=== PATIENT | male | born 1955 | race Caucasian/White ===

== ENCOUNTER → 2018-01-21 07:13 | Outpatient (CLI) | payer OTHER, SELFPAY ==
[2018-01-21 08:35] LABS: Absolute Lymphocyte Count 2.56 X10^3/ul (0.83-4.51); Absolute Neutrophil Count 3.2 X10^3/uL (2.0-7.7); Basophil# 0.04 X10^3/uL; Basophil% 0.6 % (0-1); Eosinophils% 3.1 % (0-5); Hematocrit 42.9 % (40-54); Hemoglobin 14.3 g/dl (13.0-16.5); Lymphocyte # 2.56 X10^3/ul (4.0); Lymphocyte % 39.3 % (19-41); Mean Corp Hgb Conc 33.3 g/gl (32-36); Mean Corpuscular Hgb 32.9 pg (27.0-32.0); Mean Corpuscular Volume 98.6 fL (80-94); Mean Platelet Vol. 9.4 fl (6.2-12.0); Monocyte# 0.51 X10^3/uL; Monocyte% 7.8 % (0-10); Neutrophil # 3.19 X10^3/uL (2.7-7.7); Neutrophil % 48.9 % (47-70); Platelet Count 261 K/mm3 (150-450); RBC Distribution Width CV 12.6 % (11.6-14.6); Red Blood Count 4.35 M/mm3 (4.6-6.2); White Blood Count 6.5 K/mm3 (4.4-11.0)
[2018-01-21 08:37] LABS: POSITIVE COUNT NO; POSITIVE DIFFERENTIAL NO; POSITIVE MORPHOLOGY NO
[2018-01-21 09:00] LABS: ALB/GLOB Ratio 1.2 RATIO (0.9-2.4); AST(SGOT) 16 U/L (15-37); Alanine Aminotransfer ALT/SGPT 19 U/L (16-61); Albumin, Serum 3.9 g/dL (3.2-5.0); Alkaline Phosphatase 96 U/L (45-117); Anion Gap 8 (5-15); BUN 13 mg/dL (7-18); BUN/Creat Ratio 14.3 RATIO (10-20); Calcium,Total 8.6 mg/dL (8.5-10.1); Chloride 104 mmol/L (98-107); Cholesterol 192 mg/dL (200); Creatinine, Serum 0.91 mg/dL (0.70-1.30); EST Glomerular Filtration Rate 89 mL/min (>60); Est Glom Filt Rate - Afr Amer 107 mL/min (>60); Globulin 3.3 g/dL (2.2-4.2); Glucose 85 mg/dL (74-106); High Density Lipoprotein 55 mg/dL; Potassium 3.9 mmol/L (3.5-5.1); Protein, Total 7.2 g/dL (6.4-8.2); Sodium Level 140 mmol/L (136-145); Thyroid Stim Hormone (TSH) 1.73 uIU/mL (0.358-3.74); Triglycerides 105 mg/dL; Very Low Density Lipoprotein 21 mg/dL (5-40)
== END ==
PROVIDERS: Family Provider Internal Medicine; PCP Internal Medicine; Visit Provider Nurse Practitioner Family
DX: Z00.00 Encounter for general adult medical examination without abnormal findings (principal); M10.9 Gout, unspecified; N52.9 Male erectile dysfunction, unspecified
CPT/HCPCS: 36415; 80053; 80061; 84443; 85025

== ENCOUNTER → 2019-01-23 07:11 | Outpatient (CLI) | payer OTHER, SELFPAY ==
[2019-01-18 16:06] VITALS: BMI 24.0
[2019-01-23 08:38] LABS: Absolute Neutrophil Count 3.6 X10^3/uL (2.0-7.7); Basophil# 0.03 X10^3/uL; Basophil% 0.4 % (0-1); Eosinophil# 0.18 X10^3/uL; Eosinophils% 2.6 % (0-5); Hematocrit 43.6 % (40-54); Hemoglobin 14.6 g/dl (13.0-16.5); Lymphocyte % 38.4 % (19-41); Mean Corp Hgb Conc 33.5 g/gl (32-36); Mean Corpuscular Hgb 33.6 pg (27.0-32.0); Mean Corpuscular Volume 100.2 fL (80-94); Mean Platelet Vol. 9.3 fl (6.2-12.0); Monocyte# 0.53 X10^3/uL; Monocyte% 7.5 % (0-10); Neutrophil # 3.59 X10^3/uL (2.7-7.7); Platelet Count 255 K/mm3 (150-450); RBC Distribution Width CV 12.1 % (11.6-14.6); Red Blood Count 4.35 M/mm3 (4.6-6.2)
[2019-01-23 08:39] LABS: POSITIVE COUNT NO; POSITIVE DIFFERENTIAL NO; POSITIVE MORPHOLOGY NO
[2019-01-23 09:04] LABS: Anion Gap 6 (5-15); BUN 13 mg/dL (7-18); BUN/Creat Ratio 14.3 RATIO (10-20); Calcium,Total 8.7 mg/dL (8.5-10.1); Chloride 107 mmol/L (98-107); Cholesterol 215 mg/dL (200); Creatinine, Serum 0.91 mg/dL (0.70-1.30); EST Glomerular Filtration Rate 89 mL/min (>60); Est Glom Filt Rate - Afr Amer 107 mL/min (>60); Glucose 86 mg/dL (74-106); High Density Lipoprotein 56 mg/dL; PSA,Total - Annual Screen 6.29 ng/mL (0.00-4.00); Potassium 3.9 mmol/L (3.5-5.1); Sodium Level 140 mmol/L (136-145); Thyroid Stim Hormone (TSH) 2.07 uIU/mL (0.358-3.74); Triglycerides 111 mg/dL; Very Low Density Lipoprotein 22 mg/dL (5-40)
== END ==
PROVIDERS: Family Provider Internal Medicine; PCP Internal Medicine; Referring Provider Nurse Practitioner Family; Visit Provider Nurse Practitioner Family
DX: R97.20 Elevated prostate specific antigen [PSA] (principal); Z13.0 Encounter for screening for diseases of the blood and blood-forming organs and certain disorders involving the immune mechanism
CPT/HCPCS: 36415; 80048; 80061; 84153; 84443; 85025; G0103

== ENCOUNTER → 2019-01-31 14:36 | Outpatient (CLI) | payer OTHER, SELFPAY ==
[2019-01-18 16:06] VITALS: BMI 24.0
[2019-01-31 16:26] LABS: Vitamin B12 570 pg/mL (211-911)
[2019-02-02 20:07] LABS: Folate, Hemolysate Test 486.5 ng/mL (Not Estab.); Folate, RBC (Hct) Test 41.5 % (37.5-51.0)
[2019-02-03 12:57] LABS: Folates, RBC Test 1172 ng/mL (>498)
== END ==
PROVIDERS: Family Provider Internal Medicine; PCP Internal Medicine; Referring Provider Nurse Practitioner Family; Visit Provider Nurse Practitioner Family
DX: D53.9 Nutritional anemia, unspecified (principal)
CPT/HCPCS: 36415; 82607; 82747; 83921; 85014

== ENCOUNTER 2019-11-30 22:58 | Emergency (ER) | payer OTHER, SELFPAY ==
[2019-01-18 16:06] VITALS: BMI 24.0
[2019-11-30 22:58] VITALS: BP 151/101; PULSE 64; RESP 18; TEMP 37.2; O2SAT 98; BMI 24.3
--- NOTE | 2019-11-30 23:34 | ED.VIS.GEN ---
History of Present Illness Chief Complaint: Abd Pain Informant: Patient Narrative: Stated he is having some right lower abdominal pain. It started approximately 6 to 7 hours ago. It is a dull discomfort and he will feel waxing and waning sharp pain. No history of kidney stones. It does not really hurt to push on it. He is had nausea with several episodes of vomiting. No home treatment. Current severity is mild to moderate. Does not feel any significant tenderness in his back but does feel some right-sided flank pain. No previous abdominal surgeries. He is never had this before. - Past Medical History (1) Elevated PSA Status: Acute (2) History of asthma Status: Acute (3) Erectile dysfunction Status: Chronic (4) Gout Status: Chronic (5) Rosacea Status: Chronic Past Medical History - Allergies and Home Meds Allergies/Adverse Reactions: Allergies No Known Allergies Allergy (Verified 12/01/19 00:05) Primary Care Physician: Gregg Powers MD [Primary Care Provider] - Prior records reviewed: Yes Past Medical History: - - See problem list Surgical History: noncontributory Lives: With Family Smoking Status: Never smoker Alcohol: None Drugs: None Review of Systems General: Denies: Chills, Fever, Sweats Eyes: Denies: Visual changes - bilaterally, Diplopia ENT: Denies: Rhinorrhea, Sore throat Cardiovascular: Denies: Chest pain, Palpitations Respiratory: Denies: Dyspnea, Cough, Dyspnea on exertion Gastrointestinal: Reports: Abdominal pain, Nausea, Vomiting. Denies: Diarrhea, Melena, Hematochezia Genitourinary: Denies: Dysuria, Hematuria, Frequency Musculoskeletal: Denies: Back pain, Extremity Pain Skin: Denies: Rash, Wounds Neurological: Denies: Headache, Weakness, Numbness Physical Exam Vital Signs/Narrative: Vital Signs Temp Pulse Resp BP Pulse Ox 11/30/19 22:58 98.9 F 64 18 151/101 H 98 General: Well nourished, Well developed, No Acute Distress Head: Normocephalic, Atraumatic Eyes: Perrl, EOMI ENT: Moist mucous membranes, No rhinorrhea Neck: Supple, Nontender Cardiovascular: Regular rate, Regular rhythm, No murmurs Respiratory: No distress, CTA bilaterally, Chest nontender Abdomen: Soft, Nondistended, Normal bowel sounds, Tender - Slight tenderness in the right flank and right lower quadrant. It is very minimal., -. Negative for: Nontender, Guarding, Rebound tenderness, Ventral hernia, Inguinal hernia, Umbilical hernia Back: Nontender, Normal Inspection Extremities: Nontender, No edema Skin: Normal color, No rash Neurological: Alert, Oriented x3, Cranial nerves II-XII grossly intact, Normal Strength, Normal Sensation Psychological: Normal affect, Normal Mood Diagnostic/Tx/Re-eval - Medical Decision Making Patient given IV fluids Toradol morphine. Lab work obtained. CAT scan of the abdomen pelvis obtained. Patient given Zofran. Lab work shows a leukocytosis otherwise nothing acute including normal urine with 0-5 red blood cells. CAT scan shows a distal 5 mm kidney stone with renal stones as well. Patient felt much better after treatment resting comfortably. Will be discharged with Percocet and Zofran to follow-up with urology ED Disposition - Plan for ED Patient: Disposition: Home or Assisted Living Diagnosis: Kidney stone on right side Instructions: KIDNEY STONE w/ Colic Prescriptions: Oxycodone HCl/Acetaminophen [Percocet 5/325] 1 - 2 tab PO Q6H PRN PRN 3 Days #12 tab PRN Reason: Pain Prescription Printed Ondansetron [Zofran Odt] 4 mg PO Q8H PRN PRN #10 tab PRN Reason: Nausea Prescription Printed Referrals: Eitan Patterson MD [STAFF PHYSICIAN] -
[2019-11-30 23:53] LABS: Absolute Lymphocyte Count 1.21 X10^3/uL (0.83-4.51); Absolute Neutrophil Count 12.6 X10^3/uL (2.0-7.7); Basophil# 0.02 X10^3/uL; Basophil% 0.1 % (0-1); Eosinophil# 0.01 X10^3/uL; Eosinophils% 0.1 % (0-5); Hematocrit 43.9 % (40-54); Hemoglobin 14.7 g/dL (13.0-16.5); Lymphocyte # 1.21 X10^3/ul (4.0); Lymphocyte % 8.4 % (19-41); Mean Corp Hgb Conc 33.5 g/dL (32-36); Mean Corpuscular Hgb 32.8 pg (27.0-32.0); Mean Platelet Vol. 9.9 fl (6.2-12.0); Monocyte# 0.46 X10^3/uL; Monocyte% 3.2 % (0-10); NRBC Flagged by Analyzer 0 % (0-5); Neutrophil # 12.64 X10^3/uL (2.7-7.7); Neutrophil % 87.8 % (47-70); POSITIVE COUNT YES; Platelet Count 242 K/mm3 (150-450); RBC Distribution Width CV 11.8 % (11.6-14.6); RBC Distribution Width SD 42.6 fl (35.1-43.9); Red Blood Count 4.48 M/mm3 (4.6-6.2); White Blood Count 14.4 K/mm3 (4.4-11.0)
[2019-12-01] MEDS: 0.9% Normal Saline 1,000 ML 1000 ML IV (00:03)
[2019-12-01] MEDS: Ketorolac 30 MG/ML Syringe IV (00:04)
[2019-12-01] MEDS: Ondansetron 4 MG/2 ML Vial IV (00:04)
[2019-12-01] MEDS: Morphine 4 MG/ML Syringe IV (00:07)
[2019-12-01 00:08] LABS: ALB/GLOB Ratio 1.4 RATIO (0.9-2.4); AST(SGOT) 16 U/L (15-37); Alanine Aminotransfer ALT/SGPT 22 U/L (16-61); Albumin, Serum 4.4 g/dL (3.2-5.0); Alkaline Phosphatase 104 U/L (45-117); Anion Gap 9 (5-15); BUN 17 mg/dL (7-18); BUN/Creat Ratio 15.2 RATIO (10-20); Calcium,Total 9.4 mg/dL (8.5-10.1); Chloride 101 mmol/L (98-107); Creatinine, Serum 1.12 mg/dL (0.70-1.30); EST Glomerular Filtration Rate 70 mL/min (>60); Est Glom Filt Rate - Afr Amer 84 mL/min (>60); Estimated Creatinine Clearance 79.65 ml/min; Globulin 3.2 g/dL (2.2-4.2); Glucose 144 mg/dL (74-106); Lipase 106 U/L (73-393); Potassium 3.6 mmol/L (3.5-5.1); Protein, Total 7.6 g/dL (6.4-8.2); Sodium Level 137 mmol/L (136-145)
[2019-12-01 00:15] LABS: Bacteria 0 SEEN /hpf (None Seen); Mucous, Urine 0 SEEN /hpf (<or=2+); Squamous Epithelial Cells - UA 0 SEEN /hpf (0-5); White Blood Cells 0 SEEN /hpf (0-5)
[2019-12-01 00:50] LABS: Color, Urine Yellow (Yellow); Glucose, Dipstick Normal (Normal); Ketone-Dipstick 50 mg/dl (Negative); Leukocyte Esterase-Dipstick Negative /ul (Negative); Nitrite-Dipstick Negative (Negative); Occult Blood-Urine 10 /ul (Negative); Protein-Dipstick Negative (Negative); Urine Bilirubin Dipstick Negative (Negative); Urine Clarity Sl. Cloudy (Clear); Urine Urobilinogen Normal (Normal)
[2019-12-01 00:56] LABS: Red Blood Cells-Urine 0-5 SEEN /hpf (0-5)
[2019-12-01 02:28] VITALS: BP 138/81; PULSE 79; RESP 18; O2SAT 100
--- NOTE | 2019-12-01 02:29 | ED.RN ---
THIS NURSE REVIEWED D/C INSTRUCTIONS WITH PT. PT VERBALIZED UNDERSTANDING OF INSTRUCTIONS. IV D/C. IV CATHETER INTACT. PT TOLERATED WELL. PT DENIES FURTHER NEEDS OR QUESTIONS AT THIS TIME.
--- NOTE | 2019-12-01 23:33 | CT_ITS ---
STUDY: CT ABDOMEN AND PELVIS WITHOUT CONTRAST REASON FOR EXAM: Male, 64 years old. RLQ PAIN, NAUSEA/VOMITING SINCE 4:30 PM, INCREASED WBC RADIATION DOSAGE (If Supplied By Facility): CTDIvol = ( 8.33 ) mGy, DLP = ( 412.02 ) mGycm TECHNIQUE: Transaxial images were obtained from the dome of the diaphragm to the symphysis pubis without oral contrast, and without intravenous contrast. Sagittal and coronal images were reconstructed. Individualized dose optimization techniques were used for this CT. COMPARISON: None. FINDINGS: The visualized lung bases are unremarkable. The visualized portions of the heart are within normal limits. Normal liver. Normal gallbladder and extrahepatic biliary system. Normal spleen. Normal pancreas. Normal bilateral adrenal glands. Multiple bilateral kidney stones are noted the largest measures 6 mm is in the left kidney. There is moderate right hydronephrosis and hydroureter due to presence of 5 mm stone in distal end of the right ureter at ureterovesical junction. Normal visualized stomach. Normal small intestine. There are multiple colonic diverticula consistent with diverticulosis. There is non-visualization of the appendix. Normal abdominal aorta. Normal inferior vena cava. Normal retroperitoneum. Normal urinary bladder. Normal abdominal wall. There is fusion of the sacroiliac joints suggesting chronic inflammatory arthritis. CT/Abdomen/Pelvis without Cont IMPRESSION: Multiple bilateral kidney stones are noted the largest measures 6 mm is in the left kidney. There is moderate right hydronephrosis and hydroureter due to presence of 5 mm stone in distal end of the right ureter at ureterovesical junction. Electronically Signed: Alyssa Harkins, at 2:02 EST Tel , Service support ,
== END 2019-12-01 02:32 | disposition home or self-care (01) ==
PROVIDERS: Emergency Provider Emergency Medicine; Family Provider Internal Medicine; PCP Internal Medicine
DX: N13.2 Hydronephrosis with renal and ureteral calculous obstruction (principal); M10.9 Gout, unspecified; J45.909 Unspecified asthma, uncomplicated; L71.9 Rosacea, unspecified
CPT/HCPCS: 74176; 80053; 81001; 83690; 85025; 96361; 96374; 96375; 99284; J7030; A4216; J2405

== ENCOUNTER → 2020-01-01 15:14 | Outpatient (CLI) | payer OTHER, SELFPAY ==
[2020-01-01 16:34] LABS: PSA,Total- Diagnostic 7.98 ng/mL (0.0-4.0)
== END ==
PROVIDERS: PCP Internal Medicine; Referring Provider Urology; Visit Provider Urology
DX: R97.20 Elevated prostate specific antigen [PSA] (principal)
CPT/HCPCS: 36415; 84153

== ENCOUNTER → 2020-01-11 11:07 | Outpatient (CLI) | payer OTHER, SELFPAY ==
--- NOTE | 2020-01-11 08:00 | PROSBIL_PTH ---
PATIENT: FLORENCE CHOUDHARY LOC: [facility] U#:[id number] AGE/SX: 70/M ROOM: RE01/11/[address]: Dr. Eitan Patterson MD : 1955 BED: DIS: SPEC #: [id number] RECD: 01/11/20 10:58 STATUS: PRIYANKA BRAD #: [id number] ABRIL: 01/11/20 08:[address]: Eitan Patterson DEPT: SURGICAL PATHOLOGY RECD BY: Diego Rivero ENTERED: 01/11/20 13:03 SP TYPE: PROST BX KALEY DR: Dr. Gregg Powers MD Tissues: A - PROSTATE RIGHT B - PROSTATE RIGHT C - PROSTATE RIGHT D - PROSTATE LEFT E - PROSTATE LEFT F - PROSTATE LEFT Procedures: PROSTATE BX HEADER OPERATION: Prostate biopsy PRE-OP DIAGNOSIS: Elevated PSA TISSUE SUBMITTED: A - Right apex, B - Right mid, C - Right base, D - Left apex, E - Left mid, F - Left base MICROSCOPIC DIAGNOSIS A. Right prostate, apex, core biopsy: Focal high-grade prostatic intraepithelial neoplasia (HGPIN). B. Right prostate, mid, core biopsy: Focal high-grade prostatic intraepithelial neoplasia (HGPIN). C. Right prostate, base, core biopsy: Focal high-grade prostatic intraepithelial neoplasia (HGPIN). D. Left prostate, apex, core biopsy: Benign prostatic tissue. E. Left prostate, mid, core biopsy: Focal high-grade prostatic intraepithelial neoplasia (HGPIN). F. Left prostate, base, core biopsy: Focal high-grade prostatic intraepithelial neoplasia (HGPIN). AM:kaur 01/12/20 MICROSCOPIC DESCRIPTION Slides are reviewed. GROSS DESCRIPTION A - Received is one container designated prostate, right apex. The specimen consists of two elongated fragments of light sanabria-white soft tissue each measuring 1 cm in length and 0.1 cm in diameter. The specimen is totally submitted in one cassette. B - Received is one container designated prostate, right mid. The specimen consists of two elongated fragments of light sanabria-white soft tissue each measuring 1 cm in length and 0.1 cm in diameter. The specimen is totally submitted in one cassette. C - Received is one container designated prostate, right base. The specimen consists of two elongated fragments of light sanabria-white soft tissue each measuring 1 cm in length and 0.1 cm in diameter. The specimen is totally submitted in one cassette. D - Received is one container designated prostate, left apex. The specimen consists of two elongated fragments of light sanabria-white soft tissue each measuring 0.8 cm in length and 0.1 cm in diameter. The specimen is totally submitted in one cassette. E - Received is one container designated prostate, left mid. The specimen consists of two elongated fragments of light sanabria-white soft tissue each measuring 1 cm in length and 0.1 cm in diameter. The specimen is totally submitted in one cassette. F - Received is one container designated prostate, left base. The specimen consists of two elongated fragments of light sanabria-white soft tissue each measuring 1 cm in length and 0.1 cm in diameter. The specimen is totally submitted in one cassette. / AM:kaur 01/11/20 TC:5 CPT: 66411 x6
== END ==
PROVIDERS: PCP Internal Medicine; Referring Provider Urology; Visit Provider Urology
DX: R97.20 Elevated prostate specific antigen [PSA] (principal)
CPT/HCPCS: 88305; G0416

== ENCOUNTER → 2020-02-01 08:02 | Outpatient (CLI) | payer OTHER, SELFPAY ==
[2020-01-31 14:00] VITALS: BMI 24.3
[2020-02-01 12:41] LABS: Absolute Lymphocyte Count 2.51 X10^3/uL (0.83-4.51); Absolute Neutrophil Count 5.2 X10^3/uL (2.0-7.7); Basophil# 0.04 X10^3/uL; Basophil% 0.5 % (0-1); Eosinophil# 0.14 X10^3/uL; Eosinophils% 1.7 % (0-5); Hematocrit 43.9 % (40-54); Hemoglobin 14.1 g/dL (13.0-16.5); Lymphocyte # 2.51 X10^3/ul (4.0); Lymphocyte % 29.6 % (19-41); Mean Corp Hgb Conc 32.1 g/dL (32-36); Mean Corpuscular Hgb 32.6 pg (27.0-32.0); Mean Corpuscular Volume 101.6 fL (80-94); Mean Platelet Vol. 9.6 fl (6.2-12.0); Monocyte# 0.62 X10^3/uL; Monocyte% 7.3 % (0-10); NRBC Flagged by Analyzer 0 % (0-5); Neutrophil # 5.15 X10^3/uL (2.7-7.7); Neutrophil % 60.7 % (47-70); Platelet Count 280 K/mm3 (150-450); RBC Distribution Width CV 12.2 % (11.6-14.6); Red Blood Count 4.32 M/mm3 (4.6-6.2); White Blood Count 8.5 K/mm3 (4.4-11.0)
[2020-02-01 13:00] LABS: BUN 12 mg/dL (7-18); Creatinine, Serum 0.93 mg/dL (0.70-1.30); Glucose 83 mg/dL (74-106)
[2020-02-01 13:01] LABS: Anion Gap 3 (5-15); BUN/Creat Ratio 12.9 RATIO (10-20); Chloride 106 mmol/L (98-107); Cholesterol 201 mg/dL (200); EST Glomerular Filtration Rate 86 mL/min (>60); Est Glom Filt Rate - Afr Amer 104 mL/min (>60); High Density Lipoprotein 55 mg/dL; Potassium 4.5 mmol/L (3.5-5.1); Sodium Level 139 mmol/L (136-145); Thyroid Stim Hormone (TSH) 1.49 uIU/mL (0.358-3.74); Triglycerides 65 mg/dL; Very Low Density Lipoprotein 13 mg/dL (5-40)
== END ==
PROVIDERS: PCP Internal Medicine; Referring Provider Nurse Practitioner Family; Visit Provider Nurse Practitioner Family
DX: Z00.00 Encounter for general adult medical examination without abnormal findings (principal)
CPT/HCPCS: 36415; 80048; 80061; 84443; 85025

== ENCOUNTER → 2020-06-10 17:02 | Outpatient (CLI) | payer OTHER, SELFPAY ==
[2020-01-31 14:00] VITALS: BMI 24.3
--- NOTE | 2020-06-10 | IMM_PTH ---
PATIENT: FLORENCE CHOUDHARY LOC: [facility] U#:[id number] AGE/SX: 70/M ROOM: RE06/10/[address]: Dr. Eitan Patterson MD : 1955 BED: DIS: SPEC #: [id number] RECD: 06/12/20 13:01 STATUS: PRIYANKA REDina #: [id number] ABRIL: 06/10/20 00:[address]: Eitan Patterson DEPT: IMMUNOHISTOCHEMISTRY RECD BY: Ijeoma Means ENTERED: 06/12/20 13:01 SP TYPE: IMMUNO OTHR DR: Dr. Gregg Powers MD Tissues: A - PROSTATE RIGHT E - PROSTATE LEFT F - PROSTATE LEFT Procedures: 34BE12 (add) P40 (add) 34BE12 (initial) PHYSICIAN & INSTITUTION [place] [id number] SPECIMEN INFORMATION: Tissue Source: A - Right prostate, apex, E - Left prostate, mid, F - Left prostate, base Clinical Info: Elevated PSA Specimen Number: [id number] A, E & F CPT code: 84284, 75849 x5 METHODOLOGY: Deparaffinized sections of prefer/formalin-fixed tissue or PAP/DQ stained slides are incubated with monoclonal/polyclonal antibodies/oligonucleotide probes. Localization is made via biotin free immunoperoxidase method. Appropriate controls are performed and reacted as expected. Results on target cell population are indicated in the following table: RESULTS: ANTIBODY / CLONE RESULT Block A 34BE12 (34BE12) positive P40 (BC28) positive Block E 34BE12 (34BE12) negative P40 (BC28) negative Block F 34BE12 (34BE12) positive, rare P40 (BC28) positive, rare These tests were developed and their performance characteristics determined by [facility]. They may not have been cleared or approved by the U.S. Food and Drug Administration. The FDA has determined that such clearance or approval is not necessary. The above immunohistochemical/dualISH markers are ordered and reviewed by the Pathologist. INTERPRETATION: A. Right prostate, apex, core biopsy: Benign prostatic tissue. E. Left prostate, mid, core biopsy: Adenocarcinoma. F. Left prostate, base, core biopsy: Focal atypical acinar proliferation. AM:kaur 06/13/20
--- NOTE | 2020-06-10 08:00 | PROSBIL_PTH ---
PATIENT: FLORENCE CHOUDHARY LOC: [facility] U#:[id number] AGE/SX: 70/M ROOM: RE06/10/[address]: Dr. Eitan Patterson MD : 1955 BED: DIS: SPEC #: [id number] RECD: 06/10/20 16:56 STATUS: PRIYANKA BRAD #: [id number] ABRIL: 06/10/20 08:[address]: Eitan Patterson DEPT: SURGICAL PATHOLOGY RECD BY: Carter Polk ENTERED: 06/11/20 08:04 SP TYPE: PROST BX KALEY DR: Dr. Gregg Powers MD Tissues: A - PROSTATE RIGHT B - PROSTATE RIGHT C - PROSTATE RIGHT D - PROSTATE LEFT E - PROSTATE LEFT F - PROSTATE LEFT Procedures: PROSTATE BX HEADER OPERATION: Prostate biopsy PRE-OP DIAGNOSIS: Elevated PSA TISSUE SUBMITTED: A - Right apex, B - Right mid, C - Right base, D - Left apex, E - Left mid, F - Left base MICROSCOPIC DIAGNOSIS A. Right prostate, apex, core biopsy: Chronic inflammation with focal acute inflammation. Glandular atrophy. See comment. B. Right prostate, mid, core biopsy: Mild chronic inflammation with focal acute inflammation. Glandular atrophy. C. Right prostate, base, core biopsy: Mild chronic inflammation. D. Left prostate, apex, core biopsy: Acute prostatitis. E. Left prostate, mid, core biopsy: Adenocarcinoma. Boomer grade: 6 (3+3) Cores involved: 1 out of 2 cores Tissue involved: 15% Greatest tumor length: 3 mm Focal high-grade prostatic intraepithelial neoplasia (HGPIN). Chronic inflammation. See comment. F. Left prostate, base, core biopsy: Focal high-grade prostatic intraepithelial neoplasia (HGPIN). Focal atypical acinar proliferation. Mild chronic inflammation with focal acute inflammation. See comment. AM:kaur 06/12/20 COMMENT A, E & F - Immunohistochemistry ([id number]) supports the above diagnosis. Case has been reviewed in consultation with Dr. Marquez who concurs with the above diagnosis. IDC:CARLYN MICROSCOPIC DESCRIPTION Slides are reviewed. GROSS DESCRIPTION A - Received is one container designated prostate, right apex. The specimen consists of two elongated fragments of light sanabria-white soft tissue measuring 0.8 and 1.2 cm in length and 0.1 cm in diameter. The specimen is totally submitted in one cassette. B - Received is one container designated prostate, right mid. The specimen consists of two elongated fragments of light sanabria-white soft tissue each measuring 1.2 cm in length and 0.1 cm in diameter. The specimen is totally submitted in one cassette. C - Received is one container designated prostate, right base. The specimen consists of two elongated fragments of light sanabria-white soft tissue each measuring 1.5 cm in length and 0.1 cm in diameter. The specimen is totally submitted in one cassette. D - Received is one container designated prostate, left apex. The specimen consists of two elongated fragments of light sanabria-white soft tissue measuring 0.8 and 1.5 cm in length and 0.1 cm in diameter. The specimen is totally submitted in one cassette. E - Received is one container designated prostate, left mid. The specimen consists of two elongated fragments of light sanabria-white soft tissue each measuring 1.5 cm in length and 0.1 cm in diameter. The specimen is totally submitted in one cassette. F - Received is one container designated prostate, left base. The specimen consists of two elongated fragments of light sanabria-white soft tissue measuring 1.5 and 2 cm in length and 0.1 cm in diameter. The specimen is totally submitted in one cassette. / SJ:rg 06/11/20 TC:0 CPT: 62340 x6 ADDENDUM ADDENDUM ADDENDUM ADDENDUM ADDENDUM ADDENDUM ADDENDUM ADDENDUM 06/28/2020 10:04 ADDENDUM 06/28/2020 10:04 ADDENDUM 06/28/2020 10:04 ADDENDUM 06/28/2020 10:04 ADDENDUM 06/28/2020 10:04 An order for Oncotype testing was received from Dr. Patterson. This necessitated case review, block and slide selection by pathologist at [facility]. Genomic Prostate Score = 33 Results of the complete Oncotype testing ([employer] report) are viewable in EMR under: Reports - Pathology - Lab Pathology Report, Scanned.
== END ==
PROVIDERS: PCP Internal Medicine; Visit Provider Urology
DX: R97.20 Elevated prostate specific antigen [PSA] (principal)
CPT/HCPCS: 88305; 88341; 88342; G0416

== ENCOUNTER → 2020-09-04 07:07 | Outpatient (CLI) | payer OTHER, SELFPAY ==
[2020-01-31 14:00] VITALS: BMI 24.3
[2020-09-04 08:13] LABS: PSA,Total- Diagnostic 6.39 ng/mL (0.0-4.0)
== END ==
PROVIDERS: PCP Internal Medicine; Referring Provider Urology; Visit Provider Urology
DX: C61 Malignant neoplasm of prostate (principal)
CPT/HCPCS: 36415; 84153

== ENCOUNTER → 2020-12-04 08:31 | Outpatient (CLI) | payer OTHER, SELFPAY ==
[2020-01-31 14:00] VITALS: BMI 24.3
== END ==
PROVIDERS: PCP Internal Medicine; Referring Provider Urology; Visit Provider Urology
DX: C61 Malignant neoplasm of prostate (principal)
CPT/HCPCS: 36415; 84153

== ENCOUNTER → 2020-12-16 06:57 | Outpatient (CLI) | payer OTHER, SELFPAY ==
[2020-01-31 14:00] VITALS: BMI 24.3
== END ==
LOC: LAB.FUTURE 07:00 → LAB 07:02
PROVIDERS: PCP Internal Medicine; Referring Provider Urology; Visit Provider Urology
DX: R97.20 Elevated prostate specific antigen [PSA] (principal)
CPT/HCPCS: 36415; 84153

== ENCOUNTER → 2021-01-31 15:47 | Outpatient (CLI) | payer OTHER, SELFPAY ==
[2021-01-31 15:25] VITALS: BMI 24.2
[2021-01-31 16:49] LABS: Absolute Lymphocyte Count 2.94 X10^3/uL (0.83-4.51); Absolute Neutrophil Count 5.9 X10^3/uL (2.0-7.7); Basophil# 0.05 X10^3/uL; Basophil% 0.5 % (0-1); Eosinophil# 0.15 X10^3/uL; Eosinophils% 1.5 % (0-5); Hematocrit 44.6 % (40-54); Hemoglobin 15.3 g/dL (13.0-16.5); Lymphocyte # 2.94 X10^3/ul (4.0); Lymphocyte % 30.3 % (19-41); Mean Corp Hgb Conc 34.3 g/dL (32-36); Mean Corpuscular Hgb 34.4 pg (27.0-32.0); Mean Corpuscular Volume 100.2 fL (80-94); Mean Platelet Vol. 9.2 fl (6.2-12.0); Monocyte# 0.62 X10^3/uL; Monocyte% 6.4 % (0-10); NRBC Flagged by Analyzer 0 % (0-5); Neutrophil # 5.89 X10^3/uL (2.7-7.7); Neutrophil % 60.9 % (47-70); Platelet Count 287 K/mm3 (150-450); RBC Distribution Width CV 12.1 % (11.6-14.6); RBC Distribution Width SD 44.9 fl (35.1-43.9); Red Blood Count 4.45 M/mm3 (4.6-6.2); White Blood Count 9.7 K/mm3 (4.4-11.0)
[2021-01-31 17:17] LABS: ALB/GLOB Ratio 1.2 RATIO (0.9-2.4); AST(SGOT) 14 U/L (15-37); Alanine Aminotransfer ALT/SGPT 24 U/L (16-61); Alkaline Phosphatase 102 U/L (45-117); Anion Gap 3 (5-15); BUN 17 mg/dL (7-18); BUN/Creat Ratio 17.9 RATIO (10-20); Calcium,Total 8.8 mg/dL (8.5-10.1); Chloride 105 mmol/L (98-107); Cholesterol 227 mg/dL (200); Creatinine, Serum 0.95 mg/dL (0.70-1.30); EST Glomerular Filtration Rate 84 mL/min (>60); Est Glom Filt Rate - Afr Amer 101 mL/min (>60); Globulin 3.4 g/dL (2.2-4.2); Glucose 88 mg/dL (74-106); High Density Lipoprotein 44 mg/dL; Potassium 4.6 mmol/L (3.5-5.1); Protein, Total 7.4 g/dL (6.4-8.2); Sodium Level 139 mmol/L (136-145); Thyroid Stim Hormone (TSH) 1.29 uIU/mL (0.358-3.74); Triglycerides 320 mg/dL; Very Low Density Lipoprotein 64 mg/dL (5-40)
== END ==
PROVIDERS: PCP Internal Medicine; Referring Provider Nurse Practitioner Family; Visit Provider Nurse Practitioner Family
DX: Z00.00 Encounter for general adult medical examination without abnormal findings (principal)
CPT/HCPCS: 36415; 80053; 80061; 84443; 85025

== ENCOUNTER → 2021-03-17 08:00 | Outpatient (CLI) | payer OTHER, SELFPAY ==
[2021-01-31 15:25] VITALS: BMI 24.2
[2021-03-17 13:00] LABS: Cholesterol 222 mg/dL (200); High Density Lipoprotein 58 mg/dL; Triglycerides 155 mg/dL; Very Low Density Lipoprotein 31 mg/dL (5-40)
== END ==
PROVIDERS: PCP Internal Medicine; Referring Provider Nurse Practitioner Family; Visit Provider Nurse Practitioner Family
DX: E78.5 Hyperlipidemia, unspecified (principal)
CPT/HCPCS: 36415; 80061

== ENCOUNTER → 2021-04-17 12:51 | Outpatient (CLI) | payer OTHER, SELFPAY ==
[2021-03-27 08:22] VITALS: BMI 24.2
[2021-04-17 16:05] LABS: PSA,Total- Diagnostic 7.92 ng/mL (0.0-4.0)
== END ==
PROVIDERS: PCP Internal Medicine; Referring Provider Urology; Visit Provider Urology
DX: R97.20 Elevated prostate specific antigen [PSA] (principal)
CPT/HCPCS: 36415; 84153

== ENCOUNTER → 2021-10-16 07:08 | Outpatient (CLI) | payer MEDICARE, OTHER, SELFPAY ==
[2021-10-16 08:22] LABS: PSA,Total- Diagnostic 9.15 ng/mL (0.0-4.0)
== END ==
PROVIDERS: PCP Internal Medicine; Referring Provider Urology; Visit Provider Urology
DX: C61 Malignant neoplasm of prostate (principal)
CPT/HCPCS: 36415; 84153

== ENCOUNTER 2022-02-06 08:16 | Outpatient (CLI) | payer MEDICARE, OTHER, SELFPAY ==
[2022-02-06 12:12] LABS: Absolute Lymphocyte Count 1.99 X10^3/uL (0.83-4.51); Absolute Neutrophil Count 4.8 X10^3/uL (2.0-7.7); Basophil# 0.04 X10^3/uL; Basophil% 0.5 % (0-1); Eosinophil# 0.13 X10^3/uL; Eosinophils% 1.8 % (0-5); Hematocrit 42.4 % (40-54); Hemoglobin 14.5 g/dL (13.0-16.5); Lymphocyte # 1.99 X10^3/ul (0.83-4.51); Lymphocyte % 26.9 % (19-41); Mean Corp Hgb Conc 34.2 g/dL (32-36); Mean Corpuscular Volume 99.3 fL (80-94); Mean Platelet Vol. 9.3 fl (6.2-12.0); Monocyte# 0.46 X10^3/uL; Monocyte% 6.2 % (0-10); NRBC Flagged by Analyzer 0 % (0-5); Neutrophil # 4.75 X10^3/uL (2.7-7.7); Neutrophil % 64.3 % (47-70); Platelet Count 290 K/mm3 (150-450); RBC Distribution Width CV 12.2 % (11.6-14.6); RBC Distribution Width SD 44.5 fl (35.1-43.9); Red Blood Count 4.27 M/mm3 (4.6-6.2); White Blood Count 7.4 K/mm3 (4.4-11.0)
[2022-02-06 12:39] LABS: ALB/GLOB Ratio 1.2 RATIO (0.9-2.4); AST(SGOT) 11 U/L (15-37); Alanine Aminotransfer ALT/SGPT 16 U/L (16-61); Albumin, Serum 3.8 g/dL (3.2-5.0); Alkaline Phosphatase 94 U/L (45-117); Anion Gap 5 (5-15); BUN 13 mg/dL (7-18); Calcium,Total 8.9 mg/dL (8.5-10.1); Chloride 106 mmol/L (98-107); Cholesterol 194 mg/dL (200); Creatinine, Serum 0.86 mg/dL (0.70-1.30); EST Glomerular Filtration Rate 93 mL/min (>60); Est Glom Filt Rate - Afr Amer 113 mL/min (>60); Globulin 3.2 g/dL (2.2-4.2); Glucose 98 mg/dL (74-106); High Density Lipoprotein 49 mg/dL; Sodium Level 137 mmol/L (136-145); Thyroid Stim Hormone (TSH) 1.46 uIU/mL (0.358-3.74); Triglycerides 124 mg/dL; Very Low Density Lipoprotein 25 mg/dL (5-40)
== END 2022-02-06 23:59 | disposition home or self-care (01) ==
LOC: BIMLAB 08:17
PROVIDERS: PCP Internal Medicine; Referring Provider Nurse Practitioner Family; Visit Provider Nurse Practitioner Family
DX: Z00.00 Encounter for general adult medical examination without abnormal findings (principal); M10.9 Gout, unspecified; M19.90 Unspecified osteoarthritis, unspecified site; N52.9 Male erectile dysfunction, unspecified; R53.83 Other fatigue
CPT/HCPCS: 36415; 80053; 80061; 84443; 85025

== ENCOUNTER → 2022-04-08 | Outpatient (CLI) | payer MEDICARE, OTHER, SELFPAY ==
[2022-04-08 09:13] LABS: PSA,Total- Diagnostic 7.74 ng/mL (0.0-4.0)
== END | disposition home or self-care (01) ==
LOC: LAB 07:53
PROVIDERS: PCP Internal Medicine; Referring Provider Urology; Visit Provider Urology
DX: R97.20 Elevated prostate specific antigen [PSA] (principal)
CPT/HCPCS: 36415; 84153

== ENCOUNTER → 2022-07-21 | Outpatient (CLI) | payer MEDICARE, OTHER, SELFPAY ==
[2022-07-21 12:24] LABS: Basophil# 0.03 X10^3/uL; Basophil% 0.4 % (0-1); Eosinophil# 0.17 X10^3/uL; Eosinophils% 2.4 % (0-5); Hematocrit 43.6 % (40-54); Hemoglobin 14.3 g/dL (13.0-16.5); Lymphocyte % 33.8 % (19-41); Mean Corp Hgb Conc 32.8 g/dL (32-36); Mean Corpuscular Hgb 33.2 pg (27.0-32.0); Mean Corpuscular Volume 101.2 fL (80-94); Mean Platelet Vol. 9.3 fl (6.2-12.0); Monocyte# 0.43 X10^3/uL; Monocyte% 6.1 % (0-10); NRBC Flagged by Analyzer 0 % (0-5); Neutrophil # 4.03 X10^3/uL (2.7-7.7); Neutrophil % 56.7 % (47-70); Platelet Count 270 K/mm3 (150-450); RBC Distribution Width CV 12.3 % (11.6-14.6); RBC Distribution Width SD 46.1 fl (35.1-43.9); Red Blood Count 4.31 M/mm3 (4.6-6.2); White Blood Count 7.1 K/mm3 (4.4-11.0)
[2022-07-21 13:47] LABS: Anion Gap 6 (5-15); BUN 16 mg/dL (7-18); BUN/Creat Ratio 19.7 RATIO (10-20); Calcium,Total 9.7 mg/dL (8.5-10.1); Chloride 107 mmol/L (98-107); Creatinine, Serum 0.81 mg/dL (0.70-1.30); EST Glomerular Filtration Rate 100 mL/min (>60); Est Glom Filt Rate - Afr Amer 121 mL/min (>60); Glucose 88 mg/dL (74-106); Potassium 4.6 mmol/L (3.5-5.1); Sodium Level 140 mmol/L (136-145); Thyroid Stim Hormone (TSH) 1.73 uIU/mL (0.358-3.74)
== END | disposition home or self-care (01) ==
PROVIDERS: PCP Internal Medicine; Referring Provider Nurse Practitioner Family; Visit Provider Nurse Practitioner Family
DX: Z01.818 Encounter for other preprocedural examination (principal); Z79.899 Other long term (current) drug therapy
CPT/HCPCS: 36415; 80048; 82040; 84443; 85025

== ENCOUNTER → 2022-07-27 | Outpatient (CLI) | payer MEDICARE, OTHER, SELFPAY ==
--- NOTE | 2022-07-27 08:39 | EKG12_ITS ---
Test Reason : PREOP Blood Pressure : / mmHG Vent. Rate : 075 BPM Atrial Rate : 075 BPM P-R Int : 184 ms QRS Dur : 134 ms QT Int : 394 ms P-R-T Axes : 058 084 022 degrees QTc Int : 439 ms Normal sinus rhythm Right bundle branch block Abnormal ECG Confirmed by AIDAN CESAR, ROC ([id number]), editorial manager GLENYS LANZA ([id number]) on 07/28/2022 7:39:52 AM Referred By: Dwight Gale Confirmed By:ROC BERMUDEZ MD
== END | disposition home or self-care (01) ==
LOC: PSN 08:38
PROVIDERS: PCP Internal Medicine; Referring Provider Physician Assistant Surgical; Visit Provider Physician Assistant Surgical
DX: Z01.810 Encounter for preprocedural cardiovascular examination (principal)
CPT/HCPCS: 93005

== ENCOUNTER 2022-08-15 03:53 | Inpatient (IN) | payer MEDICARE, OTHER, SELFPAY ==
[2022-08-15] VITALS (14 sets, daily range): BP systolic 137–192; BP diastolic 76–98; PULSE 17–102; RESP 16–18; TEMP 35.8–37.3; O2SAT 92–100; BMI 25.3; BMI 23.2
[2022-08-15 04:19] LABS: Absolute Neutrophil Count 8.1 X10^3/uL (2.0-7.7); Basophil# 0.05 X10^3/uL; Basophil% 0.4 % (0-1); Eosinophil# 0.22 X10^3/uL; Eosinophils% 1.8 % (0-5); Hematocrit 35.4 % (40-54); Hemoglobin 12.2 g/dL (13.0-16.5); Lymphocyte % 23.4 % (19-41); Mean Corp Hgb Conc 34.5 g/dL (32-36); Mean Corpuscular Hgb 33.5 pg (27.0-32.0); Mean Corpuscular Volume 97.3 fL (80-94); Mean Platelet Vol. 8.5 fl (6.2-12.0); Monocyte# 1.05 X10^3/uL; Monocyte% 8.5 % (0-10); NRBC Flagged by Analyzer 0 % (0-5); Neutrophil # 8.08 X10^3/uL (2.7-7.7); Neutrophil % 65.1 % (47-70); Platelet Count 399 K/mm3 (150-450); RBC Distribution Width CV 11.9 % (11.6-14.6); RBC Distribution Width SD 42.4 fl (35.1-43.9); Red Blood Count 3.64 M/mm3 (4.6-6.2); White Blood Count 12.4 K/mm3 (4.4-11.0)
--- NOTE | 2022-08-15 04:27 | EX.ED.DYSGE1 ---
HPI History of Present Illness Chief Complaint: Abd Pain Narrative Narrative: Patient is a 67-year-old male with past medical history of osteoarthritis asthma and rosacea who recently underwent outpatient surgery on his left hip. He states that since returning home from the surgery he has been having difficulty with bowel movements despite stopping the oxycodone a few days ago. He states that he has had no previous abdominal surgeries and he had a colonoscopy roughly 5 years ago which showed no signs of intestinal cancer. He states that he feels in the past 24 hours he has been having abdominal distention and increased pain and a sensation to have a bowel movement without being able to do so. He states he is concerned that he could be developing a bowel blockage and therefore comes in for evaluation. [facility] Medical History Elevated PSA Encounter for preventative adult health care examination Fracture of left hip Gout History of asthma Kidney stones Osteoarthritis Preoperative clearance Rosacea Home Medications potassium citrate 15 mEq (1,620 mg) tablet,extended release 15 meq PO BID 01/31/20 [History Last Taken Unknown] allopurinol 300 mg tablet See Rx Instructions .Route .COMPLEX #90 tabs 02/06/22 [Rx Last Taken Unknown] meloxicam 15 mg tablet 7.5 - 15 mg PO DAILY PRN osteoarthritis pain #30 tabs 02/06/22 [Rx Last Taken Unknown] acetaminophen 325 mg capsule (Tylenol) 325 mg PO ONCE PRN Pain 07/21/22 [History Last Taken Unknown] cholecalciferol (vitamin D3) 25 mcg (1,000 unit) capsule 25 mcg PO DAILY 07/21/22 [History Last Taken Unknown] famotidine 20 mg tablet 20 mg PO DAILY 08/15/22 [History Last Taken Unknown] Allergy/AdvReac Type Severity Reaction Status Date / Time No Known Allergies Allergy Verified 07/21/22 08:05 Family History Mother Hypertension Surgical History History of tonsillectomy History of vasectomy Social History Smoking Status: Never smoker alcohol intake: never substance use type: does not use what type of physical activity do you participate in: other details: basketball frequency: 3-4 times per week ROS ROS ED Constitutional Constitutional ED: Denies chills or fever(s) ENT ENT ED: Denies sore throat Cardiovascular Cardiovascular: Denies chest pain Respiratory/Chest Respiratory/Chest: Denies cough or dyspnea Gastrointestinal Gastrointestinal: Reports abdominal pain and constipation; Denies diarrhea, nausea or vomiting Genitourinary Genitourinary ED: Denies dysuria Musculoskeletal Musculoskeletal: Denies back pain or myalgias Integumentary Denies rash Neurologic Neurologic: Denies headache(s) Hematologic/Lymphatic Hematologic/Lymphatic: Denies easy bleeding or easy bruising EXAM Physical Exam Const Vital Signs: 08/15/22 03:53 Temperature 96.4 F L Temperature Source Temporal Pulse Rate 93 Respiratory Rate 18 Blood Pressure 192/98 H Blood Pressure Mean 129 Pulse Ox 100 Oxygen Delivery Method Room Air Positive well nourished and well developed General Appearance ED: well developed HEENT Reports moist mucous membranes Eyes PERRL and EOMs intact bilaterally Neck supple Resp normal respiratory effort and clear to auscultation bilaterally Cardio regular rate and regular rhythm Rate: other Other Details: Radial pulses are plus 2 out of 4 bilaterally they are equal and symmetric GI non-distended GI Narrative: Abdomen is soft and nondistended with hypoactive bowel sounds. There is organomegaly noted in the midline suprapubic region most consistent with a distended bladder. No voluntary guarding or rigidity. No pulsatile mass Auscultation: hypoactive bowel sounds Palpation: soft Extremity Extremity Narrative: Recent postsurgical changes to the left hip but no acute findings Neuro oriented x3 and CN's II-XII intact bilaterally Sensorium / Orientation: alert Psych mental status grossly normal Skin no rashes or lesions noted MDM MDM MDM Narrative Medical decision making narrative: Patient presented to the ER hypertensive but was in pain and therefore I did not feel there is a need for emergent intervention. He reported sensation of abdominal pain and had concerned that he was obstructed but had no real risk factors for this. On exam he has organomegaly in the suprapubic mid abdominal region concerning for acute urinary retention. Therefore a Swift catheter was placed and 2 L of urine were drained from his bladder. He states the symptoms have been occurring since surgery roughly 5 days ago and basic labs revealed acute kidney injury with a creatinine of 7.5. At this time with the drastic elevation to his creatinine I do not feel it is safe to be discharged home and will need to be used kept in the hospital for further observation to ensure his kidney function is improving now that a catheter has been placed. Therefore the hospitalist was contacted and he does agree to accept the patient at this time. Lab Data Attestation: I reviewed the patient's lab results. Labs: Laboratory Results - last 24 hr 08/15/22 08/15/22 08/15/22 04:05 04:05 04:25 WBC 12.4 H RBC 3.64 L Hgb 12.2 L Hct 35.4 L MCV 97.3 H MCH 33.5 H MCHC 34.5 RDW Std Deviation 42.4 RDW Coeff of Duncan 11.9 Plt Count 399 MPV 8.5 Immature Gran % (Auto) 0.800 Neut % (Auto) 65.1 Lymph % (Auto) 23.4 [place] % (Auto) 8.5 Eos % (Auto) 1.8 Baso % (Auto) 0.4 Absolute Neuts (auto) 8.1 H Absolute Lymphs (auto) 2.90 Nucleated RBC % 0 Sodium 123 L Potassium 4.8 Chloride 85 L Carbon Dioxide 26.0 Anion Gap 12 BUN 56 H Creatinine 7.50 H* Estim Creat Clear Calc 11.11 Est GFR (MDRD) Af Amer 9 L Est GFR (MDRD) Non-Af 8 L BUN/Creatinine Ratio 7.5 L Glucose 105 Calcium 8.9 Magnesium 4.3 H Urine Color Straw Urine Clarity Clear Urine pH 7.0 Ur Specific [place] 1.005 Urine Protein 15 H Urine Glucose (UA) Normal Urine Ketones 5 H Urine Occult Blood 250 H Urine Nitrite Negative Urine Bilirubin Negative Urine Urobilinogen Normal Ur Leukocyte Esterase 25 H Urine RBC 25-50 SEEN Urine WBC 0-5 SEEN Ur Squamous Epith Cells 0 SEEN Urine Bacteria 0 SEEN Urine Mucus 0 SEEN Ur Random Sodium 08/15/22 04:25 WBC RBC Hgb Hct MCV MCH MCHC RDW Std Deviation RDW Coeff of [place] Plt Count MPV Immature Gran % (Auto) Neut % (Auto) Lymph % (Auto) [place] % (Auto) Eos % (Auto) Baso % (Auto) Absolute Neuts (auto) Absolute Lymphs (auto) Nucleated RBC % Sodium Potassium Chloride Carbon Dioxide Anion Gap BUN Creatinine Estim Creat Clear Calc Est GFR (MDRD) Af Amer Est GFR (MDRD) Non-Af BUN/Creatinine Ratio Glucose Calcium Magnesium Urine Color Urine Clarity Urine pH Ur Specific [place] Urine Protein Urine Glucose (UA) Urine Ketones Urine Occult Blood Urine Nitrite Urine Bilirubin Urine Urobilinogen Ur Leukocyte Esterase Urine RBC Urine WBC Ur Squamous Epith Cells Urine Bacteria Urine Mucus Ur Random Sodium 73 Discharge Plan Dx/Rx/DC Orders Clinical Impression: Acute kidney injury, Acute urinary retention, Acute hyponatremia Disposition Disposition: Acute Care Hospital [facility]
[2022-08-15 04:33] LABS: Bacteria 0 SEEN /hpf (None Seen); Mucous, Urine 0 SEEN /hpf (<or=2+); Squamous Epithelial Cells - UA 0 SEEN /hpf (0-5)
[2022-08-15 04:34] LABS: Color, Urine Straw (Yellow); Glucose, Dipstick Normal (Normal); Ketone-Dipstick 5 mg/dl (Negative); Leukocyte Esterase-Dipstick 25 /ul (Negative); Nitrite-Dipstick Negative (Negative); Occult Blood-Urine 250 /ul (Negative); Protein-Dipstick 15 mg/dl (Negative); Specific Gravity, Urine 1.005 (1.002-1.030); Urine Bilirubin Dipstick Negative (Negative); Urine Clarity Clear (Clear); Urine Urobilinogen Normal (Normal)
[2022-08-15 04:50] LABS: Red Blood Cells-Urine 25-50 SEEN /hpf (0-5); White Blood Cells 0-5 SEEN /hpf (0-5)
[2022-08-15 04:55] LABS: Anion Gap 12 (5-15); BUN 56 mg/dL (7-18); BUN/Creat Ratio 7.5 RATIO (10-20); Calcium,Total 8.9 mg/dL (8.5-10.1); Chloride 85 mmol/L (98-107); EST Glomerular Filtration Rate 8 mL/min (>60); Est Glom Filt Rate - Afr Amer 9 mL/min (>60); Estimated Creatinine Clearance 11.11 ml/min; Glucose 105 mg/dL (74-106); Magnesium 4.3 mg/dL (1.6-2.6); Potassium 4.8 mmol/L (3.5-5.1); Sodium Level 123 mmol/L (136-145)
--- NOTE | 2022-08-15 05:23 | ED.RN ---
Clamped Swift tubing. Pt educated on reasoning.
--- NOTE | 2022-08-15 05:46 | PCM.HP.STD ---
HPI - General General Date of Admission: 08/15/22 Date of Service: 08/15/22 Chief Complaint: Lower abdominal pain HPI Narrative FLORENCE CHOUDHARY, is a 67 M with a significant history of prostate cancer on active surveillance; and who had a left hip replacement 9 days before presentation complaining of lower abdominal pain that started about 2 to 3 days prior to presentation. He described the pain as dull. The pain is episodic. He rated pain as 7 on a scale of 1-10. The pain is nonradiating. He denies any aggravating or ameliorating factors to the pain. Associated with his symptoms is nausea. He denies constipation. At the emergency department patient was found to have urinary obstruction. Grijalva catheter was placed and almost 3 L of urine was obtained. The grijalva catheter was subsequently clamped off. Later he had another urinary output of 1450 ml while at emergency department Of note has tapered himself off oxycodone post hip surgery. He now takes only Tylenol and meloxicam. Also he takes baby aspirin twice daily prophylaxis for blood clots. [facility] Medical History Elevated PSA Encounter for preventative adult health care examination Fracture of left hip Gout History of asthma Kidney stones Osteoarthritis Preoperative clearance Rosacea Home Medications potassium citrate 15 mEq (1,620 mg) tablet,extended release 15 meq PO BID 01/31/20 [History Last Taken Unknown] allopurinol 300 mg tablet See Rx Instructions .Route .COMPLEX #90 tabs 02/06/22 [Rx Last Taken Unknown] meloxicam 15 mg tablet 7.5 - 15 mg PO DAILY PRN osteoarthritis pain #30 tabs 02/06/22 [Rx Last Taken Unknown] acetaminophen 325 mg capsule (Tylenol) 325 mg PO ONCE PRN Pain 07/21/22 [History Last Taken Unknown] cholecalciferol (vitamin D3) 25 mcg (1,000 unit) capsule 25 mcg PO DAILY 07/21/22 [History Last Taken Unknown] famotidine 20 mg tablet 20 mg PO DAILY 08/15/22 [History Last Taken Unknown] Allergy/AdvReac Type Severity Reaction Status Date / Time No Known Allergies Allergy Verified 07/21/22 08:05 Family History Mother Hypertension Surgical History History of tonsillectomy History of vasectomy Social History Smoking Status: Never smoker alcohol intake: never substance use type: does not use what type of physical activity do you participate in: other details: basketball frequency: 3-4 times per week ROS ROS Narrative Pertinent positives and pertinent negatives as noted in HPI. All other systems were reviewed and are negative Vital Signs Vital Signs Vital Signs: 08/15/22 03:53 Temperature 96.4 F L Temperature Source Temporal Pulse Rate 93 Respiratory Rate 18 Blood Pressure 192/98 H Blood Pressure Mean 129 Pulse Ox 100 Oxygen Delivery Method Room Air Weight Weight: 92.1 kg Body Mass Index (BMI) 25.3 Physical Exam Narrative Physical exam: General: Well-nourished, well-developed. Head: Normocephalic, atraumatic, no tenderness Eyes: Vision is grossly intact. EOMI ENT, no trauma, moist mucous membranes, no rhinorrhea Neck: Nontender, full range of motion, no spinal tenderness, deformities, step-off CVS: Regular rate and rhythm. S1-S2 present. No murmur, gallop or rub. Respiratory : clear to auscultation bilaterally, chest wall nontender, no wheezing Abdomen: Soft, nontender, nondistended, normal bowel sounds, no masses : Grijalva catheter in place Back: Nontender, no CVA tenderness, no midline spinal tenderness Extremities: No edema, Skin: Normal color, no trauma, abrasions Neuro: Alert, oriented, cranial nerves II through XII grossly intact. Psychiatry: Normal mood. Normal affect. Not depressed. Not anxious. Results Lab / Micro Data Result Diagrams: 08/15/22 04:05 08/15/22 04:05 Labs: Laboratory Results - last 24 hr 08/15/22 04:05: WBC 12.4 H, RBC 3.64 L, Hgb 12.2 L, Hct 35.4 L, MCV 97.3 H, MCH 33.5 H, MCHC 34.5, RDW Std Deviation 42.4, RDW Coeff of Duncan 11.9, Plt Count 399, MPV 8.5, Immature Gran % (Auto) 0.800, Neut % (Auto) 65.1, Lymph % (Auto) 23.4, [place] % (Auto) 8.5, Eos % (Auto) 1.8, Baso % (Auto) 0.4, Absolute Neuts (auto) 8.1 H, Absolute Lymphs (auto) 2.90, Nucleated RBC % 0 08/15/22 04:05: Sodium 123 L, Potassium 4.8, Chloride 85 L, Carbon Dioxide 26.0, Anion Gap 12, BUN 56 H, Creatinine 7.50 H*, Estim Creat Clear Calc 11.11, Est GFR (MDRD) Af Amer 9 L, Est GFR (MDRD) Non-Af 8 L, BUN/Creatinine Ratio 7.5 L, Glucose 105, Calcium 8.9, Magnesium 4.3 H 08/15/22 04:25: Urine Color Straw, Urine Clarity Clear, Urine pH 7.0, Ur Specific [place] 1.005, Urine Protein 15 H, Urine Glucose (UA) Normal, Urine Ketones 5 H, Urine Occult Blood 250 H, Urine Nitrite Negative, Urine Bilirubin Negative, Urine Urobilinogen Normal, Ur Leukocyte Esterase 25 H, Urine RBC 25-50 SEEN, Urine WBC 0-5 SEEN, Ur Squamous Epith Cells 0 SEEN, Urine Bacteria 0 SEEN, Urine Mucus 0 SEEN Assessment & Plan Assessment/Plan (1) Acute urinary retention: (2) Acute hyponatremia: (3) Leukocytosis: (4) Acute kidney injury: PLAN: Plan Acute urinary retention Continue Grijalva catheter placed at the emergency department. Flomax ordered. Urology consult MINA Creatinine presentation was 7.50. Review of record shows baseline creatinine of less than 1. Likely secondary to obstruction. Treatment as above. Trend BMP. Avoid nephrotoxins. Home meloxicam discontinued. Allopurinol dose for gout de-escalated. Acute hyponatremia Sodium level of 123 on presentation; chloride of 85. Review of previous records shows normal sodium, and pretty much normal chloride in the past. Check urine osmolarity Check urine sodium Check serum osmolality Gentle IV hydration ordered. Trend BMP. Leukocytosis CBC showed white count of 12.4, likely reactive. Trend. Hypertensive urgency Systolic blood pressure on presentation was more than 180. He denies any history of hypertension.. Hydralazine IV ordered. Trend blood pressure. DVT prophylaxis: JIMMIE jeannie continued. Subcutaneous heparin ordered. Charges/Coding Visit Charges Inpatient E&M: 12193 Init Hosp L3
[2022-08-15] MEDS: 0.9% Normal Saline 1,000 ML 999 ML IV (05:57)
[2022-08-15 06:07] LABS: Urine Sodium 73 mmol/L (Not Establ.)
--- NOTE | 2022-08-15 06:26 | ED.RN ---
Swift tubing unclamped.
[2022-08-15 06:29] LABS: Osmolality, Urine 228 mOsm/KG
[2022-08-15 06:29] LABS: Osmolality, Serum 278 mOsm/KG (280-301)
[2022-08-15] MEDS: 0.9% Normal Saline 1,000 ML 100 ML IV ×2 (07:56→17:39)
[2022-08-15] MEDS: Tamsulosin HCl 0.4 MG Capsule PO ×2 (08:00→21:13)
[2022-08-15] MEDS: Famotidine 20 MG Tablet PO (08:01)
[2022-08-15] MEDS: Cholecalciferol (VIT D3) 25 MCG TABLET (1,000 UNITS) PO (08:01)
[2022-08-15] MEDS: Allopurinol 100 MG Tablet 200 MG PO (08:01)
--- NOTE | 2022-08-15 08:43 | CASEMGMT ---
RALPH HANEY Assessment: Face to Face with pt for initial transition planning/care coordination assessment. RALPH HANEY introduced self and role at [facility], pt voices understanding and consents to assessment. Pt is A/O x4 and answers all questions appropriately at this time. Pt sitting up in bed in no distress. Care providers, pharmacy, and demographics verified/updated. Admitting Dx: MINA, hyponatremia PCP:Priya Specialists:donaldo Patterson; mellissa Noonan Preferred Pharmacy: [facility]: yes LW/HPOA: Pt states he has a LW/DPOA and his DPOA is his Agnes Hernandez. He is aware this is not on file at [facility] and he may bring in to be scanned into his chart. LNOK: Agnes Hernandez, Living Arrangements: Pt lives with in a two story house with 4 steps to enter with a rail. Pt reports being I in ADL's and denies concerns at home. Transportation: Pt is transporting pt to medical appts. Pt typically drives self but has not been cleared to do so post surgery yet. DME/HHC/SNF: Typically pt does not use AD. He is using a cane and FWW d/t surgery. Pt denies hx of HHC or SNF stays. Pt states no concerns with going home at time of dc. He is completing outpt therapy at [facility]. He had his L hip replaced 9 days ago. Pt states no further concerns/needs. CM to follow. Advised pt to ask CM if any further question/concerns/needs arise, voices understanding. Pt Goal: Home and continue outpt therapy Plan: Home and continue outpt therapy
[2022-08-15 11:08] LABS: Anion Gap 9 (5-15); BUN 38 mg/dL (7-18); BUN/Creat Ratio 9.4 RATIO (10-20); Calcium,Total 8.7 mg/dL (8.5-10.1); Chloride 96 mmol/L (98-107); Creatinine, Serum 4.04 mg/dL (0.70-1.30); EST Glomerular Filtration Rate 16 mL/min (>60); Est Glom Filt Rate - Afr Amer 19 mL/min (>60); Estimated Creatinine Clearance 21.16 ml/min; Glucose 136 mg/dL (74-106); Potassium 4.7 mmol/L (3.5-5.1); Sodium Level 133 mmol/L (136-145)
--- NOTE | 2022-08-15 12:19 | PCM.PN.BLA ---
Progress Note Patient was seen and examined. He was admitted this morning with lower abdominal pain and found to be in acute urinary retention. Swift catheter was placed and 2 L of urine was obtained. Vitals reviewed, stable Labs reviewed, repeat creatinine is 4.04 Patient is Swift catheter has hematuria on and off Urology consulted Continue to monitor on IV fluids DC heparin subcu; start SCDs Increase Flomax to 0.4 mg twice daily
--- NOTE | 2022-08-15 13:58 | CASEMGMT ---
Social Work Pt had indicated to CM that he has LW/POA, is aware not on file. Pt indicated to CM that is his POA. HODAN Merino
[2022-08-15 17:34] LABS: Anion Gap 8 (5-15); BUN 33 mg/dL (7-18); Calcium,Total 8.6 mg/dL (8.5-10.1); Chloride 98 mmol/L (98-107); Creatinine, Serum 2.53 mg/dL (0.70-1.30); EST Glomerular Filtration Rate 27 mL/min (>60); Est Glom Filt Rate - Afr Amer 33 mL/min (>60); Estimated Creatinine Clearance 33.79 ml/min; Glucose 117 mg/dL (74-106); Potassium 4.9 mmol/L (3.5-5.1); Sodium Level 135 mmol/L (136-145)
--- NOTE | 2022-08-15 19:43 | PCM.PN.BLA ---
Progress Note Serum sodium corrected for more than 10 mEq in less than 24 hours. De-escalate rate of IV fluids from 100 ml/hr to 50ml per hour.
[2022-08-15 23:07] LABS: Anion Gap 8 (5-15); BUN 28 mg/dL (7-18); BUN/Creat Ratio 15.2 RATIO (10-20); Calcium,Total 8.2 mg/dL (8.5-10.1); Chloride 103 mmol/L (98-107); Creatinine, Serum 1.84 mg/dL (0.70-1.30); EST Glomerular Filtration Rate 39 mL/min (>60); Est Glom Filt Rate - Afr Amer 47 mL/min (>60); Estimated Creatinine Clearance 46.47 ml/min; Glucose 135 mg/dL (74-106); Potassium 4.5 mmol/L (3.5-5.1); Sodium Level 138 mmol/L (136-145)
[2022-08-16] VITALS (13 sets, daily range): BP systolic 144–154; BP diastolic 70–86; PULSE 71–97; RESP 16–20; TEMP 36.2–37.1; O2SAT 97–99
[2022-08-16 06:07] LABS: Absolute Lymphocyte Count 2.15 X10^3/uL (0.83-4.51); Absolute Neutrophil Count 6.2 X10^3/uL (2.0-7.7); Basophil# 0.04 X10^3/uL; Basophil% 0.4 % (0-1); Eosinophil# 0.09 X10^3/uL; Eosinophils% 0.9 % (0-5); Hematocrit 32.3 % (40-54); Hemoglobin 10.6 g/dL (13.0-16.5); Lymphocyte # 2.15 X10^3/ul (0.83-4.51); Lymphocyte % 22.6 % (19-41); Mean Corp Hgb Conc 32.8 g/dL (32-36); Mean Corpuscular Hgb 33.1 pg (27.0-32.0); Mean Corpuscular Volume 100.9 fL (80-94); Mean Platelet Vol. 8.6 fl (6.2-12.0); Monocyte# 0.91 X10^3/uL; Monocyte% 9.6 % (0-10); NRBC Flagged by Analyzer 0 % (0-5); Neutrophil # 6.23 X10^3/uL (2.7-7.7); Neutrophil % 65.6 % (47-70); Platelet Count 362 K/mm3 (150-450); RBC Distribution Width CV 12.1 % (11.6-14.6); RBC Distribution Width SD 45.1 fl (35.1-43.9); White Blood Count 9.5 K/mm3 (4.4-11.0)
[2022-08-16 06:59] LABS: Anion Gap 7 (5-15); BUN 21 mg/dL (7-18); BUN/Creat Ratio 16.8 RATIO (10-20); Calcium,Total 8.5 mg/dL (8.5-10.1); Chloride 104 mmol/L (98-107); Creatinine, Serum 1.25 mg/dL (0.70-1.30); EST Glomerular Filtration Rate 61 mL/min (>60); Est Glom Filt Rate - Afr Amer 74 mL/min (>60); Glucose 109 mg/dL (74-106); Potassium 4.4 mmol/L (3.5-5.1); Sodium Level 137 mmol/L (136-145); Thyroid Stim Hormone (TSH) 1.84 uIU/mL (0.358-3.74)
--- NOTE | 2022-08-16 08:03 | PCM.PN.HOSP ---
Subjective Subjective Follow-up on acute urinary retention/MINA/Hyponatremia: Patient seen and examined. He feels well. Denies any SOB or chest pain. Objective Data Objective Data Vital Signs: Vital Signs Temp Pulse Resp BP Pulse Ox O2 Del Method 97.8 F 82 16 144/77 H 99 Room Air 08/16/22 05:50 08/16/22 07:19 08/16/22 05:50 08/16/22 05:50 08/16/22 05:50 08/16/22 05:50 Oxygen Delivery Method Room Air Weight: 86.7 kg Body Mass Index (BMI) 23.2 Intake & Output: Intake and Output for Last 24 Hours 08/14/22 08/15/22 08/16/22 23:59 23:59 23:59 Intake Total 2826.67 / 3026.67 200 / 200 Output Total 5775 / 6425 2790 / 2790 Balance -2948.33 / -3398.33 -2590 / -2590 Lab / Micro Data Result Diagrams: 08/16/22 05:23 08/16/22 05:23 Labs: Laboratory Results - last 24 hr 08/15/22 10:35: Sodium 133 L, Potassium 4.7, Chloride 96 L, Carbon Dioxide 28.0, Anion Gap 9, BUN 38 H, Creatinine 4.04 H, Estim Creat Clear Calc 21.16, Est GFR (MDRD) Af Amer 19 L, Est GFR (MDRD) Non-Af 16 L, BUN/Creatinine Ratio 9.4 L, Glucose 136 H, Calcium 8.7 08/15/22 16:25: Sodium 135 L, Potassium 4.9, Chloride 98, Carbon Dioxide 29.0, Anion Gap 8, BUN 33 H, Creatinine 2.53 H, Estim Creat Clear Calc 33.79, Est GFR (MDRD) Af Amer 33 L, Est GFR (MDRD) Non-Af 27 L, BUN/Creatinine Ratio 13.0, Glucose 117 H, Calcium 8.6 08/15/22 22:21: Sodium 138, Potassium 4.5, Chloride 103, Carbon Dioxide 27.0, Anion Gap 8, BUN 28 H, Creatinine 1.84 H, Estim Creat Clear Calc 46.47, Est GFR (MDRD) Af Amer 47 L, Est GFR (MDRD) Non-Af 39 L, BUN/Creatinine Ratio 15.2, Glucose 135 H, Calcium 8.2 L 08/16/22 05:23: WBC 9.5, RBC 3.20 L, Hgb 10.6 L, Hct 32.3 L, MCV 100.9 H, MCH 33.1 H, MCHC 32.8, RDW Std Deviation 45.1 H, RDW Coeff of Duncan 12.1, Plt Count 362, MPV 8.6, Immature Gran % (Auto) 0.900, Neut % (Auto) 65.6, Lymph % (Auto) 22.6, [place] % (Auto) 9.6, Eos % (Auto) 0.9, Baso % (Auto) 0.4, Absolute Neuts (auto) 6.2, Absolute Lymphs (auto) 2.15, Nucleated RBC % 0 08/16/22 05:23: Sodium 137, Potassium 4.4, Chloride 104, Carbon Dioxide 26.0, Anion Gap 7, BUN 21 H, Creatinine 1.25, Estim Creat Clear Calc 68.40, Est GFR (MDRD) Af Amer 74, Est GFR (MDRD) Non-Af 61, BUN/Creatinine Ratio 16.8, Glucose 109 H, Calcium 8.5, TSH 1.84 Physical Exam Narrative Physical exam: General: Alert, Oriented x3, Cooperative, No apparent distress HEENT: Atraumatic Oral: Moist Mucosa Neck: Supple Lungs: Clear to auscultation Cardiovascular: HS I+II, regular, no murmurs Abdomen: Bowel Sounds Present, Soft, Non Tender Extremities: No edema Skin: No rashes, No breakdown Neurological: Grossly intact Psych/Mental Status: Appropriate Assessment & Plan Assessment/Plan (1) Acute urinary retention: (2) Acute hyponatremia: (3) Leukocytosis: (4) Acute kidney injury: PLAN: Plan 1. Acute urinary retention in a patient with history of prostate CA Status post grijalva catheter placement Urology consulted; outpatient follow-up recommended 2. Acute kidney injury, postrenal, improving after Grijalva catheter placement Patient admitted with creatinine of 7.5; now 1.25 Continue gentle IV fluids 3. Acute hypotonic hyponatremia likely secondary to dehydration, resolved Patient admitted with Na 123; now 137 Will trend BMP 4. Leukocytosis, likely reactive, resolved WBC is 9.5 from 12.4 5. Hypertensive urgency, resolved, BP is better Will continue to monitor 6. DVT PPx- SCDs - as patient had recent hematuria Charges/Coding Visit Charges Inpatient E&M: 81104 Subs Hosp L2
--- NOTE | 2022-08-16 08:42 | CON.PCM.UR_ITS ---
HPI Consult Data Date of Consult: 08/16/22 HPI Narrative Reason for Consultation: Urinary retention HPI Narrative: FLORENCE CHOUDHARY, is a 67 M had hip arthroscopy surgery about a week ago then developed urinary retention. He has a history of low-grade prostate cancer on active surveillance, has an 80 g prostate from a biopsy that we did. He came into the hospital with retention of urine elevated creatinine Swift catheter was placed since then the creatinine is now normalizing he has good urine output. He can go home with Flomax which has been prescribed, he needs to call my office for an appointment in 1 week for a voiding trial to remove the catheter. Call with questions [facility] Medical History Elevated PSA Encounter for preventative adult health care examination Fracture of left hip Gout History of asthma Kidney stones Osteoarthritis Preoperative clearance Rosacea Home Medications potassium citrate 15 mEq (1,620 mg) tablet,extended release 15 meq PO BID 01/31/20 [History Last Taken Unknown] allopurinol 300 mg tablet See Rx Instructions .Route .COMPLEX #90 tabs 02/06/22 [Rx Last Taken Unknown] meloxicam 15 mg tablet 7.5 - 15 mg PO DAILY PRN osteoarthritis pain #30 tabs 02/06/22 [Rx Last Taken Unknown] acetaminophen 325 mg capsule (Tylenol) 325 mg PO ONCE PRN Pain 07/21/22 [History Last Taken Unknown] cholecalciferol (vitamin D3) 25 mcg (1,000 unit) capsule 25 mcg PO DAILY 07/21/22 [History Last Taken Unknown] famotidine 20 mg tablet 20 mg PO DAILY 08/15/22 [History Last Taken Unknown] Allergy/AdvReac Type Severity Reaction Status Date / Time No Known Allergies Allergy Verified 07/21/22 08:05 Family History Mother Hypertension Surgical History History of tonsillectomy History of vasectomy Social History Smoking Status: Never smoker alcohol intake: never substance use type: does not use what type of physical activity do you participate in: other details: basketball frequency: 3-4 times per week Lab / Micro Data Result Diagrams: 08/16/22 05:23 08/16/22 05:23 Labs: Laboratory Results - last 24 hr 08/15/22 10:35: Sodium 133 L, Potassium 4.7, Chloride 96 L, Carbon Dioxide 28.0, Anion Gap 9, BUN 38 H, Creatinine 4.04 H, Estim Creat Clear Calc 21.16, Est GFR (MDRD) Af Amer 19 L, Est GFR (MDRD) Non-Af 16 L, BUN/Creatinine Ratio 9.4 L, Glucose 136 H, Calcium 8.7 08/15/22 16:25: Sodium 135 L, Potassium 4.9, Chloride 98, Carbon Dioxide 29.0, Anion Gap 8, BUN 33 H, Creatinine 2.53 H, Estim Creat Clear Calc 33.79, Est GFR (MDRD) Af Amer 33 L, Est GFR (MDRD) Non-Af 27 L, BUN/Creatinine Ratio 13.0, Glucose 117 H, Calcium 8.6 08/15/22 22:21: Sodium 138, Potassium 4.5, Chloride 103, Carbon Dioxide 27.0, Anion Gap 8, BUN 28 H, Creatinine 1.84 H, Estim Creat Clear Calc 46.47, Est GFR (MDRD) Af Amer 47 L, Est GFR (MDRD) Non-Af 39 L, BUN/Creatinine Ratio 15.2, Glucose 135 H, Calcium 8.2 L 08/16/22 05:23: WBC 9.5, RBC 3.20 L, Hgb 10.6 L, Hct 32.3 L, MCV 100.9 H, MCH 33.1 H, MCHC 32.8, RDW Std Deviation 45.1 H, RDW Coeff of Duncan 12.1, Plt Count 362, MPV 8.6, Immature Gran % (Auto) 0.900, Neut % (Auto) 65.6, Lymph % (Auto) 22.6, [place] % (Auto) 9.6, Eos % (Auto) 0.9, Baso % (Auto) 0.4, Absolute Neuts (auto) 6.2, Absolute Lymphs (auto) 2.15, Nucleated RBC % 0 08/16/22 05:23: Sodium 137, Potassium 4.4, Chloride 104, Carbon Dioxide 26.0, Anion Gap 7, BUN 21 H, Creatinine 1.25, Estim Creat Clear Calc 68.40, Est GFR (MDRD) Af Amer 74, Est GFR (MDRD) Non-Af 61, BUN/Creatinine Ratio 16.8, Glucose 109 H, Calcium 8.5, TSH 1.84
--- NOTE | 2022-08-16 08:45 | PCM.DC ---
Discharge Instructions Dressing / Incision Catheter: Swift to leg bag and Swift to large bag Drain: [employer] Follow Up Care Please Follow Up With: Eitan Patterosn MD When: call for an appt in 1 week. Test Results: Test results from this visit will be discussed in further detail at your follow-up appointment, if applicable. Discharge Plan Admission Admit Date/Time: 08/15/22 05:26 Attending Provider: Fabiola Lerma Primary Care Provider: Gregg Powers Consulting Providers: Eitan Patterson ; Vinod Gallardo Discharge Orders/Prescriptions Prescriptions: New tamsulosin [Flomax] 0.4 mg capsule 0.4 mg PO QHS Qty: 90 3RF No Action potassium citrate 15 mEq tablet extended release 15 meq PO BID allopurinol 300 mg tablet See Rx Instructions .ROUTE .COMPLEX Qty: 90 3RF Dose Instruction: TAKE 1 TABLET BY MOUTH (300 MG) EVERY DAY Rx Instructions: TAKE 1 TABLET BY MOUTH (300 MG) EVERY DAY meloxicam 15 mg tablet 7.5 - 15 mg PO DAILY PRN (Reason: osteoarthritis pain) Qty: 30 1RF acetaminophen [Tylenol] 325 mg capsule 325 mg PO ONCE PRN (Reason: Pain) cholecalciferol (vitamin D3) 25 mcg (1,000 unit) capsule 25 mcg PO DAILY famotidine 20 mg tablet 20 mg PO DAILY Referrals / Follow Up: Gregg Powers MD [Primary Care Provider] - Eitan Patterson MD [Med Staff - Active Staff] -
[2022-08-16] MEDS: Allopurinol 100 MG Tablet 200 MG PO (08:56)
[2022-08-16] MEDS: Cholecalciferol (VIT D3) 25 MCG TABLET (1,000 UNITS) PO (08:56)
[2022-08-16] MEDS: Tamsulosin HCl 0.4 MG Capsule PO ×2 (08:56→20:33)
[2022-08-16] MEDS: Famotidine 20 MG Tablet PO (08:56)
[2022-08-16] MEDS: 0.9% Normal Saline 1,000 ML 50 ML IV (09:00)
[2022-08-17] VITALS (7 sets, daily range): BP systolic 143–159; BP diastolic 77–93; PULSE 79–98; RESP 16–18; TEMP 36.3–37; O2SAT 95–98
[2022-08-17] MEDS: 0.9% Normal Saline 1,000 ML 50 ML IV (05:08)
[2022-08-17 06:51] LABS: Anion Gap 8 (5-15); BUN 14 mg/dL (7-18); BUN/Creat Ratio 16.6 RATIO (10-20); Calcium,Total 8.7 mg/dL (8.5-10.1); Chloride 106 mmol/L (98-107); Creatinine, Serum 0.84 mg/dL (0.70-1.30); EST Glomerular Filtration Rate 96 mL/min (>60); Est Glom Filt Rate - Afr Amer 116 mL/min (>60); Estimated Creatinine Clearance 101.78 ml/min; Glucose 99 mg/dL (74-106); Sodium Level 138 mmol/L (136-145)
[2022-08-17] MEDS: Allopurinol 100 MG Tablet 200 MG PO (07:56)
--- NOTE | 2022-08-17 08:00 | PCM.DC ---
Discharge Instructions Diet Discharge Diet: No restrictions Dressing / Incision Call your doctor if you observe: Fever of 101 or Higher, Coldness, Increased Pain, Numbness or Tingling, Change in Color, Inability to urinate, Inability to have a bowel movement, Shortness of breath, Dizziness, Fainting spells, Swelling in the ankles, Chest pain, Prolonged hiccupping, Increased palpitations (irregular heartbeat), Calf discomfort and Uncontrolled pain Catheter: Swift to leg bag and Swift to large bag Drain: [place] Follow Up Care Please Follow Up With: Eitan Patterson MD Test Results: Test results from this visit will be discussed in further detail at your follow-up appointment, if applicable. Discharge Plan Admission Admit Date/Time: 08/15/22 05:26 Primary Reason for Your Visit: MINA, urine retention and hyponatremia Attending Provider: Meet Vanegas Primary Care Provider: Gregg Powers Consulting Providers: Eitan Patterson ; Vinod Gallardo ; Fabiola Lerma Instructions Additional Instructions / Restrictions: Patient is discharged with Swift catheter. Advised repeat BMP in 1 week and follow with PCP Discharge Orders/Prescriptions Prescriptions: New tamsulosin [Flomax] 0.4 mg capsule 0.4 mg PO QHS Qty: 90 3RF sennosides-docusate sodium [Stool Softener-Stimulant Laxat] 8.6-50 mg Tablet 2 tab PO BID PRN PRN (Reason: Constipation) Qty: 0 0RF Continued allopurinol 300 mg tablet See Rx Instructions .ROUTE .COMPLEX Qty: 90 3RF Dose Instruction: TAKE 1 TABLET BY MOUTH (300 MG) EVERY DAY Rx Instructions: TAKE 1 TABLET BY MOUTH (300 MG) EVERY DAY acetaminophen [Tylenol] 325 mg capsule 325 mg PO ONCE PRN (Reason: Pain) cholecalciferol (vitamin D3) 25 mcg (1,000 unit) capsule 25 mcg PO DAILY famotidine 20 mg tablet 20 mg PO DAILY Discontinued potassium citrate 15 mEq tablet extended release 15 meq PO BID meloxicam 15 mg tablet 7.5 - 15 mg PO DAILY PRN (Reason: osteoarthritis pain) Qty: 30 1RF Referrals / Follow Up: Gregg Powers MD [Primary Care Provider] - Within 1 Week Eitan Patterson MD [Med Staff - Active Staff] - Disposition Disposition (needs filled in before D/C Order can be placed): Home, Self Care
[2022-08-17] MEDS: Cholecalciferol (VIT D3) 25 MCG TABLET (1,000 UNITS) PO (09:01)
[2022-08-17] MEDS: Tamsulosin HCl 0.4 MG Capsule PO (09:01)
[2022-08-17] MEDS: Famotidine 20 MG Tablet PO (09:02)
--- NOTE | 2022-08-17 10:51 | PHA.DC.MC ---
Pharmacy Service has performed discharge medication reconciliation and counseling for this patient. The patient was counseled on the following discharge medications and changes in medications for homegoing were reviewed. 1. FLOMAX 2, SENNA/DOCUSATE The Reason for Use, instructions for use, and potential side effects were reviewed for all new medications. The patient's questions regarding all of their medications were answered. The patient was able to verbally demonstrate an understanding of their discharge medications. Home Medications allopurinol 300 mg tablet See Rx Instructions .Route .COMPLEX #90 tabs 02/06/22 acetaminophen 325 mg capsule (Tylenol) 325 mg PO ONCE PRN Pain 07/21/22 cholecalciferol (vitamin D3) 25 mcg (1,000 unit) capsule 25 mcg PO DAILY vitamin 07/21/22 famotidine 20 mg tablet 20 mg PO DAILY reflux 08/15/22 tamsulosin 0.4 mg capsule (Flomax) 0.4 mg PO QHS #90 caps 08/16/22 sennosides 8.6 mg-docusate sodium 50 mg tablet (Stool Softener-Stimulant Laxative) 2 tab PO BID PRN PRN Constipation #0 tabs 08/17/22 The patient's discharge medication list was reviewed for discrepancies and discrepancies were resolved.
--- NOTE | 2022-08-17 12:46 | DS.PCM_ITS ---
Providers Date of Admission: 08/15/22 Date of Discharge: 08/17/22 Primary Care Physician: Dr. Gregg Powers MD Consultations 08/15/22 06:55 Consult: Urology Routine Consulting Provider: Eitan Patterson Reason for Consult: urinary retention EMERGENT Consult: No MD Notified: Yes Date Notified: 08/15/22 Time Notified: 07:05 Method of Notification: Verbal Reason For Visit: MINA, HYPONATREMIA Diagnosis Discharge Diagnosis (1) Acute urinary retention: Status: Acute Code(s): R33.8 - Other retention of urine (2) Acute hyponatremia: Status: Acute Code(s): E87.1 - Hypo-osmolality and hyponatremia (3) Leukocytosis: Status: Acute Code(s): D72.829 - Elevated white blood cell count, unspecified (4) Acute kidney injury: Status: Acute Code(s): N17.9 - Acute kidney failure, unspecified Medications at Discharge Home Medications allopurinol 300 mg tablet See Rx Instructions .Route .COMPLEX #90 tabs 02/06/22 acetaminophen 325 mg capsule (Tylenol) 325 mg PO ONCE PRN Pain 07/21/22 cholecalciferol (vitamin D3) 25 mcg (1,000 unit) capsule 25 mcg PO DAILY vitamin 07/21/22 famotidine 20 mg tablet 20 mg PO DAILY reflux 08/15/22 tamsulosin 0.4 mg capsule (Flomax) 0.4 mg PO QHS #90 caps 08/16/22 sennosides 8.6 mg-docusate sodium 50 mg tablet (Stool Softener-Stimulant Laxative) 2 tab PO BID PRN PRN Constipation #0 tabs 08/17/22 Hospital Course Summary of Care Provided Hospital Course: The patient is 67-year-old question to be admitted with lower abdominal/suprapubic pain started 2 to 3 days prior to admission. Patient also had mild hematuria. Patient came to ED with urine retention and found to have hyponatremia and MINA. Patient had left hip replacement on 08/06/[address] Noonan. Patient has prostate cancer low-grade on active surveillance 1. Acute urinary retention in a patient with history of prostate CA Status post grijalva catheter placement. Urologist consulted. Started on Flomax. Outpatient follow-up in [address] Patterson. Patient is being discharged with Grijalva catheter and Flomax, prescription sent by Dr. Patterson. 2.? Acute kidney injury, postrenal, improved and resolved after Grijalva catheter placement Patient admitted with creatinine of 7.5; improved to 0.84. Patient was treated with IV fluid. MINA resolved. NSAID and potassium supplement discontinued. D iscussed with the patient and his about the medication 3. Acute hypotonic hyponatremia likely secondary to dehydration/urine retention, resolved Patient admitted with Na 123; improved to 138 4. Leukocytosis, likely reactive, resolved WBC is 9.5 from 12.4 5. Hypertensive urgency, resolved, BP is better Blood pressure elicitable limit. Continue antihypertensive medication 6. DVT PPx- SCDs - as patient had recent hematuria Discharge medication reconciliation done. Discharge follow-up instructions completed. Discharge process discussed with the patient and all questions were answered to patient and his satisfaction. Total time spent, exact 35 minutes on discharge meds reconciliation, examination, coordination of care with nurses and ancillary staff, review of imaging and blood test and discussion with the patient on follow-up instructions. Laboratory Results 08/16/22 05:23: Cortisol 18.20 08/17/22 05:58: Sodium 138, Potassium 4.0, Chloride 106, Carbon Dioxide 24.0, Anion Gap 8, BUN 14, Creatinine 0.84, Estim Creat Clear Calc 101.78, Est GFR (MDRD) Af Amer 116, Est GFR (MDRD) Non-Af 96, BUN/Creatinine Ratio 16.6, Glucose 99, Calcium 8.7 Physical Exam Narrative Seen and examined. Patient has Grijalva catheter draining clear urine. Had hematuria which resolved now. On Flomax. Denies dizziness chest pain or pressure tightness. General: Alert, Oriented x3, Cooperative HEENT: Atraumatic, PERRLA, EOMI, Normocephalic Oral: No Gingival or Mucosal Lesions/ Ulcerations Neck: Supple, No JVD, Negative Carotid Bruits Lungs: Air entry equal in bilateral lung bases. No crepitation/rhonchi Cardiovascular: Regular rate, Regular Rhythm, Normal S1, Normal S2, No murmurs Abdomen: Bowel Sounds Present, Soft, Non Tender, Non-Distended : Grijalva catheter draining clear urine. No renal angle tenderness. No suprapubic tenderness. Extremities: No edema, Capillary Refill Less than 3 Seconds Skin: No rashes, No breakdown Musculoskeletal: No Tenderness to Palpation of Joints or Extremities Neurological: Cranial nerves II-XII grossly intact, DTR 2+/4 and Symmetrical, Neuro grossly intact Psych/Mental Status: Normal Affect, Appropriate. Weight / BMI Weight Weight: 191 lb 2.252 oz Body Mass Index (BMI) 23.2 ABG / Lab / Microbiology Data Result Diagrams: 08/16/22 05:23 08/17/22 05:58 Laboratory: Laboratory Results - last 24 hr 08/17/22 05:58: Sodium 138, Potassium 4.0, Chloride 106, Carbon Dioxide 24.0, Anion Gap 8, BUN 14, Creatinine 0.84, Estim Creat Clear Calc 101.78, Est GFR (MDRD) Af Amer 116, Est GFR (MDRD) Non-Af 96, BUN/Creatinine Ratio 16.6, Glucose 99, Calcium 8.7 D/C Instructions Discharge Diet: No restrictions Call your doctor if you observe: Fever of 101 or Higher, Coldness, Increased Pain, Numbness or Tingling, Change in Color, Inability to urinate, Inability to have a bowel movement, Shortness of breath, Dizziness, Fainting spells, Swelling in the ankles, Chest pain, Prolonged hiccupping, Increased palpitations (irregular heartbeat), Calf discomfort and Uncontrolled pain Catheter: Grijalva to leg bag and Grijalva to large bag Drain: [place] Please Follow Up With: Eitan Patterson MD When: call for an appt in 1 week. Meaningful Use Info Meaningful Use Diagnoses (Choose all that apply): None applicable Discharge Plan Admission Admit Date/Time: 08/15/22 05:26 Primary Reason for Your Visit: MINA, urine retention and hyponatremia Attending Provider: Meet Vanegas Primary Care Provider: Gregg Powers Consulting Providers: Eitan Patterson ; Vinod Gallardo ; Fabiola Lerma Instructions Additional Instructions / Restrictions: Patient is discharged with Grijalva catheter. Advised repeat BMP in 1 week and follow with PCP Discharge Orders/Prescriptions Prescriptions: New tamsulosin [Flomax] 0.4 mg capsule 0.4 mg PO QHS Qty: 90 3RF sennosides-docusate sodium [Stool Softener-Stimulant Laxat] 8.6-50 mg Tablet 2 tab PO BID PRN PRN (Reason: Constipation) Qty: 0 0RF Continued allopurinol 300 mg tablet See Rx Instructions .ROUTE .COMPLEX Qty: 90 3RF Dose Instruction: TAKE 1 TABLET BY MOUTH (300 MG) EVERY DAY Rx Instructions: TAKE 1 TABLET BY MOUTH (300 MG) EVERY DAY acetaminophen [Tylenol] 325 mg capsule 325 mg PO ONCE PRN (Reason: Pain) cholecalciferol (vitamin D3) 25 mcg (1,000 unit) capsule 25 mcg PO DAILY famotidine 20 mg tablet 20 mg PO DAILY Discontinued potassium citrate 15 mEq tablet extended release 15 meq PO BID meloxicam 15 mg tablet 7.5 - 15 mg PO DAILY PRN (Reason: osteoarthritis pain) Qty: 30 1RF Referrals / Follow Up: Gregg Powers MD [Primary Care Provider] - Within 1 Week Eitan Patterson MD [Med Staff - Active Staff] - Disposition Disposition (needs filled in before D/C Order can be placed): Home, Self Care Charges/Coding Visit Charges Inpatient E&M: 72532 Disch Hosp
== END 2022-08-17 10:59 | disposition home or self-care (01) | DRG 683 ==
LOC: ED 06:00 → PCU 06:20
PROVIDERS: Admitting Provider Hospitalist; Emergency Provider Emergency Medicine; PCP Internal Medicine; Visit Provider Internal Medicine
DX: N17.9 Acute kidney failure, unspecified (principal); E87.1 Hypo-osmolality and hyponatremia; D72.829 Elevated white blood cell count, unspecified; I16.0 Hypertensive urgency; R33.9 Retention of urine, unspecified; Z79.1 Long term (current) use of non-steroidal anti-inflammatories (NSAID); Z85.46 Personal history of malignant neoplasm of prostate; R31.9 Hematuria, unspecified
CPT/HCPCS: 36415; 51702; 80048; 81001; 82533; 83735; 83930; 83935; 84300; 84443; 85025; 99285; J7030; A4216

== ENCOUNTER → 2022-08-19 | Outpatient (CLI) | payer MEDICARE, OTHER, SELFPAY ==
[2022-08-19 12:46] LABS: Absolute Lymphocyte Count 2.73 X10^3/uL (0.83-4.51); Absolute Neutrophil Count 10.1 X10^3/uL (2.0-7.7); Basophil% 0.7 % (0-1); Eosinophil# 0.24 X10^3/uL; Eosinophils% 1.7 % (0-5); Hematocrit 38.2 % (40-54); Hemoglobin 12.4 g/dL (13.0-16.5); Lymphocyte # 2.73 X10^3/ul (0.83-4.51); Lymphocyte % 19.3 % (19-41); Mean Corp Hgb Conc 32.5 g/dL (32-36); Mean Corpuscular Volume 104.7 fL (80-94); Mean Platelet Vol. 8.7 fl (6.2-12.0); Monocyte% 5.6 % (0-10); NRBC Flagged by Analyzer 0.1 % (0-5); Neutrophil # 10.11 X10^3/uL (2.7-7.7); Neutrophil % 71.4 % (47-70); Platelet Count 546 K/mm3 (150-450); RBC Distribution Width CV 12.1 % (11.6-14.6); Red Blood Count 3.65 M/mm3 (4.6-6.2); White Blood Count 14.2 K/mm3 (4.4-11.0)
[2022-08-19 12:58] LABS: Anion Gap 8 (5-15); BUN 15 mg/dL (7-18); BUN/Creat Ratio 16.5 RATIO (10-20); Calcium,Total 9.4 mg/dL (8.5-10.1); Chloride 103 mmol/L (98-107); Creatinine, Serum 0.91 mg/dL (0.70-1.30); EST Glomerular Filtration Rate 88 mL/min (>60); Est Glom Filt Rate - Afr Amer 106 mL/min (>60); Glucose 93 mg/dL (74-106); Potassium 4.7 mmol/L (3.5-5.1); Sodium Level 138 mmol/L (136-145)
[2022-08-19 15:12] LABS: Mucous, Urine 0 SEEN /hpf (<or=2+); Squamous Epithelial Cells - UA 0 SEEN /hpf (0-5)
[2022-08-19 16:45] LABS: Color, Urine Yellow (Yellow); Glucose, Dipstick Normal (Normal); Ketone-Dipstick Negative (Negative); Leukocyte Esterase-Dipstick 100 /ul (Negative); Nitrite-Dipstick Negative (Negative); Occult Blood-Urine 250 /ul (Negative); Protein-Dipstick 30 mg/dl (Negative); Specific Gravity, Urine 1.015 (1.002-1.030); Urine Bilirubin Dipstick Negative (Negative); Urine Urobilinogen Normal (Normal)
[2022-08-19 17:00] LABS: Urine Clarity Sl. Cloudy (Clear)
[2022-08-19 17:10] LABS: Bacteria RARE /hpf (None Seen); Red Blood Cells-Urine 0-5 SEEN /hpf (0-5); White Blood Cells 0-5 SEEN /hpf (0-5)
== END | disposition home or self-care (01) ==
LOC: BIMLAB 10:30
PROVIDERS: PCP Internal Medicine; Referring Provider Nurse Practitioner Family; Visit Provider Nurse Practitioner Family
DX: N17.9 Acute kidney failure, unspecified (principal); R33.8 Other retention of urine; E87.1 Hypo-osmolality and hyponatremia
CPT/HCPCS: 36415; 80048; 81001; 85025; 87077; 87086; 87088; 87186

== ENCOUNTER → 2022-09-02 | Outpatient (CLI) | payer MEDICARE, OTHER, SELFPAY ==
[2022-09-02 12:32] LABS: Absolute Lymphocyte Count 1.88 X10^3/uL (0.83-4.51); Absolute Neutrophil Count 6.8 X10^3/uL (2.0-7.7); Basophil# 0.02 X10^3/uL; Basophil% 0.2 % (0-1); Eosinophil# 0.18 X10^3/uL; Eosinophils% 1.9 % (0-5); Hematocrit 39.5 % (40-54); Hemoglobin 12.6 g/dL (13.0-16.5); Lymphocyte # 1.88 X10^3/ul (0.83-4.51); Lymphocyte % 19.9 % (19-41); Mean Corp Hgb Conc 31.9 g/dL (32-36); Mean Corpuscular Volume 103.4 fL (80-94); Mean Platelet Vol. 8.9 fl (6.2-12.0); Monocyte# 0.56 X10^3/uL; Monocyte% 5.9 % (0-10); NRBC Flagged by Analyzer 0 % (0-5); Neutrophil # 6.76 X10^3/uL (2.7-7.7); Neutrophil % 71.6 % (47-70); Platelet Count 353 K/mm3 (150-450); RBC Distribution Width CV 12.6 % (11.6-14.6); RBC Distribution Width SD 47.2 fl (35.1-43.9); Red Blood Count 3.82 M/mm3 (4.6-6.2); White Blood Count 9.5 K/mm3 (4.4-11.0)
[2022-09-02 12:53] LABS: Vitamin B12 301 pg/mL (211-911)
[2022-09-02 13:06] LABS: Anion Gap 5 (5-15); BUN 12 mg/dL (7-18); BUN/Creat Ratio 13.5 RATIO (10-20); Calcium,Total 9.5 mg/dL (8.5-10.1); Chloride 107 mmol/L (98-107); Creatinine, Serum 0.89 mg/dL (0.70-1.30); EST Glomerular Filtration Rate 90 mL/min (>60); Est Glom Filt Rate - Afr Amer 109 mL/min (>60); Glucose 93 mg/dL (74-106); Potassium 4.4 mmol/L (3.5-5.1); Sodium Level 141 mmol/L (136-145)
== END | disposition home or self-care (01) ==
LOC: BIMLAB 09:09
PROVIDERS: PCP Internal Medicine; Referring Provider Nurse Practitioner Family; Visit Provider Nurse Practitioner Family
DX: M10.9 Gout, unspecified (principal); N17.9 Acute kidney failure, unspecified; R33.8 Other retention of urine; E87.1 Hypo-osmolality and hyponatremia
CPT/HCPCS: 36415; 80048; 82607; 82746; 85025

== ENCOUNTER 2022-09-25 13:53 | Observation (INO) | payer MEDICARE, OTHER, SELFPAY ==
[2022-09-25] VITALS (11 sets, daily range): BP systolic 131–156; BP diastolic 62–88; PULSE 78–90; RESP 14–17; TEMP 36.4–38.1; O2SAT 94–98; BMI 22.3
--- NOTE | 2022-09-25 | PROS_PTH ---
PATIENT: FLORENCE CHOUDHARY LOC: [facility] U#:[id number] AGE/SX: 67/M ROOM: MA312 RE09/25/[address]: Dr. Eitan Patterson MD : [id number] BED: 1 DIS: 09/26/2022 SPEC #: [id number] RECD: 09/28/22 07:02 STATUS: PRIYANKA SALINAS #: [id number] ABRIL: 09/25/22 00:[address]: Eitan Patterson DEPT: SURGICAL PATHOLOGY RECD BY: [place] ENTERED: 09/28/22 07:24 SP TYPE: TURP OTHR DR: Dr. Gregg Powers MD Tissues: Prostate, NOS Procedures: Surgery Specimen Level IV HEADER OPERATION: Cystoscopy, transurethral resection of prostate PRE-OP DIAGNOSIS: Benign prostatic hypoplasia, urinary retention TISSUE SUBMITTED: Prostate tissue MICROSCOPIC DIAGNOSIS Prostate, transurethral resection: Benign nodular hyperplasia, glandular and stromal types. Chronic inflammation. AM:kaur 09/29/2022 MICROSCOPIC DESCRIPTION Slides are reviewed. GROSS DESCRIPTION Received is one container labeled with the patient's name and designated prostate tissue. The specimen consists of multiple irregular fragments of pink-sanabria, rubbery, soft tissue that in aggregate weigh 16.9 gm and measure in aggregate 6.5 x 6 x 1 cm. Transition Mgr Rn portions are submitted in ten cassettes. / AM:kaur 09/28/2022 TC:3 CPT: 43965
[2022-09-25] MEDS: Lactated Ringers 1,000 ML 15 ML IV (12:25)
--- NOTE | 2022-09-25 13:55 | HP.PCM_ITS ---
[facility] - General General Date of Service: 09/25/22 Chief Complaint: BPH with obstruction and retention of urine HPI Narrative FLORENCE CHOUDHARY, is a 67 M who presents to the hospital for a transurethral section of the prostate he has a BPH and large prostate retention of urine has not been able to urinate. We will plan to proceed for surgery and recently also had a hip surgery [facility] Medical History Arthritis Asthma Cancer Elevated PSA Encounter for preventative adult health care examination Swift catheter in place Fracture of left hip Gout History of asthma History of rheumatic fever Injury of head and neck Kidney stones Kidney stones Osteoarthritis Preoperative clearance Rosacea Wears glasses Home Medications acetaminophen 325 mg capsule (Tylenol) 325 mg PO ONCE PRN Pain 07/21/22 [History Last Taken 09/24/22] cholecalciferol (vitamin D3) 25 mcg (1,000 unit) capsule 25 mcg PO DAILY vitamin 07/21/22 [History Last Taken 09/24/22] tamsulosin 0.4 mg capsule (Flomax) 0.4 mg PO QHS #90 caps 08/16/22 [Rx Last Taken 09/24/22] allopurinol 300 mg tablet 300 mg PO DAILY 09/18/22 [History Last Taken 09/24/22] vitamin B complex 1 tab PO DAILY 09/18/22 [History Last Taken 09/24/22] ciprofloxacin HCl 500 mg tablet (Cipro) 500 mg PO BID #14 tabs 09/25/22 [Rx Last Taken Unknown] Allergy/AdvReac Type Severity Reaction Status Date / Time No Known Allergies Allergy Verified 09/25/22 12:39 Family History Mother Hypertension Surgical History History of tonsillectomy History of vasectomy Hx of total hip arthroplasty Social History Smoking Status: Never smoker alcohol intake: never substance use type: does not use what type of physical activity do you participate in: other details: basketball frequency: 3-4 times per week Vital Signs Vital Signs Vital Signs: 09/25/22 12:40 09/25/22 12:40 Temperature 99.6 F H Temperature Source Temporal Pulse Rate 80 Respiratory Rate 17 Respiratory Pattern Normal Blood Pressure 147/88 H Blood Pressure Mean 107 Blood Pressure Source Monitor Blood Pressure Position Semi-Fowlers Blood Pressure Location Left Arm Pulse Ox 96 Oxygen Delivery Method Room Air Weight Weight: 83.2 kg Body Mass Index (BMI) 22.3
--- NOTE | 2022-09-25 13:56 | DCINST_ITS ---
Discharge Instructions Diet Discharge Diet: No restrictions, Light diet - advance as tolerated and Soft diet Activity Discharge Activity: Return to Normal Activity Dressing / Incision Call your doctor if your incision/area has: Sudden Increased Bleeding Follow Up Care Please Follow Up With: Eitan Patterson MD When: Call the office for an appointment in 2 weeks Test Results: Test results from this visit will be discussed in further detail at your follow- up appointment, if applicable. Discharge Plan Admission Primary Reason for Your Visit: TURP Attending Provider: Eitan Patterson Primary Care Provider: Gregg Powers Instructions Patient Instructions: TURP Home Recovery Discharge Orders/Prescriptions Prescriptions: New ciprofloxacin HCl [Cipro] 500 mg tablet 500 mg PO BID Qty: 14 0RF Continued acetaminophen [Tylenol] 325 mg capsule 325 mg PO ONCE PRN (Reason: Pain) cholecalciferol (vitamin D3) 25 mcg (1,000 unit) capsule 25 mcg PO DAILY tamsulosin [Flomax] 0.4 mg capsule 0.4 mg PO QHS Qty: 90 3RF vitamin B complex Tablet 1 tab PO DAILY allopurinol 300 mg tablet 300 mg PO DAILY Referrals / Follow Up: Gregg Powers MD [Primary Care Provider] - Eitan Patterson MD [Med Staff - Active Staff] - Disposition Disposition (needs filled in before D/C Order can be placed): Home, Self Care
[2022-09-25] MEDS: Cefazolin 2 GM in 0.9% Normal Saline 100 ML IV (14:09)
--- NOTE | 2022-09-25 15:09 | OP.PCM_ITS ---
Report of Operation Date of Procedure: 09/25/22 Pre-Operative Diagnosis: BPH with obstruction Post-Operative Diagnosis: The same Surgery/Procedure Performed:: Transurethral section prostate Description of Surgical Findings:: In the preoperative setting I discussed with the patient how the surgery would be done with expect afterwards. We discussed how a prostate resection is done and we discussed the risk of the surgery including, bleeding, infection, retrograde ejaculation, changes with ejaculation or intercourse,. We discussed the possibility that the resection of the prostate may not alleviate his urinary symptoms. We discussed the small risk of developing scar tissue along the urethral channel and strictures. We also discussed the chance of the prostate could grow back and he may need further surgery or treatment in the future for prostate problems. Patient was taken back to the operating room, timeout procedure was performed, he was identified and marked and placed on the operating room table. He underwent general anesthesia. He was placed in dorsolithotomy position. Penis and testicles were prepped and draped in usual sterile fashion. Went into the bladder using the visual obturator with a resectoscope. Once inside the bladder identified the right and left ureteral orifice. I then identified the prostate and the anatomy of the prostate. I marked out the area of the sphincter and the verumontanum was identified. I then proceeded with the prostate resection first resected the median lobe. And then resected the right lobe of the prostate. Then to resect the left lobe of the prostate. I then resected the apical tissue of the prostate. This was a complete resection of all obstructive tissue to improve voiding and relieve obstruction. I then made sure that there was no injury to the sphincter or the verumontanum was still intact. At the end of the resection all the chips were Ellik out of the bladder. I then identified the left and right ureteral orifice and these were confirmed to be in good position and effluxing and not injured. The resectoscope was removed, a 22 [place] catheter was placed into the bladder on continuous irrigation. And the urine was fairly light pink color and draining normally. He was taken back to the PACU in good condition. Surgeon: Eitan Patterson Type of Anesthesia: General Drains: 22fr 3 way Admit VTE Documentation VTE Present on Admission: No VTE Mechan Device Prophylaxis: SCD's VTE Pharm Prophylaxis ordered?: No
[2022-09-25] MEDS: 0.9% Normal Saline 1,000 ML 125 ML IV (16:43)
[2022-09-25] MEDS: Docusate Sodium 100 MG Capsule 200 MG PO (22:44)
[2022-09-25] MEDS: Ciprofloxacin 400 MG/200 ML BAG 200 MG IV (22:44)
[2022-09-25] MEDS: Tamsulosin HCl 0.4 MG Capsule PO (22:44)
[2022-09-26 02:35] VITALS: BP 121/70; PULSE 81; RESP 16; TEMP 36.7; O2SAT 94
[2022-09-26] MEDS: 0.9% Normal Saline 1,000 ML 125 ML IV (02:40)
[2022-09-26 04:18] VITALS: BP 121/70; PULSE 81; RESP 16; TEMP 36.7; O2SAT 94
[2022-09-26 07:51] VITALS: BP 129/67; PULSE 66; RESP 18; TEMP 36.8; O2SAT 98
[2022-09-26] MEDS: Docusate Sodium 100 MG Capsule 200 MG PO (07:55)
[2022-09-26] MEDS: Cholecalciferol (VIT D3) 25 MCG TABLET (1,000 UNITS) PO (07:56)
[2022-09-26] MEDS: Allopurinol 300 MG Tablet PO (07:56)
--- NOTE | 2022-09-26 08:31 | PCM.PN.GU ---
Subjective Subjective Status post TURP no problems overnight pain was well controlled we will remove the catheter this morning for voiding trial as long as he can urinate and go home today without a catheter Objective Data Objective Data Vital Signs: Vital Signs Temp Pulse Resp BP Pulse Ox O2 Del Method O2 Flow Rate 98.2 F 66 18 129/67 H 98 Room Air 3 09/26/22 07:51 09/26/22 07:51 09/26/22 07:51 09/26/22 07:51 09/26/22 07:51 09/26/22 07:51 09/26/22 04:18 Oxygen Flow Rate (L/min) 3 Oxygen Delivery Method Room Air Weight: 83.2 kg Body Mass Index (BMI) 22.3 Intake & Output: Intake and Output for Last 24 Hours 09/24/22 09/25/22 09/26/22 23:59 23:59 23:59 Intake Total 110 / 510 2180.75 / 2180.75 Balance 110 / 510 2180.75 / 2180.75
[2022-09-26 08:42] VITALS: BP 129/67; PULSE 66; RESP 18; TEMP 36.8; O2SAT 98
[2022-09-26] MEDS: Ciprofloxacin 400 MG/200 ML BAG 200 MG IV (09:39)
== END 2022-09-26 12:00 | disposition home or self-care (01) ==
LOC: SDC 15:33 → MS3 15:33
PROVIDERS: Admitting Provider Urology; PCP Internal Medicine; Referring Provider Urology; Visit Provider Urology
PROC: (CPT 52601; principal; 2022-09-25 14:05)
DX: N40.1 Benign prostatic hyperplasia with lower urinary tract symptoms (principal); M10.9 Gout, unspecified; Z79.899 Other long term (current) drug therapy; N13.8 Other obstructive and reflux uropathy; M19.90 Unspecified osteoarthritis, unspecified site; J45.909 Unspecified asthma, uncomplicated; R33.8 Other retention of urine
CPT/HCPCS: 52601; 00914; 88305; 96361; 96365; 96366; 99218; 99251; 99252; J7030; J7120; G0378; G0463; J0744; J2405

== ENCOUNTER → 2022-09-28 | Outpatient (CLI) | payer MEDICARE, OTHER, SELFPAY | END | disposition home or self-care (01) | LOC: LABSPEC 16:42 | PROVIDERS: PCP Internal Medicine; Visit Provider Urology | DX: N30.01 Acute cystitis with hematuria (principal) | CPT/HCPCS: 87086 ==

== ENCOUNTER → 2023-01-29 | Outpatient (CLI) | payer MEDICARE, OTHER, SELFPAY ==
[2023-01-29 08:06] LABS: PSA,Total- Diagnostic 8.67 ng/mL (0.0-4.0)
== END | disposition home or self-care (01) ==
LOC: LAB 07:14
PROVIDERS: PCP Internal Medicine; Referring Provider Urology; Visit Provider Urology
DX: N40.0 Benign prostatic hyperplasia without lower urinary tract symptoms (principal)
CPT/HCPCS: 36415; 84153

== ENCOUNTER → 2023-02-17 | Outpatient (CLI) | payer MEDICARE, OTHER, SELFPAY ==
[2023-02-17 12:23] LABS: Absolute Lymphocyte Count 2.42 X10^3/uL (0.83-4.51); Absolute Neutrophil Count 3.8 X10^3/uL (2.0-7.7); Basophil# 0.04 X10^3/uL; Basophil% 0.6 % (0-1); Eosinophil# 0.16 X10^3/uL; Eosinophils% 2.3 % (0-5); Hematocrit 45.9 % (40-54); Lymphocyte # 2.42 X10^3/ul (0.83-4.51); Lymphocyte % 35.1 % (19-41); Mean Corp Hgb Conc 32.7 g/dL (32-36); Mean Corpuscular Volume 100.9 fL (80-94); Mean Platelet Vol. 9.4 fl (6.2-12.0); Monocyte# 0.47 X10^3/uL; Monocyte% 6.8 % (0-10); NRBC Flagged by Analyzer 0 % (0-5); Neutrophil # 3.78 X10^3/uL (2.7-7.7); Neutrophil % 54.8 % (47-70); Platelet Count 283 K/mm3 (150-450); RBC Distribution Width CV 12.6 % (11.6-14.6); RBC Distribution Width SD 47.4 fl (35.1-43.9); Red Blood Count 4.55 M/mm3 (4.6-6.2); White Blood Count 6.9 K/mm3 (4.4-11.0)
[2023-02-17 12:51] LABS: ALB/GLOB Ratio 1.2 RATIO (0.9-2.4); AST(SGOT) 16 U/L (15-37); Alanine Aminotransfer ALT/SGPT 24 U/L (16-61); Albumin, Serum 3.9 g/dL (3.2-5.0); Alkaline Phosphatase 80 U/L (45-117); Anion Gap 5 (5-15); BUN 16 mg/dL (7-18); BUN/Creat Ratio 18.6 RATIO (10-20); Calcium,Total 9.5 mg/dL (8.5-10.1); Chloride 108 mmol/L (98-107); Cholesterol 200 mg/dL (200); Creatinine, Serum 0.86 mg/dL (0.70-1.30); EST Glomerular Filtration Rate 93 mL/min (>60); Est Glom Filt Rate - Afr Amer 113 mL/min (>60); Globulin 3.2 g/dL (2.2-4.2); Glucose 92 mg/dL (74-106); High Density Lipoprotein 55 mg/dL; Potassium 4.5 mmol/L (3.5-5.1); Protein, Total 7.1 g/dL (6.4-8.2); Sodium Level 143 mmol/L (136-145); Thyroid Stim Hormone (TSH) 1.67 uIU/mL (0.358-3.74); Triglycerides 101 mg/dL; Very Low Density Lipoprotein 20 mg/dL (5-40)
== END | disposition home or self-care (01) ==
LOC: BIMLAB 08:35
PROVIDERS: PCP Internal Medicine; Referring Provider Nurse Practitioner Family; Visit Provider Nurse Practitioner Family
DX: Z00.00 Encounter for general adult medical examination without abnormal findings (principal); M10.9 Gout, unspecified; R79.89 Other specified abnormal findings of blood chemistry; N52.9 Male erectile dysfunction, unspecified; R53.83 Other fatigue
CPT/HCPCS: 36415; 80053; 80061; 84443; 85025

== ENCOUNTER → 2023-04-12 | Outpatient (CLI) | payer MEDICARE, OTHER, SELFPAY ==
[2023-04-12 15:31] LABS: Mucous, Urine 0 SEEN /hpf (<or=2+); Squamous Epithelial Cells - UA 0 SEEN /hpf (0-5)
[2023-04-12 17:22] LABS: Color, Urine Yellow (Yellow); Glucose, Dipstick Normal (Normal); Ketone-Dipstick 5 mg/dl (Negative); Leukocyte Esterase-Dipstick 25 /ul (Negative); Nitrite-Dipstick Negative (Negative); Occult Blood-Urine 50 /ul (Negative); Protein-Dipstick 100 mg/dl (Negative); Specific Gravity, Urine 1.025 (1.002-1.030); Urine Bilirubin Dipstick Negative (Negative); Urine Clarity Clear (Clear); Urine Urobilinogen Normal (Normal)
[2023-04-12 17:29] LABS: Bacteria RARE /hpf (None Seen); Red Blood Cells-Urine 10-25 SEEN /hpf (0-5); White Blood Cells 0-5 SEEN /hpf (0-5)
== END | disposition home or self-care (01) ==
LOC: BIMLAB 15:22
PROVIDERS: PCP Internal Medicine; Referring Provider Internal Medicine; Visit Provider Internal Medicine
DX: R10.9 Unspecified abdominal pain (principal)
CPT/HCPCS: 81001

== ENCOUNTER → 2023-04-17 | Outpatient (CLI) | payer MEDICARE, OTHER, SELFPAY ==
--- NOTE | 2023-04-17 07:45 | CT_ITS ---
INDICATION: Left Flank/Abdominal pain EXAMINATION: CT ABDOMEN AND PELVIS WITHOUT CONTRAST - CT Abdomen And Pelvis W/O Contrast Injection TECHNIQUE: Helically acquired images were obtained of the abdomen and pelvis without oral or IV contrast. A radiation dose optimization technique was used for this scan. IV Contrast dosage and agent: None. Oral contrast: None. RADIATION DOSAGE (If Supplied By Facility): CTDIvol = ( 8.10 ) mGy, DLP = ( 402.48 ) mGycm COMPARISON: December 01, 2019 FINDINGS: LOWER CHEST: There is a calcified nodule within the right lower lobe consistent with a granuloma. No cardiomegaly or pericardial effusion. The lack of intravenous contrast limits evaluation of solid visceral organs. LIVER: Homogeneous. No focal mass. GALLBLADDER AND BILIARY TREE: No calcified gallstones. No gallbladder distension or wall edema. No intra- or extrahepatic biliary ductal dilation. PANCREAS: No focal cystic or solid mass. SPLEEN: Normal size without focal cystic or solid mass. ADRENAL GLANDS: No nodules. KIDNEYS AND URETERS: Normal renal size and position. There are bilateral nonobstructing renal calculi measuring up to 6 mm on the right and 7 mm on the left. No hydronephrosis. PERITONEUM: No ascites or free air. No other fluid collection. BOWEL: No evidence of acute appendicitis. No stomach or bowel distension. There are diverticula arising from the colon. No focal inflammatory change. LYMPH NODES: No enlarged mesenteric or retroperitoneal lymph nodes. VESSELS: Aorta is non-dilated. There are peripheral calcifications of the abdominal aorta. URINARY BLADDER: There is a 7 mm calculus within the urinary bladder left of midline. REPRODUCTIVE ORGANS: No pelvic masses. The prostate gland is enlarged. ABDOMINAL WALL: No discrete abdominal or pelvic wall hernia. BONES: There is a left total hip arthroplasty in place. There are degenerative changes of the lumbar spine. There are degenerative changes of the right hip as well. CT/Abdomen/Pelvis without Cont IMPRESSION: Bilateral nonobstructing renal calculi measuring up to 7 mm on the left. 7 mm calculus within the urinary bladder left of midline. Enlarged prostate gland. Atherosclerosis. Colonic diverticulosis. Electronically Signed: Berna Wilkinson MD at 8:11 EDT ,
== END | disposition home or self-care (01) ==
LOC: CT 07:43
PROVIDERS: PCP Internal Medicine; Referring Provider Internal Medicine; Visit Provider Internal Medicine
DX: N20.0 Calculus of kidney (principal); R10.9 Unspecified abdominal pain
CPT/HCPCS: 74176

== ENCOUNTER → 2023-11-05 | Outpatient (CLI) | payer MEDICARE, OTHER, SELFPAY ==
[2023-11-05 10:10] LABS: PSA,Total- Diagnostic 7.33 ng/mL (0.0-4.0)
== END | disposition home or self-care (01) ==
PROVIDERS: PCP Internal Medicine; Referring Provider Urology; Visit Provider Urology
DX: C61 Malignant neoplasm of prostate (principal)
CPT/HCPCS: 36415; 84153

== ENCOUNTER → 2024-04-06 | Outpatient (CLI) | payer MEDICARE, OTHER, SELFPAY ==
[2024-04-06 16:42] LABS: Absolute Lymphocyte Count 2.49 X10^3/uL (0.83-4.51); Absolute Neutrophil Count 4.9 X10^3/uL (2.0-7.7); Basophil# 0.05 X10^3/uL; Basophil% 0.6 % (0-1); Eosinophil# 0.08 X10^3/uL; Hemoglobin 14.3 g/dL (13.0-16.5); Lymphocyte # 2.49 X10^3/ul (0.83-4.51); Lymphocyte % 30.9 % (19-41); Mean Corp Hgb Conc 32.5 g/dL (32-36); Mean Corpuscular Hgb 32.6 pg (27.0-32.0); Mean Corpuscular Volume 100.5 fL (80-94); Mean Platelet Vol. 9.3 fl (6.2-12.0); Monocyte# 0.53 X10^3/uL; Monocyte% 6.6 % (0-10); NRBC Flagged by Analyzer 0 % (0-5); Neutrophil # 4.89 X10^3/uL (2.7-7.7); Neutrophil % 60.8 % (47-70); Platelet Count 315 K/mm3 (150-450); RBC Distribution Width CV 12.4 % (11.6-14.6); RBC Distribution Width SD 46.3 fl (35.1-43.9); Red Blood Count 4.38 M/mm3 (4.6-6.2); White Blood Count 8.1 K/mm3 (4.4-11.0)
[2024-04-06 17:05] LABS: ALB/GLOB Ratio 1.3 RATIO (0.9-2.4); AST(SGOT) 18 U/L (15-37); Alanine Aminotransfer ALT/SGPT 21 U/L (16-61); Albumin, Serum 3.9 g/dL (3.2-5.0); Alkaline Phosphatase 99 U/L (45-117); Anion Gap 4 (5-15); BUN 16 mg/dL (7-18); BUN/Creat Ratio 16.1 RATIO (10-20); Calcium,Total 8.9 mg/dL (8.5-10.1); Chloride 108 mmol/L (98-107); Cholesterol 205 mg/dL (200); EST Glomerular Filtration Rate 79 mL/min (>60); Est Glom Filt Rate - Afr Amer 95 mL/min (>60); Globulin 3.1 g/dL (2.2-4.2); Glucose 105 mg/dL (74-106); High Density Lipoprotein 56 mg/dL; Potassium 4.3 mmol/L (3.5-5.1); Sodium Level 140 mmol/L (136-145); Triglycerides 132 mg/dL; Uric Acid 4.8 mg/dL (3.5-7.2); Very Low Density Lipoprotein 26 mg/dL (5-40)
== END | disposition home or self-care (01) ==
LOC: BIMLAB 15:14
PROVIDERS: PCP Internal Medicine; Visit Provider Internal Medicine
DX: E78.5 Hyperlipidemia, unspecified (principal); M10.9 Gout, unspecified
CPT/HCPCS: 36415; 80053; 80061; 84550; 85025

== ENCOUNTER → 2024-04-27 | Outpatient (CLI) | payer MEDICARE, OTHER, SELFPAY ==
[2024-04-27 08:29] LABS: Anion Gap 6 (5-15); BUN 15 mg/dL (7-18); BUN/Creat Ratio 16.9 RATIO (10-20); Calcium,Total 9.1 mg/dL (8.5-10.1); Chloride 106 mmol/L (98-107); Creatinine, Serum 0.89 mg/dL (0.70-1.30); EST Glomerular Filtration Rate 90 mL/min (>60); Est Glom Filt Rate - Afr Amer 109 mL/min (>60); Glucose 93 mg/dL (74-106); Potassium 3.7 mmol/L (3.5-5.1); Sodium Level 140 mmol/L (136-145)
== END | disposition home or self-care (01) ==
LOC: LAB 07:52
PROVIDERS: PCP Internal Medicine; Referring Provider Internal Medicine; Visit Provider Internal Medicine
DX: I10 Essential (primary) hypertension (principal)
CPT/HCPCS: 36415; 80048

== ENCOUNTER → 2024-05-19 | Outpatient (CLI) | payer MEDICARE, OTHER, SELFPAY ==
[2024-05-19 15:33] LABS: Anion Gap 6 (5-15); BUN 20 mg/dL (7-18); BUN/Creat Ratio 21.9 RATIO (10-20); Calcium,Total 9.3 mg/dL (8.5-10.1); Chloride 105 mmol/L (98-107); Creatinine, Serum 0.91 mg/dL (0.70-1.30); EST Glomerular Filtration Rate 87 mL/min (>60); Est Glom Filt Rate - Afr Amer 105 mL/min (>60); Glucose 89 mg/dL (74-106); Potassium 3.7 mmol/L (3.5-5.1); Sodium Level 139 mmol/L (136-145)
== END | disposition home or self-care (01) ==
LOC: BIMLAB 11:05
PROVIDERS: PCP Internal Medicine; Referring Provider Internal Medicine; Visit Provider Internal Medicine
DX: I10 Essential (primary) hypertension (principal)
CPT/HCPCS: 36415; 80048

== ENCOUNTER → 2024-06-02 | Outpatient (CLI) | payer MEDICARE, OTHER, SELFPAY ==
[2024-06-02 11:33] LABS: PSA,Total- Diagnostic 6.78 ng/mL (0.0-4.0)
== END | disposition home or self-care (01) ==
LOC: LAB 09:14
PROVIDERS: PCP Internal Medicine; Referring Provider Urology; Visit Provider Urology
DX: C61 Malignant neoplasm of prostate (principal)
CPT/HCPCS: 36415; 84153

== ENCOUNTER → 2024-08-21 | Outpatient (CLI) | payer MEDICARE, OTHER, SELFPAY ==
[2024-08-21 16:02] LABS: Anion Gap 6 (5-15); BUN 18 mg/dL (7-18); BUN/Creat Ratio 17.6 RATIO (10-20); Chloride 105 mmol/L (98-107); Creatinine, Serum 1.02 mg/dL (0.70-1.30); EST Glomerular Filtration Rate 77 mL/min (>60); Est Glom Filt Rate - Afr Amer 93 mL/min (>60); Glucose 95 mg/dL (74-106); Potassium 4.2 mmol/L (3.5-5.1); Sodium Level 140 mmol/L (136-145)
== END | disposition home or self-care (01) ==
LOC: BIMLAB 11:34
PROVIDERS: PCP Internal Medicine; Referring Provider Internal Medicine; Visit Provider Internal Medicine
DX: I10 Essential (primary) hypertension (principal)
CPT/HCPCS: 36415; 80048

== ENCOUNTER → 2025-02-19 | Outpatient (CLI) | payer MEDICARE, OTHER, SELFPAY ==
[2025-02-19 15:48] LABS: Absolute Lymphocyte Count 2.35 X10^3/uL (0.83-4.51); Absolute Neutrophil Count 6.7 X10^3/uL (2.0-7.7); Basophil# 0.07 X10^3/uL; Basophil% 0.7 % (0-1); Hematocrit 40.9 % (40-54); Hemoglobin 13.9 g/dL (13.0-16.5); Lymphocyte # 2.35 X10^3/ul (0.83-4.51); Lymphocyte % 23.5 % (19-41); Mean Corpuscular Hgb 33.8 pg (27.0-32.0); Mean Corpuscular Volume 99.5 fL (80-94); Mean Platelet Vol. 9.2 fl (6.2-12.0); Monocyte# 0.63 X10^3/uL; Monocyte% 6.3 % (0-10); NRBC Flagged by Analyzer 0 % (0-5); Neutrophil # 6.67 X10^3/uL (2.7-7.7); Neutrophil % 66.9 % (47-70); Platelet Count 313 K/mm3 (150-450); RBC Distribution Width CV 12.1 % (11.6-14.6); RBC Distribution Width SD 44.7 fl (35.1-43.9); Red Blood Count 4.11 M/mm3 (4.6-6.2)
[2025-02-19 22:29] LABS: ALB/GLOB Ratio 1.6 RATIO (0.9-2.4); AST(SGOT) 21 U/L (<=37); Alanine Aminotransfer ALT/SGPT 15 U/L (<=46); Albumin, Serum 4.4 g/dL (3.4-4.8); Alkaline Phosphatase 90 U/L (40-129); Anion Gap 13 (5-15); BUN 17 mg/dL (4-19); Calcium,Total 9.7 mg/dL (7.6-11.0); Chloride 97 mmol/L (98-108); Creatinine, Serum 1.04 mg/dL (0.70-1.20); EST Glomerular Filtration Rate 77 (>60); Globulin 2.8 g/dL (2.2-4.2); Glucose 110 mg/dL (70-99); Potassium 4.7 mmol/L (3.3-5.1); Protein, Total 7.2 g/dL (5.9-8.4); Sodium Level 137 mmol/L (133-145)
[2025-02-19 23:14] LABS: Cholesterol 207 mg/dL (<=200); High Density Lipoprotein 44 mg/dL; Low Density Lipoprotein Calc. 114 mg/dL; Triglycerides 242 mg/dL; Uric Acid 6.2 mg/dL (3.5-7.2); Very Low Density Lipoprotein 48 mg/dL (5-40); cholesterol:hdl ratio screen 4.67
== END | disposition home or self-care (01) ==
LOC: BIMLAB 13:20
PROVIDERS: PCP Internal Medicine; Referring Provider Internal Medicine; Visit Provider Internal Medicine
DX: I10 Essential (primary) hypertension (principal); M10.9 Gout, unspecified
CPT/HCPCS: 36415; 80053; 80061; 84550; 85025

== ENCOUNTER → 2025-03-05 | Outpatient (CLI) | payer MEDICARE, OTHER, SELFPAY ==
[2025-03-05 08:33] LABS: PSA,Total- Diagnostic 6.86 ng/mL (0.00-4.00)
== END | disposition home or self-care (01) ==
LOC: LAB 07:07
PROVIDERS: PCP Internal Medicine; Referring Provider Urology; Visit Provider Urology
DX: C61 Malignant neoplasm of prostate (principal)
CPT/HCPCS: 36415; 84153

== ENCOUNTER → 2025-08-21 | Outpatient (CLI) | payer MEDICARE, OTHER, SELFPAY ==
--- OUTSIDE RECORDS SUMMARY | 2025-08-21 07:12 | XMS RPT_ITS | CCD ---
Author Organization [facility]ini[facility] Care Team Providers Care Horse Stud Manager Name Role Phone JOSE, JORGE E Attending Unavailable JOSE, JORGE E Primary Care Unavailable JOSE, JORGE E Admitting Unavailable JOSE, JORGE E Attending Unavailable JOSE, JORGE E Primary Care Unavailable JOSE, JORGE E Admitting Unavailable Dr. Gregg Powers Primary Care Provider [phone] Dr. Gregg Powers Referring Provider [phone] Kenji ARREOLA, MAXWELL-C Joon Attending Provider [phone] Dr. Gregg Powers Primary Care Provider [phone] Dr. Gregg Powers Referring Provider [phone] Kenji ARREOLA NP-C Joon Attending Provider [phone] Dr. Peter Pedro Attending Provider SUMMER Jones Referring Provider Dr. Ja Weiner Emergency Provider Dr. Vinod Gallardo Admit Provider Dr. Vinod Gallardo Attending Provider Dr. Vinod Gallardo Other Provider Dr. Eitan Patterson Other Provider Dr. Fabiola Lerma Attending Provider Dr. Fabiola Lerma Other Provider Dr. Meet Vanegas Attending Provider Dr. Meet Vanegas Other Provider Oleghe, Dr. Escobedo Primary Care Provider [phone] Priya, Dr. Escobedo Referring Provider [phone] Kenji MEDICAL CLAIMS ANALYST, JED Dupree Attending Provider [phone] Priya, Dr. Escobedo Attending Provider [phone] Priya CESAR, Dr. Escobedo Primary Care Provider Priya CESAR, Dr. Escobedo Attending Provider [phone] Priya CESAR, Dr. Escobedo Referring Provider [phone] Leonardo CESAR, Dr. Eitan Bishop Attending Provider Leonardo CESAR, Dr. Eitan Bishop Referring Provider [phone] Oleghe, Efewongbe Primary Care Unavailable Oleghe, Efewongbe Referring Unavailable Oleghe, Efewongbe Attending Unavailable Oleghe, Efewongbe Primary Care Unavailable Oleghe, Efewongbe Referring Unavailable Oleghe, Efewongbe Attending Unavailable Oleghe, Efewongbe Referring Unavailable Oleghe, Efewongbe Attending Unavailable Oleghe, Efewongbe Primary Care Unavailable Oleghe, Efewongbe Primary Care Unavailable LeonardoEitan Referring Unavailable LeonardoEitan Attending Unavailable Oleghe, Efewongbe Primary Care Unavailable Oleghe, Efewongbe Referring Unavailable Oleghe, Efewongbe Attending Unavailable Oleghe, Efewongbe Referring Unavailable Oleghe, Efewongbe Attending Unavailable Oleghe, Efewongbe Primary Care Unavailable Medications Current Medications Medication Drug Class(es) Dates Sig (Normalized) Sig (Original) acetaminophen 325 mg oral capsule (12 sources) Start: 07-21-2022 take 1 capsule by mouth once as needed for pain Acetaminophen (Tylenol) 325 mg capsule Active 325 mg PO ONCE as needed for Pain July 21, 2022 12:00am aspirin 81 mg delayed release oral tablet (2 sources) Platelet Aggregation Inhibitor, Nonsteroidal Anti-inflammatory Drug Start: 08-19-2022 Aspirin (Adult Low Dose Aspirin) 81 mg tablet,delayed release (DR/EC) Active 81 MG PO TWICE A DAY August 19, 2022 12:00am cephalexin 500 mg oral capsule (2 sources) Cephalosporin Antibacterial Start: 08-20-2022 take 500 mg by mouth every six hours Cephalexin Active 500 MG PO EVERY 6 HOURS August 20, 2022 12:00am famotidine 20 mg oral tablet (4 sources) Histamine-2 Receptor Antagonist Start: 08-15-2022 take 20 mg by mouth once daily Famotidine Active 20 MG PO DAILY August 15, 2022 12:00am ibuprofen 200 mg oral capsule (4 sources) Nonsteroidal Anti-inflammatory Drug Start: 04-12-2023 take 1 capsule by mouth every six hours as needed for pain Ibuprofen 200 mg capsule Active 200 mg PO EVERY 6 HOURS as needed for Pain April 12, 2023 12:00am Vitamin B Complex (5 sources) Start: 09-18-2022 take 1 tablet by mouth once daily Vitamin B Complex Active 1 TABLET PO DAILY September 17, 2022 11:00pm Start: 09-18-2022 take 1 tablet by mouth once da michael Vitamin B Complex Active 1 TABLET PO DAILY September 18, 2022 12:00am Vitamin B Complex Tablet (2 sources) Start: 09-18-2022 Vitamin B Comp usman Tablet Active 1 {tbl} PO DAILY September 18, 2022 12:00am Vitamin D3-Vitamin K2 (2 sources) Start: 04-06-2024 Vitamin D3-Vit christian K2 1,250-200 mcg capsule Active NMA PO April 06, 2024 12:00am Completed/Discontinued Medications Medication Drug Class(es) Dates Sig (Normalized) Sig (Original) acetaminophen 325 mg / oxyCODONE hydrochloride 5 mg oral tablet (13 sources) Opioid Agonist Start: 12-01-2019 End: 12-04-2019 Oxycodone-Acetamino phen 1 TABLET tablet Discontinued 1 - 2 {tbl} PO EVERY 6 HOURS NEEDED as needed for Pain 12 December 01, 2019 December 03, 2019 1:00am December 04, 2019 1:08am Start: 12-01-2019 End: 12-04-2019 take 1 tablet by mouth every six hours as needed Oxycodone-Acetaminophen Discontinued 1 - 2 TABLET PO EVERY 6 HOURS NEEDED 12 December 01, 2019 December 04, 2019 12:08am allopurinol 300 mg oral tablet (20 sources) Xanthine Oxidase Inhibitor Start: 01-19-2018 End: 02-19-2025 take 1 tablet by mouth once daily Allopurinol 300 mg tablet Discontinued 300 mg PO DAILY April 11, 2024 11:42am February 19, 2025 1:15pm cholecalciferol 0.025 mg oral capsule (12 sources) Vitamin D Start: 07-21-2022 End: 04-06-2024 take 1 capsule by mouth once daily Cholecalciferol (Vitamin D3) 25 mcg (1,000 unit) capsule Discontinued 25 ug PO DAILY July 21, 2022 12:00am April 06, 2024 2:14pm ciprofloxacin 500 mg oral tablet (7 sources) Quinolone Antimicrobial Start: 09-25-2022 End: 02-17-2023 take 1 tablet by mouth twice daily Ciprofloxacin Hcl (Cipro) 500 mg tablet Discontinued 500 mg PO TWICE A DAY September 25, 2022 12:00am February 17, 2023 8:13am docusate sodium 50 mg / sennosides, correction 8.6 mg oral tablet (10 sources) Start: 08-17-2022 End: 08-19-2022 Sennosides-Docusate Sodium (Stool Softener-Stimulant Laxat) 8.6-50 mg Tablet Discontinued 2 {tbl} PO TWICE DAILY NEEDED as needed for Constipation August 17, 2022 12:00am August 19, 2022 10:04am hydroCHLOROthiazide 25 mg oral tablet (8 sources) Thiazide Diuretic Start: 04-12-2024 End: 02-19-2025 take 1 tablet by mouth once daily Hydrochlorothiazide 25 mg tablet Discontinued 25 mg PO DAILY December 04, 2024 2:06pm February 19, 2025 1:15pm meloxicam 15 mg oral tablet (13 sources) Nonsteroidal Anti-inflammatory Drug Start: 02-06-2022 End: 08-17-2022 take 7.5-15 mg by mouth once daily as needed for pain Meloxicam 15 mg tablet Discontinued 7.5 - 15 mg PO DAILY as needed for osteoarthritis pain February 06, 2022 1:00am August 17, 2022 8:01am metroNIDAZOLE 0.01 mg/mg topical gel (20 sources) Nitroimidazole Antimicrobial Start: 01-19-2018 End: 01-18-2019 Metronidazole (Metrogel) 1 % gel Discontinued 1 NMA TOPICAL daily as needed for Rosacea 60 January 25, 2018 10:32am January 18, 2019 4:54pm On Hold: Order Changed Metronidazole 0.75 % emulsion (2 sources) Start: 01-20-2018 End: 01-20-2018 Metronidazole 0.75 % emulsion Discontinued % TOPICAL January 20, 2018 1:00am January 20, 2018 12:30pm metronidazole 0.75 % topical emulsion (11 sources) Start: 01-20-2018 End: 01-20-2018 metronidazole 0.75 % topical emulsion Discontinued % TOPICAL January 20, 2018 10:32am January 20, 2018 12:30pm Start: 01-20-2018 End: 01-20-2018 metronidazole 0.75 % topical emulsion Discontinued % TOPICAL January 20, 2018 12:00am January 20, 2018 11:30am Start: 01-20-2018 End: 01-20-2018 metronidazole 0.75 % topical emulsion Discontinued % TOPICAL January 20, 2018 1:00am January 20, 2018 12:30pm olmesartan medoxomil 5 mg oral tablet (10 sources) Angiotensin 2 Receptor Araceli Start: 05-01-2024 End: 02-19-2025 take 1 tablet by mouth once daily Olmesartan 5 mg tablet Discontinued 5 mg PO DAILY December 20, 2024 12:08pm February 19, 2025 1:15pm ondansetron 4 mg disintegrating oral tablet (13 sources) Serotonin-3 Receptor Antagonist Start: 12-01-2019 End: 02-06-2022 take 1 tablet by mouth every eight hours as needed for nausea Ondansetron 4 MG tablet Discontinued 4 mg PO EVERY 8 HOURS NEEDED as needed for Nausea December 01, 2019 1:00am February 06, 2022 8:08am potassium citrate 15 meq extended release oral tablet (13 sources) Start: 01-31-2020 End: 08-17-2022 take 1 tablet by mouth twice daily Potassium Citrate 15 mEq tablet extended release Discontinued 15 meq PO TWICE A DAY January 31, 2020 1:00am August 17, 2022 8:02am sildenafil 25 mg oral tablet (20 sources) Phosphodiesterase 5 Inhibitor Start: 01-20-2018 End: 01-18-2019 Sildenafil (Viagra) 25 mg tablet Discontinued 25 mg PO ONCE 7 January 25, 2018 10:32am January 18, 2019 4:37pm administer 30 minutes to 4 hours before activity tamsulosin hydrochloride 0.4 mg oral capsule (10 sources) alpha-Adrenergic Araceli Start: 08-16-2022 End: 02-17-2023 take 1 capsule by mouth at bedtime Tamsulosin (Flomax) 0.4 mg capsule Discontinued 0.4 mg PO AT BEDTIME 90 August 16, 2022 12:00am February 17, 2023 8:13am Problems Problem Classification Problem Date Documented Da te Episodic/Chronic Abdominal pain (10 sources) Left flank pain; Translations: [Unspecified abdominal pain] 04-12-2023 Episodic Acute and unspecified renal failure (19 sources) Injury of kidney; Translations: [Acute kidney failure, unspecified] Episodic Calculus of urinary tract (18 sources) Kidney stone; Translations: [Calculus of kidney] 12-02-2019 Episodic Cancer of prostate (1 source) Malignant neoplasm of prostate; Translations: [Malignant neoplasm of prostate] Onset: 03-08-2025 Chronic Cancer of prostate (2 sources) History of malignant neoplasm of prostate; Translations: [Personal history of malignant neoplasm of prostate] 04-06-2024 Episodic Deficiency and other anemia (3 sources) Nutritional anemia, unspecified; Translations: [Unspecified deficiency anemia] Episodic Diseases of white blood cells (16 sources) Leukocytosis; Translations: [Elevated white blood cell count, unspecified] Chronic Disorders of lipid metabolism (5 sources) Hyperlipidemia; Translations: [Hyperlipidemia, unspecified] Onset: 08-20-2025 08-21-2024 Chronic Essential hypertension (5 sources) Hypertensive disorder; Translations: [Essential (primary) hypertension] Onset: 08-20-2025 04-06-2024 Chronic Fluid and electrolyte disorders (19 sources) Acute hyponatremia; Translations: [Hypo-osmolality and hyponatremia] Episodic Genitourinary symptoms and ill-defined conditions (19 sources) Acute retention of urine ; Translations: [Other retention of urine] Episodic Gout and other crystal arthropathies (19 sources) Gout; Translations: [Gout, unspecified] Onset: 08-20-2025 Chronic Immunizations and screening for infectious disease (1 source) Encounter for immunization; Translations: [Encounter for immunization] Onset: 08-20-2025 Episodic Osteoarthritis (16 sources) Osteoarthritis; Translations: [Unspecified osteoarthritis, unspecified site] Chronic Other connective tissue disease (9 sources) History of repair of hip joint; Translations: [Presence of right artificial hip joint] 09-18-2022 Chronic Comment on above: 08/06/2022 Other connective tissue disease (3 sources) Presence of left artificial hip joint; Translations: [Hip joint replacement] Chronic Other inflammatory condition of skin (13 sources) Rosacea; Translations: [Rosacea, unspecified] 01-19-2018 Chronic Other lower respiratory disease (13 sources) H/O: asthma; Translations: [Personal history of other diseases of the respiratory system] 01-20-2018 Episodic Other male genital disorders (13 sources) Male erectile dysfunction, unspecified; Translations: [Erectile dysfunction] 01-20-2018 Chronic Other screening for suspected conditions (not mental disorders or infectious disease) (15 sources) Raised prostate specific antigen; Translations: [Elevated prostate specific antigen [PSA]] 01-19-2018 Episodic Results Test Name Value Interpretation Reference Range Facility Internal Medicine Office Vis [facility] 08-20-2025 Internal Medicine Office Visit [facility] [address] [place] [address] OFFICE VISIT Date of Service: 08/20/25 MR#: [id number] Acct: [id number] Name: FLORENCE CHOUDHARY Rep #: [id number] : 1955 Provider: Dr. Gregg fowler MD Age/Sex: 70/M [place] [facility] [place] Status: Signed Intake Vital Signs 02/19/25 13:00 08/20/25 09:54 Height 6 ft 4 in 6 ft 4 in Weight: 191 lb BMI 23.2 BP 128/76 H Blood Pressure Location Lt brachial Position Sitting Respiration 18 Pulse 75 Pulse Source Monitor Temp 97.8 F Temp Source Temporal Pulse Oximetry (%) 96 Oxygen Delivery Method room air Intake Visit Reasons: 6 M FU Chief Complaint: 6 M FU Is patient in pain?: No Allergies No Known Allergies Allergy (Verified 08/20/25 09:53) Medications ???Medication ???Instructions ???Recorded ???Confirmed ???Type acetaminophen 325 mg capsule 325 mg PO ONCE PRN Pain 07/21/22 0 08/20/25 History (Tylenol) vitamin B complex 1 tab PO DAILY 09/18/22 08/20/25 H istory ibuprofen 200 mg capsule 200 mg PO Q6H PRN Pain 04/12/23 History vitamin D3 1,250 mcg (50,000 cap PO For hip replacement 4 08/20/25 History unit)-vitamin K2 200 mcg capsule allopurinol 300 mg tablet 300 mg PO DAILY #90 tabs 02/19/25 08/20/25 Rx hydrochlorothiazide 25 mg tablet 25 mg PO DAILY #90 tabs 02/19/25 0 08/20/25 Rx olmesartan 5 mg tablet 5 mg PO DAILY #90 tabs 02/19/25 Rx Have you fallen in the past year?: No PFSH Medical History (Updated 08/20/25 @ 12:[address] Gregg Powers MD) Flu vaccine need Muscle cramps Health care maintenance History of prostate cancer Hypertension Hyperlipidemia Back pain Non-smoker Leg cramps History of edema Abdominal pain Left flank pain Wears glasses Cancer Arthritis Injury of head and neck Asthma History of rheumatic fever Preoperative clearance Osteoarthritis Encounter for preventative adult health care examination Kidney stones History of asthma Rosacea Elevated PSA Gout Surgical History History of hip replacement (08/06/22) History of colonoscopy (04/01/23) Hx of transurethral resection of prostate Hx of total hip arthroplasty History of vasectomy History of tonsillectomy Family History Mother Hypertension Social History adopted: No household members: spouse number of children: 4 current occupational status: retired current occupational exposures/hazards: No pets and animals: No leisure activities: sports, exercise, music, games and volunteer work history of recent travel: No sexually active: Yes Smoking Status: Never smoker second hand exposure: Yes (When I 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19, 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.) alcohol intake: never substance use type: does not use well-balanced diet: daily or most days caffeine: Yes (Occasionally - I do drink soft drinks and coffee, which is mostly decaf.) Type: carbonated beverages and coffee eating out: 1-3 times/week during the past year weight has: remained stable what type of physical activity do you participate in: walking, bicycling, weight training and other details: basketball frequency: 3-4 times per week duration: 60-90 minutes/day faustino/shinto: jain seatbelt use: always do you feel safe at home: Yes HPI HPI Chief Complaint: 6 M FU Details: FLORENCE CHOUDHARY, is a 70-year-old male presenting for follow-up of his chronic conditions and with muscle cramps. The patient reports experiencing cramps in the feet, legs, and hands, which occur following exercise, potentially does not happen otherwise. Spontaneously resolves. Feels well in between episodes. The patient also has a history of primary osteoarthritis, having undergone left hip replacement, with the right hip demonstrating some degenerative changes noted during a previous x-ray. However, the right hip symptoms have not progressed significantly to warrant further surgical intervention at this time. Essential hypertension is managed with hydrochlorothiazide . History of hyperlipidemia, specifically elevated triglycerides at last check. Currently not on any medication. Also history of gout, tolerating medication well and has no concerns in that regard. Attestation: Documentation on this patient encounter was supported using ambient scribe technology/ voice AI technology. The patient consented to recording for the purpose of documenting the encounter. Provider reviewed content of the generated note prior to signature. ROS Const Constitutional: No body ache, chills, excessive sweating, fatigue, fever(s), frequent f (more content not included)... Normal [facility] Diagnostic total prostate sp ecific antigen (PSA) measurementOrdered By: Eitan Patterson on 03-05-2025 Prostate Specific Antigen Total 6.86 ng/mL High 0.00-4.[address] [facility] Comment on above: This test was perfor med using the [facility] tPSA method. Measured values of a patient sample can vary depending on the testing procedure used. PSA values determined on patient samples by different testing procedures cannot be used interchangeably. If there is a change in PSA assays while monitoring therapy, sequential testing should be performed to confirm baseline values. PSA,Total- Diagnosticon 04-0 PSA, DIAGNOSTIC 6.86 ng/mL High 0.00-4.[address] [facility] Comment on above: Result Comment: This test was performed using the [employer] tPSA method. Measured values of a patient??sample can vary depending on the testing procedure used. PSA values determined on patient samples by different testing procedures cannot be used interchangeably. If there is a change in PSA assays while monitoring therapy, sequential testing should be performed to confirm baseline values. Performed By: #### L 501.9940 #### [facility] [address] [place], [address] Absolute neutrophil countOrd ered By: Gregg Powers on 02-19-2025 Neutrophils (Bld) [#/Vol] 6.7 10*3/uL 2.0-7.[address] [facility] Anion gap in Serum or Plasma Ordered By: Gregg Powers on 02-19-2025 Anion gap [Moles/Vol] 13 mmol/L 5-15 [facility] BUN/creatinine ratioOrdered By: Jeffridley parkdarcy Powers on 02-19-2025 Urea nitrogen/Creatinine [Mass ratio] 16.0 mg/mg 10- [facility] Basophil percentageOrdered B y: Gregg Powers on 02-19-2025 Basophils/100 WBC (Bld) 0.7 % 0-1 [facility] Bilirubin, totalOrdered By: Gregg Powers on 02-19-2025 Bilirubin [Mass/Vol] 0.40 mg/dL 0.00-1.30 [facility] CBC W/Diff, Automatedon 01-28 Absolute Lymph 2.35 X10 3/uL Normal 0.83-4.[address] [facility] Comment on above: Performed By: #### L 501.1400, L500.4100, L500.4050, L100.0100 #### [facility] [address] [place], [address] Absolute Neut 6.7 X10 3/uL Normal 2.0-7.[address] [facility] Comment on above: Performed By: #### L 501.1400, L500.4100, L500.4050, L100.0100 #### [facility] [address] [place], [address] Basophils/100 WBC (Bld) 0.7 % Normal 0-1 [facility] Comment on above: Performed By: #### L 501.1400, L500.4100, L500.4050, L100.0100 #### [facility] [address] [place], [address] Eosinophils/100 WBC (Bld) 2.0 % Normal 0-[address] [facility] Comment on above: Performed By: #### L 501.1400, L500.4100, L500.4050, L100.0100 #### [facility] [address] [place], [address] Erythrocyte distribution width (RBC) [Ratio] 12.1 % Normal 11.6-14.[address] [facility] Comment on above: Performed By: #### L 501.1400, L500.4100, L500.4050, L100.0100 #### [facility] [address] [place], [address] Hematocrit (Bld) [Volume fraction] 40.9 % Normal 40-[address] [facility] Comment on above: Performed By: #### L 501.1400, L500.4100, L500.4050, L100.0100 #### [facility] [address] [place], [address] Hemoglobin (Bld) [Mass/Vol] 13.9 g/dL Normal 13.0-16.[address] [facility] Comment on above: Performed By: #### L 501.1400, L500.4100, L500.4050, L100.0100 #### [facility] [address] [place], [address] IG% 0.600 Normal 0.0-0.[address] [facility] Comment on above: Result Comment: IG% - Immature Granulocytes (promyelocytes, myelocytes and metamyelocytes) > 1% indicates that a LEFT SHIFT is Present. Performed By: #### L 501.1400, L500.4100, L500.4050, L100.0100 #### [facility] [address] [place], [address] Lymphocytes/100 WBC (Bld) 23.5 % Normal 19-[address] [facility] Comment on above: Performed By: #### L 501.1400, L500.4100, L500.4050, L100.0100 #### [facility] [address] [place], [address] MCH (RBC) [Entitic mass] 33.8 pg High 27.0-32.[address] [facility] Comment on above: Performed By: #### L 501.1400, L500.4100, L500.4050, L100.0100 #### [facility] [address] [place], [address] MCHC (RBC) [Mass/Vol] 34.0 g/dL Normal 32-36 [facility] Comment on above: Performed By: #### L 501.1400, L500.4100, L500.4050, L100.0100 #### [facility] [address] [place], [address] MCV (RBC) [Entitic vol] 99.5 fL High 80-94 [facility] Comment on above: Performed By: #### L 501.1400, L500.4100, L500.4050, L100.0100 #### [facility] [address] [place], [address] Monocytes/100 WBC (Bld) 6.3 % Normal 0-10 [facility] Comment on above: Performed By: #### L 501.1400, L500.4100, L500.4050, L100.0100 #### [facility] [address] [place], [address] Neutrophils/100 WBC (Bld) 66.9 % Normal 47-[address] [facility] Comment on above: Performed By: #### L 501.1400, L500.4100, L500.4050, L100.0100 #### [facility] [address] [place], [address] Nucleated RBC (Bld) [#/Vol] 0 10*3/uL Normal 0-[address] [facility] Comment on above: Performed By: #### L 501.1400, L500.4100, L500.4050, L100.0100 #### [facility] [address] [place], [address] Platelet mean volume (Bld) [Entitic vol] 9.2 fL Normal 6.2-12.[address] [facility] Comment on above: Performed By: #### L 501.1400, L500.4100, L500.4050, L100.0100 #### [facility] [address] [place], [address] Platelets (Bld) [#/Vol] 313 10*3/uL Normal 150-[address] [facility] Comment on above: Performed By: #### L 501.1400, L500.4100, L500.4050, L100.0100 #### [facility] [address] [place], [address] RBC (Bld) [#/Vol] 4.11 10*6/uL Low 4.6-6.2 [facility] Comment on above: Performed By: #### L 501.1400, L500.4100, L500.4050, L100.0100 #### [facility] [address] [place], [address] RDW SD 44.7 fl High 35.1-43.[address] [facility] Comment on above: Performed By: #### L 501.1400, L500.4100, L500.4050, L100.0100 #### [facility] [address] [place], [address] WBC (Bld) [#/Vol] 10.0 10*3/uL Normal 4.4-11.0 [facility] Comment on above: Performed By: #### L 501.1400, L500.4100, L500.4050, L100.0100 #### [facility] [address] [place], [address] Calculated very low density lipoprotein (VLDL) cholesterol measurementOrdered By: Gregg Powers on 02-19-2025 VLDL Cholesterol 48 mg/dL High 5-[address] [facility] Carbon dioxide, total [Moles /volume] in Central venous bloodOrdered By: Gregg Powers on 02-19-2025 CO2 [Moles/Vol] 27.0 mmol/L 21.0-32.[address] [facility] Chloride assayOrdered By: Remi Powers on 02-19-2025 Chloride [Moles/Vol] 97 mmol/L Low 98-108 [facility] Comprehensive Metabolic Prof ilon 02-19-2025 Albumin [Mass/Vol] 4.4 g/dL Normal 3.4-4.8 [facility] Comment on above: Performed By: #### L 501.1400, L500.4100, L500.4050, L100.0100 #### [facility] [address] [place], [address] Albumin/Globulin [Mass ratio] 1.6 {ratio} Normal 0.9-2.[address] [facility] Comment on above: Performed By: #### L 501.1400, L500.4100, L500.4050, L100.0100 #### [facility] [address] [place], [address] ALK PHOS 90 U/L Normal 40-[address] [facility] Comment on above: Performed By: #### L 501.1400, L500.4100, L500.4050, L100.0100 #### [facility] [address] [place], [address] ALT [Catalytic activity/Vol] 15 U/L Normal <=[address] [facility] Comment on above: Performed By: #### L 501.1400, L500.4100, L500.4050, L100.0100 #### [facility] [address] [place], [address] AST [Catalytic activity/Vol] 21 U/L Normal <=[address] [facility] Comment on above: Performed By: #### L 501.1400, L500.4100, L500.4050, L100.0100 #### [facility] [address] [place], [address] Bilirubin [Mass/Vol] 0.40 mg/dL Normal 0.00-1.30 [facility] Comment on above: Performed By: #### L 501.1400, L500.4100, L500.4050, L100.0100 #### [facility] [address] [place], [address] BUN/CRE 16.0 RATIO Normal 10-[address] [facility] Comment on above: Performed By: #### L 501.1400, L500.4100, L500.4050, L100.0100 #### [facility] [address] [place], [address] Calcium [Mass/Vol] 9.7 mg/dL Normal 7.6-11.0 [facility] Comment on above: Performed By: #### L 501.1400, L500.4100, L500.4050, L100.0100 #### [facility] [address] [place], [address] Chloride [Moles/Vol] 97 mmol/L Low 98-108 [facility] Comment on above: Performed By: #### L 501.1400, L500.4100, L500.4050, L100.0100 #### [facility] [address] [place], [address] CO2 [Moles/Vol] 27.0 mmol/L Normal 21.0-32.[address] [facility] Comment on above: Performed By: #### L 501.1400, L500.4100, L500.4050, L100.0100 #### [facility] [address] [place], [address] Creatinine [Mass/Vol] 1.04 mg/dL Normal 0.70-1.20 [facility] Comment on above: Performed By: #### L 501.1400, L500.4100, L500.4050, L100.0100 #### [facility] [address] [place], [address] GAP 13 Normal 5-[address] [facility] Comment on above: Performed By: #### L 501.1400, L500.4100, L500.4050, L100.0100 #### [facility] [address] [place], [address] GFR/1.73 sq M.predicted among non-blacks MDRD (S/P/Bld) [Vol rate/Area] 77 mL/min/{1.73_m2} Normal >60 [facility] Comment on above: Result Comment: mL/m in/1.73m2 CKD-EPI Creatinine Equation (2020) Performed By: #### L 501.1400, L500.4100, L500.4050, L100.0100 #### [facility] [address] [place], [address] Globulin (S) [Mass/Vol] 2.8 g/dL Normal 2.2-4.2 [facility] Comment on above: Performed By: #### L 501.1400, L500.4100, L500.4050, L100.0100 #### [facility] [address] [place], [address] Glucose [Mass/Vol] 110 mg/dL High 70-99 [facility] Comment on above: Performed By: #### L 501.1400, L500.4100, L500.4050, L100.0100 #### [facility] [address] [place], [address] Potassium [Moles/Vol] 4.7 mmol/L Normal 3.3-5.1 [facility] Comment on above: Performed By: #### L 501.1400, L500.4100, L500.4050, L100.0100 #### [facility] [address] [place], [address] Sodium [Moles/Vol] 137 mmol/L Normal 133-145 [facility] Comment on above: Performed By: #### L 501.1400, L500.4100, L500.4050, L100.0100 #### [facility] [address] [place], [address] T PROT 7.2 g/dL Normal 5.9-8.[address] [facility] Comment on above: Performed By: #### L 501.1400, L500.4100, L500.4050, L100.0100 #### [facility] [address] [place], [address] Urea nitrogen [Mass/Vol] 17 mg/dL Normal 4-[address] [facility] Comment on above: Performed By: #### L 501.1400, L500.4100, L500.4050, L100.0100 #### [facility] [address] [place], [address] Eosinophil percentageOrdered By: Gregg Powers on 02-19-2025 Eosinophils/100 WBC (Bld) 2.0 % 0-[address] [facility] Erythrocyte distribution wid th ratioOrdered By: Gregg Powers on 02-19-2025 Erythrocyte distribution width (RBC) [Ratio] 12.1 % 11.6-14.[address] [facility] Erythrocyte distribution wid th standard deviationOrdered By: Gregg Powers on 02-19-2025 Erythrocyte distribution width (RBC) [Entitic vol] 44.7 fL High 35.1-43.9 [facility] GFR/1.73 sq M.predicted dave g non-blacks MDRD (S/P/Bld) [Vol rate/Area]Ordered By: Gregg Powers on 02-19-2025 Estimated GFR (MDRD) Non-Af Amer 77 >[address] [facility] Comment on above: mL/min/1.73m2 CKD-EP I Creatinine Equation (2020) Hematocrit Auto (Bld) [Volum e fraction]Ordered By: Gregg Powers on 02-19-2025 Hematocrit (Bld) [Volume fraction] 40.9 % 40-[address] [facility] Hemoglobin measurementOrdere d By: Gregg Powers on 02-19-2025 Hemoglobin (Bld) [Mass/Vol] 13.9 g/dL 13.0-16.[address] [facility] Immature granulocytes/100 WB C Auto (Bld)Ordered By: Gregg Powers on 02-19-2025 Immature granulocytes/100 WBC (Bld) 0.600 % 0.0-0.[address] [facility] Comment on above: IG% - Immature Granu locytes (promyelocytes, myelocytes and metamyelocytes) > 1% indicates that a LEFT SHIFT is Present. Internal Medicine Office Vis itoluis antonio 02-19-2025 Internal Medicine Office Visit [facility] [address] [place] [address] [place] [address] OFFICE VISIT Date of Service: 02/19/25 MR#: [id number] Acct: [id number] Name: FLORENCE CHOUDHARY Rep #: [id number] : 1955 Provider: Dr. Gregg fowler MD Age/Sex: 69/M [place] [facility] Status: Signed Intake Vital Signs 08/21/24 11:12 02/19/25 13:00 Height 6 ft 4 in 6 ft 4 in Weight: 195 lb BMI 23.7 BP 140/80 H Blood Pressure Location Lt brachial Position Sitting Respiration 18 Pulse 60 Pulse Source Monitor Temp 97.1 F L Temp Source Temporal Pulse Oximetry (%) 99 Oxygen Delivery Method room air Intake Visit Reasons: 6 M FU Chief Complaint: 6 M FU Is patient in pain?: No Allergies No Known Allergies Allergy (Verified 02/19/25 12:59) Medications ???Medication ???Instructions ???Recorded ???Confirmed ???Type acetaminophen 325 mg capsule 325 mg PO ONCE PRN Pain 07/21/22 0 02/19/25 History (Tylenol) vitamin B complex 1 tab PO DAILY 09/18/22 02/19/25 H istory ibuprofen 200 mg capsule 200 mg PO Q6H PRN Pain 04/12/23 History vitamin D3 1,250 mcg (50,000 cap PO For hip replacement 4 02/19/25 History unit)-vitamin K2 200 mcg capsule allopurinol 300 mg tablet 300 mg PO DAILY #90 tabs 02/19/25 02/19/25 Rx hydrochlorothiazide 25 mg tablet 25 mg PO DAILY #90 tabs 02/19/25 0 02/19/25 Rx olmesartan 5 mg tablet 5 mg PO DAILY #90 tabs 02/19/25 Rx Have you fallen in the past year?: No PFSH Medical History Health care maintenance History of prostate cancer Hypertension Hyperlipidemia Back pain Non-smoker Leg cramps History of edema Abdominal pain Left flank pain Wears glasses Cancer Arthritis Injury of head and neck Asthma History of rheumatic fever Preoperative clearance Osteoarthritis Encounter for preventative adult health care examination Kidney stones History of asthma Rosacea Elevated PSA Gout Surgical History History of hip replacement (08/06/22) History of colonoscopy (04/01/23) Hx of transurethral resection of prostate Hx of total hip arthroplasty History of vasectomy History of tonsillectomy Family History Mother Hypertension Social History adopted: No household members: spouse number of children: 4 current occupational status: retired current occupational exposures/hazards: No pets and animals: No leisure activities: sports, exercise, music, games and volunteer work history of recent travel: No sexually active: Yes Smoking Status: Never smoker second hand exposure: Yes (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19, 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.) alcohol intake: never substance use type: does not use well-balanced diet: daily or most days caffeine: Yes (Occasionally - I do drink soft drinks and coffee, which is mostly decaf.) Type: carbonated beverages and coffee eating out: 1-3 times/week during the past year weight has: remained stable what type of physical activity do you participate in: walking, bicycling, weight training and other details: basketball frequency: 3-4 times per week duration: 60-90 minutes/day faustino/shinto: jain seatbelt use: always do you feel safe at home: Yes HPI HPI Chief Complaint: 6 M FU Details: FLORENCE CHOUDHARY, is a 69 M who presents to the office today for follow-up of his chronic medical conditions. No acute concerns at this time. History of hypertension, blood pressure today is at 140/80. He states that he has been checking it at home and on average his readings have been in the 130s over 80s. Has had poor sleep lately due to his [id number] who has dementia and who currently lives with them. Stays active. Taking medication as prescribed. Other chronic medical conditions are stable. ROS Const Constitutional: No body ache, chills, excessive sweating, fatigue, fever(s), frequent falls, headache(s), snoring, weight change, sleep problems, abnormal sleep pattern or change in appetite Eyes Eyes: No blurry vision, change in vision, eye pain or Light sensitivity ENT ENT: No abnormal hearing, ear or mastoid pain, tinnitus, nasal congestion, headache(s), neck pain or sore throat Resp Respiratory: No cough, shortness of breath, snoring or wheezing Cardio Cardiology: No chest pain at rest, chest pain with exertion, excessive sweating, shortness of breath, dyspnea on exertion, lightheadedness, orthopnea or palpitations Gastro GI: No abdominal pain, change in bowel habits, constipation, cramping, diarrhea, nausea/dyspepsia or vomiting Genitourinary Male: N (more content not included)... Normal [facility] LDL calc ser/plasOrdered By: Gregg Powers on 02-19-2025 LDL Cholesterol, Calculated 114 mg/dL [facility] Comment on above: Epzkoqduia=734-550 m g/dL & Higher Mbxx=724 mg/dL or greater Laboratory - Chemistry and C hemistry - challengeOrdered By: Gregg Powers on 02-19-2025 AST [Catalytic activity/Vol] 21 U/L <[address] [facility] Lipid Profileon 02-19-2025 CHOL:HDL 4.[address] [facility] Comment on above: Performed By: #### L 501.1400, L500.4100, L500.4050, L100.0100 #### [facility] [address] [place], [address] Cholesterol [Mass/Vol] 207 mg/dL High <=200 [facility] Comment on above: Result Comment: Chol esterol level, Desirable <200 mg/dL Borderline high cholesterol 200-239 mg/dL High cholesterol >=240 mg/dL Recommendations of the NCEP Adult Treatment Panel for the following risk-cutoff thresholds for the [place] population. Performed By: #### L 501.1400, L500.4100, L500.4050, L100.0100 #### [facility] [address] [place], [address] Cholesterol in HDL [Mass/Vol] 44 mg/dL Normal [facility] Comment on above: Result Comment: Consuelo onal Cholesterol Education Program (NCEP) guidelines: <40 mg/dL: Low HDL-cholesterol (major risk factor for CHD) >= 60 mg/dL: High HDL-cholesterol (negative risk factor for CHD) HDL-cholesterol is affected by a number of factors, e.g. smoking, exercise, hormones, sex and age. Performed By: #### L 501.1400, L500.4100, L500.4050, L100.0100 #### [facility] [address] [place], [address] Cholesterol in LDL [Mass/Vol] 114 mg/dL Normal [facility] Comment on above: Result Comment: Bord zkfhuc=529-026 mg/dL Higher Orkd=866 mg/dL or greater Performed By: #### L 501.1400, L500.4100, L500.4050, L100.0100 #### [facility] [address] [place], [address] Cholesterol in VLDL [Mass/Vol] 48 mg/dL High 5-[address] [facility] Comment on above: Performed By: #### L 501.1400, L500.4100, L500.4050, L100.0100 #### [facility] [address] [place], [address] Triglyceride [Mass/Vol] 242 mg/dL High [facility] Comment on above: Result Comment: The drugs N-Acetylcysteine and Metamizole may falsely depress this assay. Normal range: <150 mg/dL Borderline High: 150-199 mg/dL High: 200-499 mg/dL Very High: >500 mg/dL Performed By: #### L 501.1400, L500.4100, L500.4050, L100.0100 #### [facility] [address] [place], [address] Lymphocytes Auto (Unsp spec) [#/Vol]Ordered By: Gregg Powers on 02-19-2025 Lymphocytes (Bld) [#/Vol] 2.35 10*3/uL 0.83-4.[address] [facility] Lymphocytes/100 WBC Auto (Un sp spec)Ordered By: Gregg Powers on 02-19-2025 Lymphocytes/100 WBC (Bld) 23.5 % 19-[address] [facility] MCV (mean corpuscular volume ) determinationOrdered By: Gregg Powers on 02-19-2025 MCV (RBC) [Entitic vol] 99.5 fL High 80-94 [facility] Mean corpuscular hemoglobin (MCH) determinationOrdered By: Gregg Powers on 02-19-2025 MCH (RBC) [Entitic mass] 33.8 pg High 27.0-32.[address] [facility] Mean corpuscular hemoglobin concentration (MCHC) determinationOrdered By: Gregg Powers on 02-19-2025 MCHC (RBC) [Mass/Vol] 34.0 g/dL 32-36 [facility] Mean platelet volume determi nationOrdered By: Gregg Powers on 02-19-2025 Platelet mean volume (Bld) [Entitic vol] 9.2 fL 6.2-12.[address] [facility] Monocyte percentageOrdered B y: Gregg Powers on 02-19-2025 Monocytes/100 WBC (Bld) 6.3 % 0-10 [facility] Neutrophil percentageOrdered By: Gregg Powers on 02-19-2025 Neutrophils/100 WBC (Bld) 66.9 % 47-[address] [facility] Nucleated red blood cell per centageOrdered By: Gregg Powers on 02-19-2025 Nucleated RBC/100 WBC (Bld) [Ratio] 0 % 0-[address] [facility] Platelet countOrdered By: Remi Powers on 02-19-2025 Platelets (Bld) [#/Vol] 313 10*3/uL 150-[address] [facility] Potassium (Unsp spec) [Mass/ Vol]Ordered By: Gregg Powers on 02-19-2025 Potassium [Moles/Vol] 4.7 mmol/L 3.3-5.1 [facility] RBC Auto (Bld) [#/Vol]Ordere d By: Gregg Powers on 02-19-2025 RBC (Bld) [#/Vol] 4.11 10*6/uL Low 4.6-6.2 [facility] Screening total cholesterol/ high density lipoprotein (HDL) cholesterol ratioOrdered By: Gregg Powers on 02-19-2025 Cholesterol.total/Cholest holly in HDL [Mass ratio] 4.67 {ratio} [facility] Serum creatinine measurement (mass/volume)Ordered By: Gregg Powers on 02-19-2025 Creatinine [Mass/Vol] 1.04 mg/dL 0.70-1.20 [facility] Serum globulin measurementOr dered By: Gregg Powers on 02-19-2025 Globulin (S) [Mass/Vol] 2.8 g/dL 2.2-4.2 [facility] Serum glucose measurement (m ass/volume)Ordered By: Gregg Powers on 02-19-2025 Glucose [Mass/Vol] 110 mg/dL High 70-99 [facility] Serum or plasma alanine christian otransferase (ALT) measurementOrdered By: Gregg Powers on 02-19-2025 ALT [Catalytic activity/Vol] 15 U/L <[address] [facility] Serum or plasma albumin dana urement (mass/volume)Ordered By: Gregg Powesr on 02-19-2025 Albumin [Mass/Vol] 4.4 g/dL 3.4-4.8 [facility] Serum or plasma albumin/glob ulin mass ratioOrdered By: Gregg Powers on 02-19-2025 Albumin/Globulin [Mass ratio] 1.6 {ratio} 0.9-2.[address] [facility] Serum or plasma alkaline skyla sphatase measurementOrdered By: Gregg Powers on 02-19-2025 ALP [Catalytic activity/Vol] 90 U/L 40-[address] [facility] Serum or plasma calcium dana urement (mass/volume)Ordered By: Gregg Powers on 02-19-2025 Calcium [Mass/Vol] 9.7 mg/dL 7.6-11.0 [facility] Serum or plasma cholesterol in HDL measurement (mass/volume)Ordered By: Gregg Powers on 02-19-2025 Cholesterol in HDL [Mass/Vol] 44 mg/dL >[address] [facility] Comment on above: National Cholesterol Education Program (NCEP) guidelines:<40 mg/dL: Low HDL-cholesterol (major risk factor for CHD)>= 60 mg/dL: High HDL-cholesterol (negative risk factor for CHD)HDL-cholesterol is affected by a number of factors, e.g. smoking, exercise, hormones, sex and age. Serum or plasma cholesterol measurement (mass/volume)Ordered By: Gregg Powers on 02-19-2025 Cholesterol [Mass/Vol] 207 mg/dL High <201 [facility] Comment on above: Cholesterol level, D esirable <200 mg/dLBorderline high cholesterol 200-239 mg/dLHigh cholesterol >=240 mg/dLRecommendations of the NCEP Adult Treatment Panel for the following risk-cutoff thresholds for the [place] population. Serum or plasma urea nitroge n measurement (mass/volume)Ordered By: Remicallumruchidarcy Smithnelsonkatelyn on 02-19-2025 Urea nitrogen [Mass/Vol] 17 mg/dL 4-[address] [facility] Serum or plasma uric acid me asurement (mass/volume)Ordered By: Remirobert Smithnelsonkatelyn on 02-19-2025 Urate [Mass/Vol] 6.2 mg/dL 3.5-7.[address] [facility] Comment on above: The drugs N-Acetylcy steine and Metamizole may falsely depress this assay. Sodium levelOrdered By: Jeff jordan Luisnelsonkatelyn on 02-19-2025 Sodium [Moles/Vol] 137 mmol/L 133-145 [facility] Total proteinOrdered By: Samir berry Luisnelsonkatelyn on 02-19-2025 Protein [Mass/Vol] 7.2 g/dL 5.9-8.4 [facility] Triglycerides measurementOrd ered By: Gregg Luischristiano on 02-19-2025 Triglyceride [Mass/Vol] 242 mg/dL High <199 [facility] Comment on above: The drugs N-Acetylcy steine and Metamizole may falsely depress this assay. Normal range: <150 mg/dLBorderline High: 150-199 mg/dLHigh: 200-499 mg/dLVery High: >500 mg/dL Uric Acidon 02-19-2025 URIC 6.2 mg/dL Normal 3.5-7.[address] [facility] Comment on above: Result Comment: The drugs N-Acetylcysteine and Metamizole may falsely depress this assay. Performed By: #### L 501.1400, L500.4100, L500.4050, L100.0100 #### [facility] [address] [place], [address] White blood cell (WBC) count Ordered By: Gregg Powers on 02-19-2025 WBC (Bld) [#/Vol] 10.0 10*3/uL 4.4-11.0 [facility] Basic Metabolic Profile (BMP )on 08-21-2024 BUN/CRE 17.6 RATIO Normal 10-[address] [facility] Comment on above: Performed By: #### L 500.2500 #### [facility] [address] [place], [address] CA,Total 10.0 mg/dL Normal 8.5-10.[address] [facility] Comment on above: Performed By: #### L 500.2500 #### [facility] [address] [place], [address] Chloride [Moles/Vol] 105 mmol/L Normal 98-107 [facility] Comment on above: Performed By: #### L 500.2500 #### [facility] [address] [place], [address] CO2 [Moles/Vol] 29.0 mmol/L Normal 21.0-32.[address] [facility] Comment on above: Performed By: #### L 500.2500 #### [facility] [address] [place], [address] Creatinine [Mass/Vol] 1.02 mg/dL Normal 0.70-1.30 [facility] Comment on above: Result Comment: The validity of the calculated GFR GFRAA in patients over 70 years has not been determined. Clinical correlation is essential. Performed By: #### L 500.2500 #### [facility] [address] [place], [address] EST GFR - AA 93 mL/min Normal >[address] [facility] Comment on above: Result Comment: Afri can Cymro GFR Calc Performed By: #### L 500.2500 #### [facility] [address] [place], [address] GAP 6 Normal 5-[address] [facility] Comment on above: Performed By: #### L 500.2500 #### [facility] [address] [place], [address] GFR/1.73 sq M.predicted among non-blacks MDRD (S/P/Bld) [Vol rate/Area] 77 mL/min/{1.73_m2} Normal >60 [facility] Comment on above: Result Comment: Non- GFR Calc Performed By: #### L 500.2500 #### [facility] [address] [place], [address] Glucose [Mass/Vol] 95 mg/dL Normal 74-106 [facility] Comment on above: Performed By: #### L 500.2500 #### [facility] [address] [place], [address] Potassium [Moles/Vol] 4.2 mmol/L Normal 3.5-5.1 [facility] Comment on above: Performed By: #### L 500.2500 #### [facility] [address] [place], [address] Sodium [Moles/Vol] 140 mmol/L Normal 136-145 [facility] Comment on above: Performed By: #### L 500.2500 #### [facility] [address] [place], [address] Urea nitrogen [Mass/Vol] 18 mg/dL Normal 7-[address] [facility] Comment on above: Performed By: #### L 500.2500 #### [facility] [address] [place], [address] Internal Medicine Office Vis ying 08-21-2024 Internal Medicine Office Visit [facility] [address] [place] [address] [place] [address] OFFICE VISIT Date of Service: 08/21/24 MR#: [id number] Acct: [id number] Name: FLORENCE CHOUDHARY Rep #: [id number] : 1955 Provider: Dr. 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 Is patient in pain?: No Allergies No Known Allergies Allergy (Verified 08/21/24 11:08) Medications ???Medication ???Instructions ???Recorded ???Confirmed ???Type acetaminophen 325 mg capsule 325 mg PO ONCE PRN Pain 07/21/22 08/21/24 History (Tylenol) vitamin B complex 1 tab PO DAILY 09/18/22 08/21/24 History ibuprofen 200 mg capsule 200 mg PO Q6H PRN Pain 04/12/23 08/21/24 History vitamin D3 1,250 mcg (50,000 cap PO For hip replacement 04/06/24 08/21/24 History unit)-vitamin K2 200 mcg capsule allopurinol 300 mg tablet 300 mg PO DAILY #90 tabs 04/11/24 08/21/24 Rx hydrochlorothiazide 25 mg tablet 25 mg PO DAILY #90 tabs 06/05/24 08/21/24 Rx olmesartan 5 mg tablet 5 mg PO DAILY #90 tabs 06/26/24 08/21/24 Rx Have you fallen in the past year?: No PFSH Medical History Health care maintenance History of prostate cancer Hypertension Hyperlipidemia Back pain Non-smoker Leg cramps History of edema Abdominal pain Left flank pain Wears glasses Cancer Arthritis Injury of head and neck Asthma History of rheumatic fever Preoperative clearance Osteoarthritis Encounter for preventative adult health care examination Kidney stones History of asthma Rosacea Elevated PSA Gout Surgical History History of hip replacement (08/06/22) History of colonoscopy (04/01/23) Hx of transurethral resection of prostate Hx of total hip arthroplasty History of vasectomy History of tonsillectomy Family History Mother Hypertension Social History adopted: No household members: spouse number of children: 4 current occupational status: retired current occupational exposures/hazards: No pets and animals: No leisure activities: sports, exercise, music, games and volunteer work history of recent travel: No sexually active: Yes Smoking Status: Never smoker second hand exposure: Yes (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19, 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.) alcohol intake: never substance use type: does not use well-balanced diet: daily or most days caffeine: Yes (Occasionally - I do drink soft drinks and coffee, which is mostly decaf.) Type: carbonated beverages and coffee eating out: 1-3 times/week during the past year weight has: remained stable what type of physical activity do you participate in: walking, bicycling, weight training and other details: basketball frequency: 3-4 times per week duration: 60-90 minutes/day faustino/shinto: jain seatbelt use: always do you feel safe at home: Yes HPI HPI Chief Complaint: Follow-up hypertension Details: FLORENCE CHOUDHARY, is a 69 M who presents to the office today for follow-up. No acute concerns at this time. Doing well on current regimen. He states that he checked his numbers a few occasions at home and his readings were similar to reading in office. No chest pain, palpitation or shortness of breath. Other chronic medical conditions are stable. ROS Const Constitutional: No body ache, chills, excessive sweating, fatigue, fever(s), frequent falls, headache(s), snoring, weakness, sleep problems or change in appetite Eyes Eyes: No blurry vision, change in vision, bulging eyes, floaters, visual disturbances, eye pain or Light sensitivity ENT ENT: No abnormal hearing, ear or mastoid pain, tinnitus, balance problems, nosebleed/epistaxis , nasal congestion, headache(s), neck pain or sore throat Resp Respiratory: No cough, excessive phlegm production, pain on inspiration, shortness of breath, snoring or wheezing Cardio Cardiology: No chest pain at rest, chest pain with exertion, excessive sweating, shortness of breath, dyspnea on exertion, lightheadedness, orthopnea or palpitations Gastro GI: No abdominal pain, change in (more content not included)... Normal [facility] No Panel InformationOrdered By: Eitan Patterson on 11-05-2023 Prostate Specific Antigen Total 7.33 ng/mL 0.0-4.[address] [facility] Comment on above: This test was perfor med using the TPSA assay method for Perceptive Pixel chemistry system. Values obtained with differentassay methods cannot be used interchangably.When changing PSA assays in the course of monitoring apatient, additional sequential testing should be carriedout to confirm baseline values. Basophil percentageOrdered B y: Dr. Powers on 04-12-2023 Basophil percentage 0-5 SEEN /hpf 0-5 [facility] Bilirubin Test strip Ql (U)O rdered By: Dr. Powers on 04-12-2023 Bilirubin Ql (U) Negative Negative [facility] Ketones Test strip Ql (U)Ord ered By: Dr. Powers on 04-12-2023 Ketones Ql (U) 5 mg/dl Negative [facility] Mucus LM Ql (Urine sed)Order ed By: Dr. Powers on 04-12-2023 Mucus Ql (Urine sed) 0 SEEN /hpf [facility] Nitrite Test strip Ql (U)Ord ered By: Dr. Powers on 04-12-2023 Nitrite Ql (U) Negative Negative [facility] Protein Test strip Ql (U)Ord ered By: Dr. Powers on 04-12-2023 Protein Ql (U) 100 mg/dl Negative [facility] Squamous epithelial cells de tection in urine sediment by light microscopyOrdered By: Dr. Powers on 04-12-2023 Epithelial cells.squamous LM Ql (Urine sed) 0 SEEN /hpf 0-[address] [facility] Urine blood detectionOrdered By: Dr. Powers on 04-12-2023 RBC Ql (U) 50 /ul Negative [facility] RBC Ql (U) 10-25 SEEN /hpf 0-[address] [facility] Urine clarityOrdered By: Dr. Powers on 04-12-2023 Clarity (U) Clear Clear [facility] Urine color determinationOrd ered By: Dr. Powers on 04-12-2023 Color (U) Yellow Yellow [facility] Urine glucose detectionOrder ed By: Dr. Powers on 04-12-2023 Glucose Ql (U) Normal mg/dl Normal [facility] Urine leukocyte esterase det ection by dipstickOrdered By: Dr. Powers on 04-12-2023 Leukocyte esterase Test strip Ql (U) 25 /ul Negative [facility] Urine pHOrdered By: Dr. José Manuel mcgraw on 04-12-2023 pH (U) 5.0 [pH] 5.0 - 8.[address] [facility] Urine sediment bacteria coun t by microscopy (number/high power field)Ordered By: Dr. Powers on 04-12-2023 Bacteria LM.HPF (Urine sed) [#/Area] RARE /hpf None Seen [facility] Urine specific gravity measu rementOrdered By: Dr. Powers on 04-12-2023 Specific gravity (U) [Rel density] 1.025 1.002-1.[address] [facility] Urobilinogen Auto test strip Ql (U)Ordered By: Dr. Powers on 04-12-2023 Urobilinogen Ql (U) Normal mg/dl Normal [facility] Absolute lymphocyte countOrd ered By: Joon Phillip on 02-17-2023 Lymphocytes Auto (Unsp spec) [#/Vol] 2.42 10*3/uL 0.83-4.[address] [facility] Basophil percentageOrdered B y: Joon Phillip on 02-17-2023 Basophils/100 WBC (Bld) 0.6 % 0-1 [facility] Bilirubin [Mass/Vol] 0.70 mg/dL 0.20-1.00 [facility] Comment on above: For patients on eltr ombopag therapy, use of Dimension [place] TBIL is not recommended. Chloride [Moles/Vol] 108 mmol/L 98-107 [facility] Cholesterol [Mass/Vol] 200 mg/dL <200 [facility] Comment on above: <200 mg/dL Desirable 200-240 mg/dL Borderline >240 mg/dL High Risk Eosinophils/100 WBC (Bld) 2.3 % 0-[address] [facility] Glucose [Mass/Vol] 92 mg/dL 74-106 [facility] Neutrophils (Bld) [#/Vol] 3.8 10*3/uL 2.0-7.[address] [facility] Neutrophils/100 WBC (Bld) 54.8 % 47-[address] [facility] Potassium [Moles/Vol] 4.5 mmol/L 3.5-5.1 [facility] Protein [Mass/Vol] 7.1 g/dL 6.4-8.2 [facility] Sodium [Moles/Vol] 143 mmol/L 136-145 [facility] Triglyceride [Mass/Vol] 101 mg/dL <199 [facility] Comment on above: The drugs N-Acetylcy steine and Metamizole may falsely depress this assay.Serum Triglycerides Reference Interval Normal <150 mg/dL Borderline high 150 - 199 mg/dL High 200 - 499 mg/dL Very High > or = 500 mg/dL WBC (Bld) [#/Vol] 6.9 10*3/uL 4.4-11.0 [facility] Blood erythrocytes count (nu mber/volume)Ordered By: Joon Phillip on 02-17-2023 RBC (Bld) [#/Vol] 4.55 10*6/uL 4.6-6.2 [facility] Blood hemoglobin measurement (mass/volume)Ordered By: Joon Phillip on 02-17-2023 Hemoglobin (Bld) [Mass/Vol] 15.0 g/dL 13.0-16.[address] [facility] Blood lymphocytes/100 leukoc ytesOrdered By: Joon Phillip on 02-17-2023 Lymphocytes/100 WBC (Bld) 35.1 % 19-[address] [facility] Blood monocytes/100 leukocyt esOrdered By: Joon Phillip on 02-17-2023 Monocytes/100 WBC (Bld) 6.8 % 0-10 [facility] Blood platelet mean volumeOr dered By: Joon Phillip on 02-17-2023 Platelet mean volume (Bld) [Entitic vol] 9.4 fL 6.2-12.[address] [facility] Determination of erythrocyte mean corpuscular volume (MCV)Ordered By: Joon Phillip on 02-17-2023 MCV (RBC) [Entitic vol] 100.9 fL 80-94 [facility] Hematocrit Auto (Bld) [Volum e fraction]Ordered By: Joon Phillip on 02-17-2023 Hematocrit (Bld) [Volume fraction] 45.9 % 40-[address] [facility] Laboratory - Chemistry and C hemistry - challengeOrdered By: Joon Phillip on 02-17-2023 ALP [Catalytic activity/Vol] 80 U/L 45-[address] [facility] ALT [Catalytic activity/Vol] 24 U/L 16-[address] [facility] CO2 [Moles/Vol] 30.0 mmol/L 21.0-32.[address] [facility] Globulin (S) [Mass/Vol] 3.2 g/dL 2.2-4.2 [facility] Urea nitrogen/Creatinine [Mass ratio] 18.6 mg/mg 10-[address] [facility] Laboratory - Hematology and Cell countsOrdered By: Joon Phillip on 02-17-2023 Erythrocyte distribution width (RBC) [Entitic vol] 47.4 fL 35.1-43.9 [facility] Erythrocyte distribution width (RBC) [Ratio] 12.6 % 11.6-14.[address] [facility] Immature granulocytes/100 WBC (Bld) 0.400 % 0.0-0.[address] [facility] Comment on above: IG% - Immature Granu locytes (promyelocytes, myelocytes and metamyelocytes) > 1% indicates that a LEFT SHIFT is Present. MCH (RBC) [Entitic mass] 33.0 pg 27.0-32.[address] [facility] Nucleated RBC/100 WBC (Bld) [Ratio] 0 % 0-[address] [facility] MCHC Auto (RBC) [Mass/Vol]Or dered By: Joon Phillip on 02-17-2023 MCHC (RBC) [Mass/Vol] 32.7 g/dL 32-36 [facility] No Panel InformationOrdered By: Joon Phillip on 02-17-2023 Estimated GFR (MDRD) Amer 113 mL/min >[address] [facility] Comment on above: GFR Calc Estimated GFR (MDRD) Non-Af Amer 93 mL/min >[address] [facility] Comment on above: Non- GFR Calc Thyroid Stimulating Hormone (TSH) 1.67 uIU/mL 0.358-3.[address] [facility] Platelets bldOrdered By: Chantelle Phillip on 02-17-2023 Platelets (Bld) [#/Vol] 283 10*3/uL 150-[address] [facility] Serum or plasma albumin dana urement (mass/volume)Ordered By: Joon Phillip on 02-17-2023 Albumin [Mass/Vol] 3.9 g/dL 3.2-5.0 [facility] Serum or plasma albumin/glob ulin mass ratioOrdered By: Joon Phillip on 02-17-2023 Albumin/Globulin [Mass ratio] 1.2 {ratio} 0.9-2.[address] [facility] Serum or plasma calcium dana urement (mass/volume)Ordered By: Joon Phillip on 02-17-2023 Calcium [Mass/Vol] 9.5 mg/dL 8.5-10.1 [facility] Serum or plasma cholesterol in HDL measurement (mass/volume)Ordered By: Joon Phillip on 02-17-2023 Cholesterol in HDL [Mass/Vol] 55 mg/dL >[address] [facility] Comment on above: The drugs N-Acetylcy steine and Metamizole may falsely depress this assay. Reference Range HDL <40 mg/dL Low HDL Cholesterol HDL >or= 60 mg/dL High HDL Cholesterol Serum or plasma cholesterol in VLDL measurement (mass/volume)Ordered By: Joon Phillip on 02-17-2023 Cholesterol in VLDL [Mass/Vol] 20 mg/dL 5-[address] [facility] Serum or plasma creatinine m easurement (mass/volume)Ordered By: Joon Phillip on 02-17-2023 Creatinine [Mass/Vol] 0.86 mg/dL 0.70-1.30 [facility] Comment on above: The validity of the calculated GFR & GFRAA in patients over 70 years has not been determined. Clinical correlation is essential. Serum or plasma low density lipoprotein (LDL) cholesterol measurement (mass/volume)Ordered By: Joon Phillip on 02-17-2023 Cholesterol in LDL [Mass/Vol] 125 mg/dL 0-[address] [facility] Serum or plasma urea nitroge n measurement (mass/volume)Ordered By: Joon Phillip on 02-17-2023 Urea nitrogen [Mass/Vol] 16 mg/dL 7-[address] [facility] Thin prep Papanicolaou smear with manual screeningOrdered By: Joon Phillip on 02-17-2023 Thin prep Papanicolaou smear with manual screening 16 U/L 15-[address] [facility] Thin prep Papanicolaou smear with manual screening 5 5-[address] [facility] No Panel InformationOrdered By: Dr. Patterson on 01-29-2023 Prostate Specific Antigen Total 8.67 ng/mL 0.0-4.[address] [facility] Comment on above: This test was perfor med using the TPSA assay method for Per[employer] Pixel chemistry system. Values obtained with differentassay methods cannot be used interchangably.When changing PSA assays in the course of monitoring apatient, additional sequential testing should be carriedout to confirm baseline values. Absolute lymphocyte counton 09-02-2022 Lymphocytes Auto (Unsp spec) [#/Vol] 1.88 10*3/uL 0.83-4.[address] [facility] Work Phone: Basophil percentageon 2021 Basophils/100 WBC (Bld) 0.2 % 0-1 [facility] Work Phone: [phone] Chloride [Moles/Vol] 107 mmol/L 98-107 [facility] Work Phone: Eosinophils/100 WBC (Bld) 1.9 % 0-[address] [facility] Work Phone: Glucose [Mass/Vol] 93 mg/dL 74-106 [facility] Work Phone: Neutrophils (Bld) [#/Vol] 6.8 10*3/uL 2.0-7.[address] [facility] Work Phone: Neutrophils/100 WBC (Bld) 71.6 % 47-[address] [facility] Work Phone: [phone] Potassium [Moles/Vol] 4.4 mmol/L 3.5-5.1 [facility] Work Phone: Sodium [Moles/Vol] 141 mmol/L 136-145 [facility] Work Phone: WBC (Bld) [#/Vol] 9.5 10*3/uL 4.4-11.0 [facility] Work Phone: Blood erythrocytes count (nu mber/volume)on 09-02-2022 RBC (Bld) [#/Vol] 3.82 10*6/uL 4.6-6.2 [facility] Work Phone: Blood hemoglobin measurement (mass/volume)on 09-02-2022 Hemoglobin (Bld) [Mass/Vol] 12.6 g/dL 13.0-16.[address] [facility] Work Phone: Blood lymphocytes/100 leukoc yteson 09-02-2022 Lymphocytes/100 WBC (Bld) 19.9 % 19-[address] [facility] Work Phone: Blood monocytes/100 leukocyt eson 09-02-2022 Monocytes/100 WBC (Bld) 5.9 % 0-10 [facility] Work Phone: Blood platelet mean volumeon 09-02-2022 Platelet mean volume (Bld) [Entitic vol] 8.9 fL 6.2-12.[address] [facility] Work Phone: Determination of erythrocyte mean corpuscular volume (MCV)on 09-02-2022 MCV (RBC) [Entitic vol] 103.4 fL 80-94 [facility] Work Phone: Hematocrit Auto (Bld) [Volum e fraction]on 09-02-2022 Hematocrit (Bld) [Volume fraction] 39.5 % 40-[address] [facility] Work Phone: Laboratory - Chemistry and C hemistry - challengeon 09-02-2022 CO2 [Moles/Vol] 29.0 mmol/L 21.0-32.[address] [facility] Work Phone: Cobalamin (Vitamin B12) [Mass/Vol] 301 pg/mL 211-[address] [facility] Work Phone: Urea nitrogen/Creatinine [Mass ratio] 13.5 mg/mg 10-[address] [facility] Work Phone: Laboratory - Hematology and Cell countson 09-02-2022 Erythrocyte distribution width (RBC) [Entitic vol] 47.2 fL 35.1-43.9 [facility] Work Phone: Erythrocyte distribution width (RBC) [Ratio] 12.6 % 11.6-14.[address] [facility] Work Phone: Immature granulocytes/100 WBC (Bld) 0.500 % 0.0-0.[address] [facility] Work Phone: Comment on above: IG% - Immature Granu locytes (promyelocytes, myelocytes and metamyelocytes) > 1% indicates that a LEFT SHIFT is Present. MCH (RBC) [Entitic mass] 33.0 pg 27.0-32.[address] [facility] Work Phone: Nucleated RBC/100 WBC (Bld) [Ratio] 0 % 0-[address] [facility] Work Phone: MCHC Auto (RBC) [Mass/Vol]on 09-02-2022 MCHC (RBC) [Mass/Vol] 31.9 g/dL 32-36 [facility] Work Phone: No Panel Informationon 09-02 Estimated GFR (MDRD) Amer 109 mL/min >[address] [facility] Work Phone: Comment on above: GFR Calc Estimated GFR (MDRD) Non-Af Amer 90 mL/min >[address] [facility] Work Phone: Comment on above: Non- GFR Calc Platelets bldon 09-02-2022 Platelets (Bld) [#/Vol] 353 10*3/uL 150-[address] [facility] Work Phone: Serum or plasma calcium dana urement (mass/volume)on 09-02-2022 Calcium [Mass/Vol] 9.5 mg/dL 8.5-10.1 [facility] Work Phone: Serum or plasma creatinine m easurement (mass/volume)on 09-02-2022 Creatinine [Mass/Vol] 0.89 mg/dL 0.70-1.30 [facility] Work Phone: Comment on above: The validity of the calculated GFR & GFRAA in patients over 70 years has not been determined. Clinical correlation is essential. Serum or plasma folate measu rement (mass/volume)on 09-02-2022 Folate [Mass/Vol] 15.70 ng/mL 3.1-55.4 [facility] Work Phone: Serum or plasma urea nitroge n measurement (mass/volume)on 09-02-2022 Urea nitrogen [Mass/Vol] 12 mg/dL 7-[address] [facility] Work Phone: Thin prep Papanicolaou smear with manual screeningon 09-02-2022 Thin prep Papanicolaou smear with manual screening 5 5-[address] [facility] Work Phone: Absolute lymphocyte counton 08-19-2022 Lymphocytes Auto (Unsp spec) [#/Vol] 2.73 10*3/uL 0.83-4.[address] [facility] Work Phone: [phone] Basophil percentageon 2021 Basophil percentage 0-5 SEEN /hpf 0-5 [facility] Work Phone: Basophils/100 WBC (Bld) 0.7 % 0-1 [facility] Work Phone: Chloride [Moles/Vol] 103 mmol/L 98-107 [facility] Work Phone: Eosinophils/100 WBC (Bld) 1.7 % 0-[address] [facility] Work Phone: Glucose [Mass/Vol] 93 mg/dL 74-106 [facility] Work Phone: Neutrophils (Bld) [#/Vol] 10.1 10*3/uL 2.0-7.[address] [facility] Work Phone: Neutrophils/100 WBC (Bld) 71.4 % 47-[address] [facility] Work Phone: Potassium [Moles/Vol] 4.7 mmol/L 3.5-5.1 [facility] Work Phone: Sodium [Moles/Vol] 138 mmol/L 136-145 [facility] Work Phone: WBC (Bld) [#/Vol] 14.2 10*3/uL 4.4-11.0 [facility] Work Phone: Bilirubin Test strip Ql (U)o n 08-19-2022 Bilirubin Ql (U) Negative Negative [facility] Work Phone: Blood erythrocytes count (nu mber/volume)on 08-19-2022 RBC (Bld) [#/Vol] 3.65 10*6/uL 4.6-6.2 [facility] Work Phone: Blood hemoglobin measurement (mass/volume)on 08-19-2022 Hemoglobin (Bld) [Mass/Vol] 12.4 g/dL 13.0-16.[address] [facility] Work Phone: Blood lymphocytes/100 leukoc yteson 08-19-2022 Lymphocytes/100 WBC (Bld) 19.3 % 19-[address] [facility] Work Phone: Blood monocytes/100 leukocyt eson 08-19-2022 Monocytes/100 WBC (Bld) 5.6 % 0-10 [facility] Work Phone: Blood platelet mean volumeon 08-19-2022 Platelet mean volume (Bld) [Entitic vol] 8.7 fL 6.2-12.[address] [facility] Work Phone: Determination of erythrocyte mean corpuscular volume (MCV)on 08-19-2022 MCV (RBC) [Entitic vol] 104.7 fL 80-94 [facility] Work Phone: Hematocrit Auto (Bld) [Volum e fraction]on 08-19-2022 Hematocrit (Bld) [Volume fraction] 38.2 % 40-[address] [facility] Work Phone: Ketones Test strip Ql (U)on 08-19-2022 Ketones Ql (U) Negative Negative [facility] Work Phone: Laboratory - Chemistry and C hemistry - challengeon 08-19-2022 CO2 [Moles/Vol] 27.0 mmol/L 21.0-32.[address] [facility] Work Phone: Urea nitrogen/Creatinine [Mass ratio] 16.5 mg/mg 10-[address] [facility] Work Phone: Laboratory - Hematology and Cell countson 08-19-2022 Erythrocyte distribution width (RBC) [Entitic vol] 47.0 fL 35.1-43.9 [facility] Work Phone: Erythrocyte distribution width (RBC) [Ratio] 12.1 % 11.6-14.[address] [facility] Work Phone: Immature granulocytes/100 WBC (Bld) 1.300 % 0.0-0.[address] [facility] Work Phone: Comment on above: IG% - Immature Granu locytes (promyelocytes, myelocytes and metamyelocytes) > 1% indicates that a LEFT SHIFT is Present. MCH (RBC) [Entitic mass] 34.0 pg 27.0-32.[address] [facility] Work Phone: Nucleated RBC/100 WBC (Bld) [Ratio] 0.1 % 0-[address] [facility] Work Phone: MCHC Auto (RBC) [Mass/Vol]on 08-19-2022 MCHC (RBC) [Mass/Vol] 32.5 g/dL 32-36 [facility] Work Phone: Mucus LM Ql (Urine sed)on Mucus Ql (Urine sed) 0 SEEN /hpf [facility] Work Phone: Nitrite Test strip Ql (U)on 08-19-2022 Nitrite Ql (U) Negative Negative [facility] Work Phone: No Panel Informationon 08-19 Estimated GFR (MDRD) Amer 106 mL/min >[address] [facility] Work Phone: Comment on above: GFR Calc Estimated GFR (MDRD) Non-Af Amer 88 mL/min >[address] [facility] Work Phone: Comment on above: Non- GFR Calc Platelets bldon 08-19-2022 Platelets (Bld) [#/Vol] 546 10*3/uL 150-[address] [facility] Work Phone: Protein Test strip Ql (U)on 08-19-2022 Protein Ql (U) 30 mg/dl Negative [facility] Work Phone: Serum or plasma calcium dana urement (mass/volume)on 08-19-2022 Calcium [Mass/Vol] 9.4 mg/dL 8.5-10.1 [facility] Work Phone: Serum or plasma creatinine m easurement (mass/volume)on 08-19-2022 Creatinine [Mass/Vol] 0.91 mg/dL 0.70-1.30 [facility] Work Phone: Comment on above: The validity of the calculated GFR & GFRAA in patients over 70 years has not been determined. Clinical correlation is essential. Serum or plasma urea nitroge n measurement (mass/volume)on 08-19-2022 Urea nitrogen [Mass/Vol] 15 mg/dL 7-[address] [facility] Work Phone: Squamous epithelial cells de tection in urine sediment by light microscopyon 08-19-2022 Epithelial cells.squamous LM Ql (Urine sed) 0 SEEN /hpf 0-[address] [facility] Work Phone: Thin prep Papanicolaou smear with manual screeningon 08-19-2022 Thin prep Papanicolaou smear with manual screening 8 5-[address] [facility] Work Phone: Urine blood detectionon 07-31 RBC Ql (U) 250 /ul Negative [facility] Work Phone: RBC Ql (U) 0-5 SEEN /hpf 0-[address] [facility] Work Phone: Urine clarityon 08-19-2022 Clarity (U) Sl. Cloudy Clear [facility] Work Phone: Urine color determinationon 08-19-2022 Color (U) Yellow Yellow [facility] Work Phone: Urine glucose detectionon Glucose Ql (U) Normal mg/dl Normal [facility] Work Phone: Urine leukocyte esterase det ection by dipstickon 08-19-2022 Leukocyte esterase Test strip Ql (U) 100 /ul Negative [facility] Work Phone: Urine pHon 08-19-2022 pH (U) 6.0 [pH] 5.0 - 8.[address] [facility] Work Phone: Urine sediment bacteria coun t by microscopy (number/high power field)on 08-19-2022 Bacteria LM.HPF (Urine sed) [#/Area] RARE /hpf None Seen [facility] Work Phone: Urine specific gravity measu rementon 08-19-2022 Specific gravity (U) [Rel density] 1.015 1.002-1.[address] [facility] Work Phone: Urobilinogen Auto test strip Ql (U)on 08-19-2022 Urobilinogen Ql (U) Normal mg/dl Normal [facility] Work Phone: Basophil percentageon 2021 Chloride [Moles/Vol] 106 mmol/L 98-[address] [facility] Work Phone: Glucose [Mass/Vol] 99 mg/dL 74-106 [facility] Work Phone: Potassium [Moles/Vol] 4.0 mmol/L 3.5-5.1 [facility] Work Phone: Sodium [Moles/Vol] 138 mmol/L 136-145 [facility] Work Phone: Laboratory - Chemistry and C hemistry - challengeon 08-17-2022 CO2 [Moles/Vol] 24.0 mmol/L 21.0-32.[address] [facility] Work Phone: Urea nitrogen/Creatinine [Mass ratio] 16.6 mg/mg 10-[address] [facility] Work Phone: No Panel Informationon 08-17 Estimated Creatinine Clearance Calc 101.78 ml/min [facility] Work Phone: Estimated GFR (MDRD) Amer 116 mL/min >[address] [facility] Work Phone: Comment on above: GFR Calc Estimated GFR (MDRD) Non-Af Amer 96 mL/min >[address] [facility] Work Phone: Comment on above: Non- GFR Calc Serum or plasma calcium dana urement (mass/volume)on 08-17-2022 Calcium [Mass/Vol] 8.7 mg/dL 8.5-10.1 [facility] Work Phone: Serum or plasma creatinine m easurement (mass/volume)on 08-17-2022 Creatinine [Mass/Vol] 0.84 mg/dL 0.70-1.30 [facility] Work Phone: Comment on above: The validity of the calculated GFR & GFRAA in patients over 70 years has not been determined. Clinical correlation is essential. Serum or plasma urea nitroge n measurement (mass/volume)on 08-17-2022 Urea nitrogen [Mass/Vol] 14 mg/dL 7-[address] [facility] Work Phone: Thin prep Papanicolaou smear with manual screeningon 08-17-2022 Thin prep Papanicolaou smear with manual screening 8 5-[address] [facility] Work Phone: Absolute lymphocyte counton 08-16-2022 Lymphocytes Auto (Unsp spec) [#/Vol] 2.15 10*3/uL 0.83-4.[address] [facility] Work Phone: Basophil percentageon 2021 Basophils/100 WBC (Bld) 0.4 % 0-1 [facility] Work Phone: Eosinophils/100 WBC (Bld) 0.9 % 0-[address] [facility] Work Phone: Neutrophils (Bld) [#/Vol] 6.2 10*3/uL 2.0-7.[address] [facility] Work Phone: Neutrophils/100 WBC (Bld) 65.6 % 47-[address] [facility] Work Phone: WBC (Bld) [#/Vol] 9.5 10*3/uL 4.4-11.0 [facility]: Blood erythrocytes count (nu mber/volume)on 08-16-2022 RBC (Bld) [#/Vol] 3.20 10*6/uL 4.6-6.2 [facility]: Blood hemoglobin measurement (mass/volume)on 08-16-2022 Hemoglobin (Bld) [Mass/Vol] 10.6 g/dL 13.0-16.[address] [facility] Work Phone: Blood lymphocytes/100 leukoc yteson 08-16-2022 Lymphocytes/100 WBC (Bld) 22.6 % 19-[address] [facility] Work Phone: Blood monocytes/100 leukocyt eson 08-16-2022 Monocytes/100 WBC (Bld) 9.6 % 0-10 [facility] Work Phone: Blood platelet mean volumeon 08-16-2022 Platelet mean volume (Bld) [Entitic vol] 8.6 fL 6.2-12.[address] [facility] Work Phone: Determination of erythrocyte mean corpuscular volume (MCV)on 08-16-2022 MCV (RBC) [Entitic vol] 100.9 fL 80-94 [facility] Work Phone: Hematocrit Auto (Bld) [Volum e fraction]on 08-16-2022 Hematocrit (Bld) [Volume fraction] 32.3 % 40-[address] [facility] Work Phone: Laboratory - Hematology and Cell countson 08-16-2022 Erythrocyte distribution width (RBC) [Entitic vol] 45.1 fL 35.1-43.9 [facility] Work Phone: Erythrocyte distribution width (RBC) [Ratio] 12.1 % 11.6-14.[address] [facility] Work Phone: Immature granulocytes/100 WBC (Bld) 0.900 % 0.0-0.[address] [facility] Work Phone: Comment on above: IG% - Immature Granu locytes (promyelocytes, myelocytes and metamyelocytes) > 1% indicates that a LEFT SHIFT is Present. MCH (RBC) [Entitic mass] 33.1 pg 27.0-32.[address] [facility] Work Phone: Nucleated RBC/100 WBC (Bld) [Ratio] 0 % 0-[address] [facility] Work Phone: MCHC Auto (RBC) [Mass/Vol]on 08-16-2022 MCHC (RBC) [Mass/Vol] 32.8 g/dL 32-36 [facility] Work [facility]: No Panel Informationon 08-16 Thyroid Stimulating Hormone (TSH) 1.84 uIU/mL 0.358-3.[address] [facility] Work Phone: Platelets bldon 08-16-2022 Platelets (Bld) [#/Vol] 362 10*3/uL 150-[address] [facility] Work Phone: Serum or plasma cortisol marry surement (mass/volume)on 08-16-2022 Cortisol [Mass/Vol] 18.20 ug/dL 3.44-22.45 [facility] Work Phone: [phone] Comment on above: Adult (AM) 5.27 - 22 .45 ug/dL Adult (PM) 3.44 - 16.76 ug/dLPlease note revised CORTISOL reference range effective 2020. Absolute lymphocyte counton 08-15-2022 Lymphocytes Auto (Unsp spec) [#/Vol] 2.90 10*3/uL 0.83-4.[address] [facility] Work Phone: Basophil percentageon 2021 Basophil percentage 0-5 SEEN /hpf 0-5 [facility] Work Phone: [phone] Basophils/100 WBC (Bld) 0.4 % 0-1 [facility] Work Phone: [phone] Chloride [Moles/Vol] 85 mmol/L 98-107 [facility] Work Phone: [phone] Eosinophils/100 WBC (Bld) 1.8 % 0-[address] [facility] Work Phone: [phone] Glucose [Mass/Vol] 105 mg/dL 74-106 [facility] Work Phone: Comment on above: Fasting Glucose resu lt from 100 to 125 mg/dL suggests IMPAIRED HOMEOSTASIS per A.D.A. criteria. Neutrophils (Bld) [#/Vol] 8.1 10*3/uL 2.0-7.[address] [facility] Work Phone: [phone] Neutrophils/100 WBC (Bld) 65.1 % 47-[address] [facility] Work Phone: [phone] Potassium [Moles/Vol] 4.8 mmol/L 3.5-5.1 [facility] Work Phone: [phone] Sodium [Moles/Vol] 123 mmol/L 136-145 [facility] Work Phone: [phone] WBC (Bld) [#/Vol] 12.4 10*3/uL 4.4-11.0 [facility] Work [facility]: Bilirubin Test strip Ql (U)o n 08-15-2022 Bilirubin Ql (U) Negative Negative [facility] Work Phone: Blood erythrocytes count (nu mber/volume)on 08-15-2022 RBC (Bld) [#/Vol] 3.64 10*6/uL 4.6-6.2 [facility] Work [facility]: Blood hemoglobin measurement (mass/volume)on 08-15-2022 Hemoglobin (Bld) [Mass/Vol] 12.2 g/dL 13.0-16.[address] [facility] Work Phone: Blood lymphocytes/100 leukoc yteson 08-15-2022 Lymphocytes/100 WBC (Bld) 23.4 % 19-[address] [facility] Work Phone: Blood monocytes/100 leukocyt eson 08-15-2022 Monocytes/100 WBC (Bld) 8.5 % 0-10 [facility] Work Phone: Blood platelet mean volumeon 08-15-2022 Platelet mean volume (Bld) [Entitic vol] 8.5 fL 6.2-12.[address] [facility] Work Phone: Determination of erythrocyte mean corpuscular volume (MCV)on 08-15-2022 MCV (RBC) [Entitic vol] 97.3 fL 80-94 [facility] Work Phone: Hematocrit Auto (Bld) [Volum e fraction]on 08-15-2022 Hematocrit (Bld) [Volume fraction] 35.4 % 40-[address] [facility] Work Phone: Ketones Test strip Ql (U)on 08-15-2022 Ketones Ql (U) 5 mg/dl Negative [facility] Work Phone: Laboratory - Chemistry and C hemistry - challengeon 08-15-2022 Sodium (U) [Moles/Vol] 73 mmol/L Not Establ. [facility] Work Phone: CO2 [Moles/Vol] 26.0 mmol/L 21.0-32.[address] [facility] Work Phone: Magnesium [Mass/Vol] 4.3 mg/dL 1.6-2.6 [facility] Work Phone: Urea nitrogen/Creatinine [Mass ratio] 7.5 mg/mg 10-[address] [facility] Work Phone: Laboratory - Hematology and Cell countson 08-15-2022 Erythrocyte distribution width (RBC) [Entitic vol] 42.4 fL 35.1-43.9 [facility] Work Phone: Erythrocyte distribution width (RBC) [Ratio] 11.9 % 11.6-14.[address] [facility] Work Phone: Immature granulocytes/100 WBC (Bld) 0.800 % 0.0-0.[address] [facility] Work Phone: Comment on above: IG% - Immature Granu locytes (promyelocytes, myelocytes and metamyelocytes) > 1% indicates that a LEFT SHIFT is Present. MCH (RBC) [Entitic mass] 33.5 pg 27.0-32.[address] [facility] Work Phone: Nucleated RBC/100 WBC (Bld) [Ratio] 0 % 0-[address] [facility] Work Phone: MCHC Auto (RBC) [Mass/Vol]on 08-15-2022 MCHC (RBC) [Mass/Vol] 34.5 g/dL 32-36 [facility] Work Phone: Mucus LM Ql (Urine sed)on Mucus Ql (Urine sed) 0 SEEN /hpf [facility] Work Phone: Nitrite Test strip Ql (U)on 08-15-2022 Nitrite Ql (U) Negative Negative [facility] Work Phone: No Panel Informationon 08-15 Estimated Creatinine Clearance Calc 11.11 ml/min [facility] Work Phone: Estimated GFR (MDRD) Amer 9 mL/min >[address] [facility] Work Phone: Comment on above: GFR Calc Estimated GFR (MDRD) Non-Af Amer 8 mL/min >[address] [facility] Work Phone: Comment on above: Non- GFR Calc Platelets bldon 08-15-2022 Platelets (Bld) [#/Vol] 399 10*3/uL 150-[address] [facility] Work Phone: Protein Test strip Ql (U)on 08-15-2022 Protein Ql (U) 15 mg/dl Negative [facility] Work Phone: Serum or plasma calcium dana urement (mass/volume)on 08-15-2022 Calcium [Mass/Vol] 8.9 mg/dL 8.5-10.1 [facility] Work Phone: Serum or plasma creatinine m easurement (mass/volume)on 08-15-2022 Creatinine [Mass/Vol] 7.50 mg/dL 0.70-1.30 [facility] Work Phone: Comment on above: Critical Result(s) C alled at: 04:59:02 08/15/2022 by: FLORENCE SCHNEIDER TO RAVINDRA ALANIS. Results read back by same.The validity of the calculated GFR & GFRAA in patients over 70 years has not been determined. Clinical correlation is essential. Serum or plasma urea nitroge n measurement (mass/volume)on 08-15-2022 Urea nitrogen [Mass/Vol] 56 mg/dL 7-[address] [facility] Work Phone: Squamous epithelial cells de tection in urine sediment by light microscopyon 08-15-2022 Epithelial cells.squamous LM Ql (Urine sed) 0 SEEN /hpf 0-[address] [facility] Work Phone: Thin prep Papanicolaou smear with manual screeningon 08-15-2022 Thin prep Papanicolaou smear with manual screening 12 5-[address] [facility] Work Phone: Thin prep Papanicolaou smear with manual screening 278 mOsm/KG 280-[address] [facility] Work Phone: Urine blood detectionon 07-30 RBC Ql (U) 250 /ul Negative [facility] Work Phone: RBC Ql (U) 25-50 SEEN /hpf 0-[address] [facility] Work Phone: Urine clarityon 08-15-2022 Clarity (U) Clear Clear [facility] Work Phone: Urine color determinationon 08-15-2022 Color (U) Straw Yellow [facility] Work Phone: Urine glucose detectionon Glucose Ql (U) Normal mg/dl Normal [facility] Work Phone: Urine leukocyte esterase det ection by dipstickon 08-15-2022 Leukocyte esterase Test strip Ql (U) 25 /ul Negative [facility] Work Phone: Urine osmolality measurement on 08-15-2022 Osmolality (U) [Osmolality] 228 mOsm/KG >[address] [facility] Work Phone: Comment on above: Normal Urine Referen ce Ranges Random: 50 - 1200 mOsm/kg H20 depending on fluid intake Random: >850 mOsm/kg after 12 hour fluid restriction 24 hour: ~300 - 900 mOsm/kg H2O Urine pHon 08-15-2022 pH (U) 7.0 [pH] 5.0 - 8.[address] [facility] Work Phone: Urine sediment bacteria coun t by microscopy (number/high power field)on 08-15-2022 Bacteria LM.HPF (Urine sed) [#/Area] 0 /[HPF] None Seen [facility] Work Phone: Urine specific gravity measu rementon 08-15-2022 Specific gravity (U) [Rel density] 1.005 1.002-1.[address] [facility] Work Phone: Urobilinogen Auto test strip Ql (U)on 08-15-2022 Urobilinogen Ql (U) Normal mg/dl Normal [facility] Work Phone: Absolute lymphocyte counton 07-21-2022 Lymphocytes Auto (Unsp spec) [#/Vol] 2.40 10*3/uL 0.83-4.[address] [facility] Work Phone: [phone] Basophil percentageon 2021 Basophils/100 WBC (Bld) 0.4 % 0-1 [facility] Work Phone: [phone] Chloride [Moles/Vol] 107 mmol/L 98-107 [facility] Work Phone: Eosinophils/100 WBC (Bld) 2.4 % 0-[address] [facility] Work Phone: [phone] Glucose [Mass/Vol] 88 mg/dL 74-106 [facility] Work Phone: [phone] Neutrophils (Bld) [#/Vol] 4.0 10*3/uL 2.0-7.[address] [facility] Work Phone: [phone] Neutrophils/100 WBC (Bld) 56.7 % 47-[address] [facility] Work Phone: [phone] Potassium [Moles/Vol] 4.6 mmol/L 3.5-5.1 [facility] Work Phone: [phone] Sodium [Moles/Vol] 140 mmol/L 136-145 [facility] Work Phone: [phone] WBC (Bld) [#/Vol] 7.1 10*3/uL 4.4-11.0 [facility] Work Phone: Blood erythrocytes count (nu mber/volume)on 07-21-2022 RBC (Bld) [#/Vol] 4.31 10*6/uL 4.6-6.2 [facility] Work Phone: [phone] Blood hemoglobin measurement (mass/volume)on 07-21-2022 Hemoglobin (Bld) [Mass/Vol] 14.3 g/dL 13.0-16.[address] [facility] Work Phone: [phone] Blood lymphocytes/100 leukoc yteson 07-21-2022 Lymphocytes/100 WBC (Bld) 33.8 % 19-[address] [facility] Work Phone: Blood monocytes/100 leukocyt eson 07-21-2022 Monocytes/100 WBC (Bld) 6.1 % 0-10 [facility] Work Phone: Blood platelet mean volumeon 07-21-2022 Platelet mean volume (Bld) [Entitic vol] 9.3 fL 6.2-12.[address] [facility] Work Phone: Determination of erythrocyte mean corpuscular volume (MCV)on 07-21-2022 MCV (RBC) [Entitic vol] 101.2 fL 80-94 [facility] Work Phone: Hematocrit Auto (Bld) [Volum e fraction]on 07-21-2022 Hematocrit (Bld) [Volume fraction] 43.6 % 40-[address] [facility] Work Phone: Laboratory - Chemistry and C hemistry - challengeon 07-21-2022 CO2 [Moles/Vol] 27.0 mmol/L 21.0-32.[address] [facility] Work Phone: Urea nitrogen/Creatinine [Mass ratio] 19.7 mg/mg 10-[address] [facility] Work Phone: Laboratory - Hematology and Cell countson 07-21-2022 Erythrocyte distribution width (RBC) [Entitic vol] 46.1 fL 35.1-43.9 [facility] Work Phone: Erythrocyte distribution width (RBC) [Ratio] 12.3 % 11.6-14.[address] [facility] Work Phone: Immature granulocytes/100 WBC (Bld) 0.600 % 0.0-0.[address] [facility] Work Phone: Comment on above: IG% - Immature Granu locytes (promyelocytes, myelocytes and metamyelocytes) > 1% indicates that a LEFT SHIFT is Present. MCH (RBC) [Entitic mass] 33.2 pg 27.0-32.[address] [facility] Work Phone: Nucleated RBC/100 WBC (Bld) [Ratio] 0 % 0-[address] [facility] Work Phone: MCHC Auto (RBC) [Mass/Vol]on 07-21-2022 MCHC (RBC) [Mass/Vol] 32.8 g/dL 32-36 [facility] Work Phone: No Panel Informationon 07-21 Estimated GFR (MDRD) Amer 121 mL/min >[address] [facility] Work Phone: Comment on above: GFR Calc Estimated GFR (MDRD) Non-Af Amer 100 mL/min >[address] [facility] Work Phone: Comment on above: Non- GFR Calc Thyroid Stimulating Hormone (TSH) 1.73 uIU/mL 0.358-3.[address] [facility] Work Phone: Platelets bldon 07-21-2022 Platelets (Bld) [#/Vol] 270 10*3/uL 150-[address] [facility] Work Phone: Serum or plasma albumin dana urement (mass/volume)on 07-21-2022 Albumin [Mass/Vol] 4.0 g/dL 3.2-5.0 [facility] Work Phone: Serum or plasma calcium dana urement (mass/volume)on 07-21-2022 Calcium [Mass/Vol] 9.7 mg/dL 8.5-10.1 [facility] Work Phone: Serum or plasma creatinine m easurement (mass/volume)on 07-21-2022 Creatinine [Mass/Vol] 0.81 mg/dL 0.70-1.30 [facility] Work Phone: Comment on above: The validity of the calculated GFR & GFRAA in patients over 70 years has not been determined. Clinical correlation is essential. Serum or plasma urea nitroge n measurement (mass/volume)on 07-21-2022 Urea nitrogen [Mass/Vol] 16 mg/dL 7-[address] [facility] Work Phone: Thin prep Papanicolaou smear with manual screeningon 07-21-2022 Thin prep Papanicolaou smear with manual screening 6 5-[address] [facility] Work Phone: No Panel Informationon 04-08 Prostate Specific Antigen Total 7.74 ng/mL 0.0-4.[address] [facility] Work Phone: Comment on above: This test was perfor med using the TPSA assay method for [employer] chemistry system. Values obtained with differentassay methods cannot be used interchangably.When changing PSA assays in the course of monitoring apatient, additional sequential testing should be carriedout to confirm baseline values. Absolute lymphocyte counton 02-06-2022 Lymphocytes Auto (Unsp spec) [#/Vol] 1.99 10*3/uL 0.83-4.[address] [facility] Work Phone: Basophil percentageon 2021 Basophils/100 WBC (Bld) 0.5 % 0-1 [facility] Work Phone: Bilirubin [Mass/Vol] 0.60 mg/dL 0.20-1.00 [facility] Work Phone: Comment on above: For patients on eltr ombopag therapy, use of Dimension [place] TBIL is not recommended. Chloride [Moles/Vol] 106 mmol/L 98-107 [facility] Work Phone: Cholesterol [Mass/Vol] 194 mg/dL <200 [facility] Work Phone: Comment on above: <200 mg/dL Desirable 200-240 mg/dL Borderline >240 mg/dL High Risk Eosinophils/100 WBC (Bld) 1.8 % 0-[address] [facility] Work Phone: Glucose [Mass/Vol] 98 mg/dL 74-106 [facility] Work Phone: Neutrophils (Bld) [#/Vol] 4.8 10*3/uL 2.0-7.[address] [facility] Work Phone: Neutrophils/100 WBC (Bld) 64.3 % 47-[address] [facility] Work Phone: Potassium [Moles/Vol] 4.0 mmol/L 3.5-5.1 [facility] Work Phone: [phone] Protein [Mass/Vol] 7.0 g/dL 6.4-8.2 [facility] Work Phone: Sodium [Moles/Vol] 137 mmol/L 136-145 [facility] Work Phone: Triglyceride [Mass/Vol] 124 mg/dL [facility] Work Phone: Comment on above: The drugs N-Acetylcy steine and Metamizole may falsely depress this assay.Serum Triglycerides Reference Interval Normal <150 mg/dL Borderline high 150 - 199 mg/dL High 200 - 499 mg/dL Very High > or = 500 mg/dL WBC (Bld) [#/Vol] 7.4 10*3/uL 4.4-11.0 [facility] Work Phone: Blood erythrocytes count (nu mber/volume)on 02-06-2022 RBC (Bld) [#/Vol] 4.27 10*6/uL 4.6-6.2 [facility] Work Phone: Blood hemoglobin measurement (mass/volume)on 02-06-2022 Hemoglobin (Bld) [Mass/Vol] 14.5 g/dL 13.0-16.[address] [facility] Work Phone: Blood lymphocytes/100 leukoc yteson 02-06-2022 Lymphocytes/100 WBC (Bld) 26.9 % 19-[address] [facility] Work Phone: Blood monocytes/100 leukocyt eson 02-06-2022 Monocytes/100 WBC (Bld) 6.2 % 0-10 [facility] Work Phone: [phone] Blood platelet mean volumeon 02-06-2022 Platelet mean volume (Bld) [Entitic vol] 9.3 fL 6.2-12.[address] [facility] Work Phone: Determination of erythrocyte mean corpuscular volume (MCV)on 02-06-2022 MCV (RBC) [Entitic vol] 99.3 fL 80-94 [facility] Work Phone: Hematocrit Auto (Bld) [Volum e fraction]on 02-06-2022 Hematocrit (Bld) [Volume fraction] 42.4 % 40-[address] [facility] Work Phone: Laboratory - Chemistry and C hemistry - challengeon 02-06-2022 ALP [Catalytic activity/Vol] 94 U/L 45-[address] [facility] Work Phone: ALT [Catalytic activity/Vol] 16 U/L 16-[address] [facility] Work Phone: CO2 [Moles/Vol] 26.0 mmol/L 21.0-32.[address] [facility] Work Phone: Globulin (S) [Mass/Vol] 3.2 g/dL 2.2-4.2 [facility] Work Phone: Urea nitrogen/Creatinine [Mass ratio] 15.0 mg/mg 10-[address] [facility] Work Phone: Laboratory - Hematology and Cell countson 02-06-2022 Erythrocyte distribution width (RBC) [Entitic vol] 44.5 fL 35.1-43.9 [facility] Work Phone: Erythrocyte distribution width (RBC) [Ratio] 12.2 % 11.6-14.[address] [facility] Work Phone: Immature granulocytes/100 WBC (Bld) 0.300 % 0.0-0.[address] [facility] Work Phone: Comment on above: IG% - Immature Granu locytes (promyelocytes, myelocytes and metamyelocytes) > 1% indicates that a LEFT SHIFT is Present. MCH (RBC) [Entitic mass] 34.0 pg 27.0-32.[address] [facility] Work Phone: Nucleated RBC/100 WBC (Bld) [Ratio] 0 % 0-[address] [facility] Work Phone: MCHC Auto (RBC) [Mass/Vol]on 02-06-2022 MCHC (RBC) [Mass/Vol] 34.2 g/dL 32-36 [facility] Work Phone: No Panel Informationon 02-06 Estimated GFR (MDRD) Amer 113 mL/min >[address] [facility] Work Phone: Comment on above: GFR Calc Estimated GFR (MDRD) Non-Af Amer 93 mL/min >[address] [facility] Work Phone: Comment on above: Non- GFR Calc Thyroid Stimulating Hormone (TSH) 1.46 uIU/mL 0.358-3.[address] [facility] Work Phone: Platelets bldon 02-06-2022 Platelets (Bld) [#/Vol] 290 10*3/uL 150-[address] [facility] Work Phone: Serum or plasma albumin dana urement (mass/volume)on 02-06-2022 Albumin [Mass/Vol] 3.8 g/dL 3.2-5.0 [facility] Work Phone: Serum or plasma albumin/glob ulin mass ratioon 02-06-2022 Albumin/Globulin [Mass ratio] 1.2 {ratio} 0.9-2.[address] [facility] Work Phone: Serum or plasma calcium dana urement (mass/volume)on 02-06-2022 Calcium [Mass/Vol] 8.9 mg/dL 8.5-10.1 [facility] Work Phone: Serum or plasma cholesterol in HDL measurement (mass/volume)on 02-06-2022 Cholesterol in HDL [Mass/Vol] 49 mg/dL [facility] Work Phone: Comment on above: The drugs N-Acetylcy steine and Metamizole may falsely depress this assay. Reference Range HDL <40 mg/dL Low HDL Cholesterol HDL >or= 60 mg/dL High HDL Cholesterol Serum or plasma cholesterol in VLDL measurement (mass/volume)on 02-06-2022 Cholesterol in VLDL [Mass/Vol] 25 mg/dL 5-[address] [facility] Work Phone: Serum or plasma creatinine m easurement (mass/volume)on 02-06-2022 Creatinine [Mass/Vol] 0.86 mg/dL 0.70-1.30 [facility] Work Phone: Comment on above: The validity of the calculated GFR & GFRAA in patients over 70 years has not been determined. Clinical correlation is essential. Serum or plasma low density lipoprotein (LDL) cholesterol measurement (mass/volume)on 02-06-2022 Cholesterol in LDL [Mass/Vol] 120 mg/dL 0-[address] [facility] Work Phone: Serum or plasma urea nitroge n measurement (mass/volume)on 02-06-2022 Urea nitrogen [Mass/Vol] 13 mg/dL 7-[address] [facility] Work Phone: Thin prep Papanicolaou smear with manual screeningon 02-06-2022 Thin prep Papanicolaou smear with manual screening 11 U/L 15-[address] [facility] Work Phone: Thin prep Papanicolaou smear with manual screening 5 5-[address] [facility] Work Phone: Culture, urine Bacteria identified Cx Nom (U) Klebsiella aerogenes [facility] Work Phone: Vital Signs Date Time Vital Sign Value Performing Clinician Faci lity 02-19-2025 13:00-0400 Body height 193.[address] Gregg Powers MD Work Phone: [facility] 02-19-2025 13:00-0400 Body mass index (BMI) [Ratio] 23.7 kg/m2 Dr. Gregg Powers MD Work Phone: [facility] 02-19-2025 13:00-0400 Body temperature 97.1 [degF] Dr. Gregg Powers MD Work Phone: [facility] 02-19-2025 13:00-0400 Body weight 88.[address] Gregg Powers MD Work Phone: [facility] 02-19-2025 13:00-0400 Diastolic blood pressure 80 mm[Hg] Dr. Gregg Powers MD Work Phone: [facility] 02-19-2025 13:00-0400 Heart rate 60 /min Dr. Gregg Powers MD Work Phone: [facility] 02-19-2025 13:00-0400 Respiratory rate 18 /min Dr. Gregg Powers MD Work Phone: [facility] 02-19-2025 13:00-0400 SaO2% (BldA) [Mass fraction] 99 % Dr. Gregg Powers MD Work Phone: [facility] 02-19-2025 13:00-0400 Systolic blood pressure 140 mm[Hg] Dr. Gregg Powers MD Work Phone: [facility] 04-12-2023 14:48-0400 Body height 193.[address] Gregg Powers Work Phone: [facility] 04-12-2023 14:48-0400 Body mass index (BMI) [Ratio] 23 kg/m2 Dr. Gregg Powers Work Phone: [facility] 04-12-2023 14:48-0400 Body temperature 98.7 [degF] Dr. Gregg Powers Work Phone: [facility] 04-12-2023 14:48-0400 Body weight 85.[address] Gregg Powers Work Phone: [facility] 04-12-2023 14:48-0400 Diastolic blood pressure 82 mm[Hg] Dr. Gregg Powers Work Phone: [facility] 04-12-2023 14:48-0400 Heart rate 79 /min Dr. Gregg Powers Work Phone: [facility] 04-12-2023 14:48-0400 Respiratory rate 14 /min Dr. Gregg Powers Work Phone: [facility] 04-12-2023 14:48-0400 SaO2% (BldA) [Mass fraction] 95 % Dr. Gregg Powers Work Phone: [facility] 04-12-2023 14:48-0400 Systolic blood pressure 150 mm[Hg] Dr. Gregg Powers Work Phone: [facility] 02-17-2023 08:14-0400 Body height 193.[address] Gregg Powers Work Phone: [facility] 02-17-2023 08:14-0400 Body mass index (BMI) [Ratio] 23.5 kg/m2 Dr. Gregg Powers Work Phone: [facility] 02-17-2023 08:14-0400 Body temperature 96.4 [degF] Dr. Gregg Powers Work Phone: [facility] 02-17-2023 08:14-0400 Body weight 87.[address] Gregg Powers Work Phone: [facility] 02-17-2023 08:14-0400 Diastolic blood pressure 70 mm[Hg] Dr. Gregg Powers Work Phone: [facility] 02-17-2023 08:14-0400 Heart rate 54 /min Dr. Gregg Powers Work Phone: [facility] 02-17-2023 08:14-0400 Respiratory rate 18 /min Dr. Gregg Powers Work Phone: [facility] 02-17-2023 08:14-0400 SaO2% (BldA) [Mass fraction] 98 % Dr. Gregg Powers Work Phone: [facility] 02-17-2023 08:14-0400 Systolic blood pressure 122 mm[Hg] Dr. Gregg Powers Work Phone: [facility] 09-26-2022 08:42-0400 Body temperature 98.2 [degF] Dr. Gregg Powers Work Phone: [facility] Work Phone: 09-26-2022 08:42-0400 Diastolic blood pressure 67 mm[Hg] Dr. Gregg Powers Work Phone: [facility] Work Phone: 09-26-2022 08:42-0400 Heart rate 66 /min Dr. Gregg Powers Work Phone: [facility] Work Phone: 09-26-2022 08:42-0400 Respiratory rate 18 /min Dr. Gregg Powers Work Phone: [facility] Work Phone: 09-26-2022 08:42-0400 SaO2% (BldA) [Mass fraction] 98 % Dr. Gregg Powers Work Phone: [facility] Work Phone: 09-26-2022 08:42-0400 Systolic blood pressure 129 mm[Hg] Dr. Gregg Powers Work Phone: [facility] Work Phone: 09-26-2022 04:18-0400 Inhaled oxygen flow rate 3 L/min Dr. Gregg Powers Work Phone: [facility] Work Phone: 09-25-2022 12:40-0400 Body height 193.[address] Gregg Powers Work Phone: [facility] Work Phone: 09-25-2022 12:40-0400 Body mass index (BMI) [Ratio] 22.3 kg/m2 Dr. Gregg Powers Work Phone: [facility] Work Phone: 09-25-2022 12:40-0400 Body weight 83.[address] Gregg Powers Work Phone: [facility] Work Phone: 08-19-2022 10:02-0400 Body height 193.[address] Gregg Powers Work Phone: [facility] Work Phone: 08-19-2022 10:02-0400 Body mass index (BMI) [Ratio] 22.6 kg/m2 Dr. Gregg Powers Work Phone: [facility] Work Phone: 08-19-2022 10:02-0400 Body temperature 97.5 [degF] Dr. Gregg Powers Work Phone: [facility] Work Phone: 08-19-2022 10:02-0400 Body weight 84.[address] Gregg Powers Work Phone: [facility] Work Phone: 08-19-2022 10:02-0400 Diastolic blood pressure 84 mm[Hg] Dr. Gregg Powers Work Phone: [facility] Work Phone: 08-19-2022 10:02-0400 Heart rate 95 /min Dr. Gregg Powers Work Phone: [facility] Work Phone: 08-19-2022 10:02-0400 Respiratory rate 16 /min Dr. Gregg Powers Work Phone: [facility] Work Phone: 08-19-2022 10:02-0400 SaO2% (BldA) [Mass fraction] 99 % Dr. Gregg Powers Work Phone: [facility] Work Phone: 08-19-2022 10:02-0400 Systolic blood pressure 130 mm[Hg] Dr. Gregg Powers Work Phone: [facility] Work Phone: 08-17-2022 08:45-0400 Body temperature 98.6 [degF] Dr. Gregg Powers Work Phone: [facility] Work Phone: 08-17-2022 08:45-0400 Diastolic blood pressure 93 mm[Hg] Dr. Gregg Powers Work Phone: [facility] Work Phone: 08-17-2022 08:45-0400 Heart rate 98 /min Dr. Gregg Powers Work Phone: [facility] Work Phone: 08-17-2022 08:45-0400 Respiratory rate 18 /min Dr. Gregg Powers Work Phone: [facility] Work Phone: 08-17-2022 08:45-0400 SaO2% (BldA) [Mass fraction] 98 % Dr. Gregg Powers Work Phone: [facility] Work Phone: 08-17-2022 08:45-0400 Systolic blood pressure 159 mm[Hg] Dr. Gregg Powers Work Phone: [facility] Work Phone: 08-15-2022 07:00-0400 Body height 193.[address] Gregg Powers Work Phone: [facility] Work Phone: 08-15-2022 07:00-0400 Body mass index (BMI) [Ratio] 23.2 kg/m2 Dr. Gregg Powers Work Phone: [facility] Work Phone: 08-15-2022 07:00-0400 Body weight 86.[address] Gregg Powers Work Phone: [facility] Work Phone: 08-15-2022 06:21-0400 Body temperature 98.7 [degF] Dr. Gregg Powers Work Phone: [facility] Work Phone: 08-15-2022 06:21-0400 Diastolic blood pressure 91 mm[Hg] Dr. Gregg Powers Work Phone: [facility] Work Phone: 08-15-2022 06:21-0400 Heart rate 85 /min Dr. Gregg Powers Work Phone: [facility] Work Phone: 08-15-2022 06:21-0400 Respiratory rate 18 /min Dr. Gregg Powers Work Phone: [facility] Work Phone: 08-15-2022 06:21-0400 SaO2% (BldA) [Mass fraction] 99 % Dr. Gregg Powers Work Phone: [facility] Work Phone: 08-15-2022 06:21-0400 Systolic blood pressure 188 mm[Hg] Dr. Gregg Powers Work Phone: [facility] Work Phone: 08-15-2022 03:53-0400 Body height 190.[address] Gregg Powers Work Phone: [facility] Work Phone: 08-15-2022 03:53-0400 Body mass index (BMI) [Ratio] 25.3 kg/m2 Dr. Gregg Powers Work Phone: [facility] Work Phone: 08-15-2022 03:53-0400 Body weight 92.[address] Gregg Powers Work Phone: [facility] Work Phone: 07-21-2022 08:02-0400 Body height 193.[address] Gregg Powers Work Phone: [facility] Work Phone: 07-21-2022 08:02-0400 Body mass index (BMI) [Ratio] 23.3 kg/m2 Dr. Gregg Powers Work Phone: [facility] Work Phone: 07-21-2022 08:02-0400 Body temperature 97.5 [degF] Dr. Gregg Powers Work Phone: [facility] Work Phone: 07-21-2022 08:02-0400 Body weight 87.[address] Gregg Powers Work Phone: [facility] Work Phone: 07-21-2022 08:02-0400 Diastolic blood pressure 84 mm[Hg] Dr. Gregg Powers Work Phone: [facility] Work Phone: 07-21-2022 08:02-0400 Heart rate 68 /min Dr. Gregg Powers Work Phone: [facility] Work Phone: 07-21-2022 08:02-0400 Respiratory rate 16 /min Dr. Gregg Powers Work Phone: [facility] Work Phone: 07-21-2022 08:02-0400 SaO2% (BldA) [Mass fraction] 97 % Dr. Gregg Powers Work Phone: [facility] Work Phone: 07-21-2022 08:02-0400 Systolic blood pressure 142 mm[Hg] Dr. Gregg Powers Work Phone: [facility] Work Phone: 02-06-2022 06:10-0500 Body height 193.[address] Gregg Powers Work Phone: [facility] Work Phone: 02-06-2022 06:10-0500 Body temperature 98.2 [degF] Dr. Gregg Powers Work Phone: [facility] Work Phone: 02-06-2022 06:10-0500 Body weight 84.[address] Gregg Powers Work Phone: [facility] Work Phone: 02-06-2022 06:10-0500 Diastolic blood pressure 74 mm[Hg] Dr. Gregg Powers Work Phone: [facility] Work Phone: 02-06-2022 06:10-0500 Heart rate 62 /min Dr. Gregg Powers Work Phone: [facility] Work Phone: 02-06-2022 06:10-0500 Respiratory rate 14 /min Dr. Gregg Powers Work Phone: [facility] Work Phone: 02-06-2022 06:10-0500 SaO2% (BldA) [Mass fraction] 99 % Dr. Gregg Powers Work Phone: [facility] Work Phone: 02-06-2022 06:10-0500 Systolic blood pressure 128 mm[Hg] Dr. Gregg Powers Work Phone: [facility] Work Phone: 01-31-2021 14:25-0500 Body mass index (BMI) [Ratio] 24.2 kg/m2 Dr. Gregg Powers Work Phone: [facility] Work Phone: Encounters Encounter Date Encounter Type Care Provider Facility Start: 08-20-2025 End: [facility] Start: 03-05-2025 End: 03-05-[address] Gregg Powers MD Work Phone: [facility] Work Phone: Start: 03-05-2025 End: 03-05-[address] Eitan Patterson MD -Laboratory Work Phone: Start: 03-05-2025 End: 03-05-2025 [facility] Start: 02-19-2025 End: 02-19-[address] Gregg Powers MD -[place] Work Phone: Start: 02-19-2025 End: 02-19-[address] Gregg Powers MD Work Phone: [facility] Work Phone: Start: 02-19-2025 End: 02-19-2025 [facility] Start: 08-21-2024 End: 08-21-2024 ambulatory [facility] [place] Start: 08-21-2024 End: 08-21-2024 ambulatory [facility] Facility:[facility] Start: 04-06-[address] Katelyn Powers MD Work Phone: [facility] Start: 11-05-2023 End: 11-05-[address] [facility] Work Phone: Start: 11-05-2023 End: 11-05-2023 Patient encounter procedure [facility]-Laboratory Work Phone: Start: 04-17-2023 End: 04-17-[address] Gregg Powers Work Phone: [facility] Work Phone: Start: 04-17-2023 End: 04-17-[address] Gregg Powers Work Phone: [facility] Start: 04-12-2023 End: 04-12-[address] Gregg Powers Work Phone: [facility] Start: 02-17-2023 End: 02-17-[address] Gregg Powers Work Phone: [facility] Work Phone: Start: 02-17-2023 End: 02-17-2023 Encounter for general adult medical examination without abnormal findings Dr. Gregg Powers Work Phone: [facility] Start: 02-17-2023 End: 02-17-[address] Gregg Powers Work Phone: [facility] Start: 01-29-2023 End: 01-29-[address] [facility] Work Phone: Start: 01-29-2023 End: 01-29-2023 Patient encounter procedure [facility]-Laboratory Start: 09-25-2022 End: 09-26-2022 Evaluation and management of inpatient Dr. Gregg Powers Work Phone: [facility]-Medical Surgical 3 Start: 09-25-2022 End: 09-26-[address] Gregg Powers Work Phone: [facility] Work Phone: Start: 09-02-2022 End: 09-02-[address] Gregg Powers Work Phone: [facility] Work Phone: Start: 09-02-2022 End: 09-02-[address] Gregg Powers Work Phone: [facility]-Laboratory, [facility] Start: 08-19-2022 End: 08-19-[address] Gregg Powers Work Phone: [facility] Work Phone: Start: 08-19-2022 End: 08-19-[address] Gregg Powers Work Phone: [facility] Start: 08-17-2022 Non-patient / Non-visit Dr. Remi Powers Work Phone: [facility] Start: 08-16-2022 Non-patient / Non-visit Dr. Remi Powers Work Phone: [facility] Start: 08-15-2022 Non-patient / Non-visit Dr. Remi Powers Work Phone: [facility] Start: 08-15-2022 End: 08-17-2022 Evaluation and management of inpatient Dr. Gregg Powers Work Phone: [facility]-Progressive Care Unit Start: 07-27-2022 End: 07-27-[address] Gregg Powers Work Phone: [facility]-Pulmonary Services/Neurology Start: 07-27-2022 Non-patient / Non-visit Dr. Remi Powers Work Phone: [facility] Start: 07-21-2022 End: 07-21-[address] Gregg Powers Work Phone: [facility] Work Phone: Start: 07-21-[address] Lisandra Powers Work Phone: [facility] Start: 07-21-2022 End: 07-21-2022 Encounter for other preprocedural examination Dr. Gregg Powers Work Phone: [facility] Internal [facility] Start: 07-21-2022 End: 07-21-[address] Gregg Powers Work Phone: [facility] Internal [facility] Start: 04-08-2022 End: 04-08-[address] Gregg Powers Work Phone: [facility]-Laboratory Start: 02-06-2022 End: 02-06-[address] Gregg Powers Work Phone: [facility]-Laboratory, [place] Start: 02-06-[address] Katelyn Powers Work Phone: [facility] Start: 02-06-2022 End: 02-06-2022 Encounter for general adult medical examination without abnormal findings Dr. Gregg Powers Work Phone: [facility] Internal [facility] Start: 02-06-2022 End: 02-06-[address] Gregg Powers Work Phone: [facility] Start: 02-21-2021 End: 02-21-2021 Patient encounter procedure [facility] Start: 01-31-2021 End: 01-31-2021 Patient encounter procedure [facility] Procedures Date Procedure Procedure Detail Performing Clinician Start: 04-17-2023 CT of abdomen and pe lvis without contrast Dr. Gregg Powers Work Phone: Start: 09-25-2022 Cysto,TUR,Prostate,O lympu s (Not Applicable) Dr. Gregg Powers Work Phone: Urine culture Dr. Gregg Powers Work Phone: Plan of Treatment Date Care Activity Detail Author Start: 09-26-2022 Patient discharge [facility] Work Phone: Start: 09-26-2022 Removal of urinary catheter [facility] Work Phone: Start: 09-25-2022 Application of inter mittent pneumatic compression device [facility] Work Phone: Start: 09-25-2022 Following clinical p athway protocol [facility] Work Phone: Start: 09-25-2022 Deep breathing and c oughing exercises [facility] Work Phone: Start: 09-25-2022 Incentive spirometry [facility] Work Phone: Start: 09-25-2022 Provision of activit y privileges [facility] Work Phone: Start: 09-25-2022 Admission procedure [facility] Work Phone: Start: 09-25-2022 Irrigation of urinar y bladder [facility] Work Phone: Start: 09-25-2022 Measuring intake and output [facility] Work Phone: Start: 09-25-2022 Patient education [facility] Work Phone: Start: 09-25-2022 Taking patient vital signs [facility] Work Phone: Start: 09-25-2022 Vital signs measurements [facility] Work Phone: Start: 09-25-2022 End: 09-25-[address] [facility] Work Phone: Start: 08-18-20[address] Blood chemistry [facility] Work Phone: Start: 08-17-2022 Patient discharge [facility] Work Phone: Start: 08-15-2022 Application of inter mittent pneumatic compression device [facility] Work Phone: Start: 08-15-2022 Following clinical p athway protocol [facility] Work Phone: Start: 08-15-2022 Assessment of risk o f venous thromboembolism [facility] Work Phone: Start: 08-15-2022 [facility]ation [facility] Work Phone: Start: 08-15-2022 Insertion of cathete r into peripheral vein [facility] Work Phone: Start: 08-15-2022 Measuring intake and output [facility] Work Phone: Start: 08-15-2022 Oxygen therapy [facility] Work Phone: Start: 08-15-2022 Providing care accor ding to standard [facility] Work Phone: Start: 08-15-2022 [facility] Work Phone: Start: 08-15-2022 Verification routine [facility] Work Phone: Start: 08-15-2022 Admission procedure [facility] Work Phone: Blood chemistry [facility] Work Phone: CBC W Auto Different ial panel - Blood [facility] Work Phone: Folate [Mass/volume] in Serum or Plasma [facility] Work Phone: Patient Education [facility] Work Phone: Patient referral [facility] Work Phone: Vitamin B12 measurement [facility] Work Phone: Immunizations Immunization Date Immunization Notes Care Provider Fa erik 09-18-2022 influenza, injectabl e, quadrivalent, preservative free [facility] 09-18-2022 influenza, seasonal, injectable Dr. Gregg Powers Work Phone: [facility] 07-28-2021 influenza, injectabl e, quadrivalent, preservative free [facility] 07-28-2021 influenza, seasonal, injectable Dr. Gregg Powers Work Phone: [facility] 07-28-[address] Gregg Powers Work Phone: [facility] 03-27-2021 pneumococcal polysaccharide vaccine, [address] Gregg Powers Work Phone: [facility] 03-27-2021 pneumococcal vaccine , unspecified formulation Dr. Gregg Powers Work Phone: [facility] Work Phone: 02-21-2021 Covid (Pfizer) Dr. Gregg Powers Work Phone: [facility] 01-31-2021 Covid (Pfizer) Dr. Gregg Powers Work Phone: [facility] 09-05-2020 influenza, injectabl e, quadrivalent, preservative free [facility] 09-05-2020 influenza, seasonal, injectable Dr. Gregg Powers Work Phone: [facility] 01-31-2020 pneumococcal conjuga te vaccine, [address] Gregg Powers Work Phone: [facility] 01-31-2020 pneumococcal vaccine , unspecified formulation Dr. Gregg Powers Work Phone: [facility] Work Phone: Payers Date Payer Category Payer Self-pay [id number] 2024 Medicare [id number] 2024 Unknown [id number] Private Health Insurance [facility] [id number] Unknown [id number] Unknown [id number] Unknown [id number] Unknown [id number] Unknown [id number] Unknown [id number] Social History Date Type Detail Facility Start: 02-06-2022 End: 05-19-2023 Tobacco smoking status NHIS Unknown if ever smoked [facility] Start: 11-30-2019 [facility] Start: 11-30-2019 [facility] Start: 1955 Sex Assigned At Male [facility] Start: 05-19-2023 Tobacco smoking stat us CAIS Never smoked tobacco (finding) [facility] Start: 02-24-2025 End: 03-08-2025 Sex Male (finding) [facility] Goals Date Patient Goal Desired Activity /State Functional Status Date Assessment Result Facility 09-26-2022 Functional status Up ad nehemiah;Bathroom Priv ilege [facility] Work Phone: 08-17-2022 Functional status [facility] Work Phone: Mental Status Date Assessment Result Facility 09-26-2022 Cognitive function Voice/Name [facility] Work Phone: 08-17-2022 Cognitive function Voice/Name [facility] Work Phone: Evaluation note 02-19-2025 Note Date & Type Note Facility 02-19-2025 Evaluation note Diagnosis Onset Date Resolution Elevated PSA chronic February 19, 2025 12:55pm Gout chronic February 19 12:55pm Hyperlipidemia chronic January 12:55pm Hypertension chronic February 19, 2025 12:55pm Osteoarthritis chronic January 12:55pm [facility] Work Phone: Evaluation note Note Date & Type Note Facility Evaluation note Diagnosis Onset Date Encounter for preventative a dult health care examination chronic Gout chronic Osteoarthritis chronic [facility] Work Phone: Evaluation note Note Date & Type Note Facility Evaluation note Diagnosis Onset Date Preoperative clearance acute [facility] Work Phone: Evaluation note Note Date & Type Note Facility Evaluation note Diagnosis Onset Date Preoperative clearance acute Acute hyponatremia acute Acute kidney injury acute Acute urinary retention acut e Leukocytosis acute [facility] Work Phone: Evaluation note Note Date & Type Note Facility Evaluation note Diagnosis Onset Date Preoperative clearance acute Acute hyponatremia resolved Acute kidney injury resolved Acute urinary retention reso lved Leukocytosis resolved Acute hyponatremia resolved Acute kidney injury resolved Acute urinary retention reso lved Status post left hip replacement noneactive Macrocytic anemia noneactive [facility] Work Phone: Evaluation note Note Date & Type Note Facility Evaluation note No assessment information availa ble [facility] Work Phone: Evaluation note Note Date & Type Note Facility Evaluation note Diagnosis Onset Date Encounter for preventative a dult health care examination chronic Gout chronic [facility] Work Phone: Evaluation note Note Date & Type Note Facility Evaluation note Diagnosis Onset Date Encounter for preventative a dult health care examination chronic Gout chronic Abdominal pain acute Kidney stones acute Left flank pain acute [facility] Work Phone: Reason for referral (narrative) Note Date & Type Note Facility Reason for referral (narrative) No reason for referral information available [facility] Work Phone: Summary Purpose Family History No Family History Records Found Relationship Condition Age at Onset Recorded Date/T mitchel mother Hypertension Unknown Advance Directives No Advanced Directives Records Found Advance Directive Response Recorded Date/ Time Living Will Yes December 01 0 1:08am Power of Lead Technologist In Cytogenetics Yes December 01 020 1:08am Advance Directive Response Recorded Date/ Time Name of Medical Power of Lead Technologist In Cytogenetics Garland pisano August 15, 2022 3:56am Living Will Yes August 15, 2022 3:56am Power of Lead Technologist In Cytogenetics Yes July 3:56am Advance Directive Response Recorded Date/ Time Name of Medical Power of Lead Technologist In Cytogenetics Garland pisano August 15, 2022 7:00am Living Will Yes August 15, 2022 7:00am Power of Lead Technologist In Cytogenetics Yes July 7:00am Advance Directive Response Recorded Date/ Time Name of Medical Power of Lead Technologist In Cytogenetics Garland pisano August 15, 2022 7:00am Name of Medical Power of Lead Technologist In Cytogenetics GARLAND PISANO - September 25, 2022 4:30pm Living Will Yes September 25 4:30pm Power of Lead Technologist In Cytogenetics Yes September 25, 2022 4:30pm Advance Directive Response Recorded Date/ Time Living Will Yes September 25 3:30pm Power of Lead Technologist In Cytogenetics Yes September 25, 2022 3:30pm Advance Directive Response Recorded Date/ Time Living Will Yes September 25 4:30pm Power of Lead Technologist In Cytogenetics Yes September 25, 2022 4:30pm Advance Directive Response Recorded Date/ Time Living Will Yes May 19, 2023 7:59am Power of Lead Technologist In Cytogenetics Yes May 19 7:59am Advance Directive Response Recorded Date/ Time Living Will Yes May 19, 2023 8:59am Do you have a Healthcare Power of Lead Technologist In Cytogenetics? Yes May 19, 2023 8:59am Chief Complaint and Reason for Visit Chief Complaint 1 Y FU ELEVATED PSA Reason for Visit Encounter for [facility] adult health care examination Gout Osteoarthritis Chief Complaint ELEVATED PSA surgery clearance Reason for Visit Preoperative clearan ce Chief Complaint surgery clearance PRE OP PRE OP MINA, HYPONATREMIA MINA, HYPONATREMIA Reason for Visit Preoperative clearan ce Acute hyponatremia Acute kidney injury Acute urinary retention Leukocytosis Chief Complaint surgery clearance PRE OP PRE OP MINA, HYPONATREMIA MINA, HYPONATREMIA MINA, HYPONATREMIA Reason for Visit Preoperative clearan ce Acute hyponatremia Acute kidney injury Acute urinary retention Leukocytosis Chief Complaint surgery clearance PRE OP PRE OP MINA, HYPONATREMIA MINA, HYPONATREMIA MINA, HYPONATREMIA MINA, HYPONATREMIA [facility] FU Reason for Visit Preoperative clearan ce Acute hyponatremia Acute kidney injury Acute urinary retention Leukocytosis Acute hyponatremia Acute kidney injury Acute urinary retention Status post left hip replacement Macrocytic anemia Chief Complaint surgery clearance PRE OP PRE OP MINA, HYPONATREMIA MINA, HYPONATREMIA MINA, HYPONATREMIA MINA, HYPONATREMIA [facility] FU CYSTO TURP OLYMPUS Reason for Visit Preoperative clearan ce Acute hyponatremia Acute kidney injury Acute urinary retention Leukocytosis Acute hyponatremia Acute kidney injury Acute urinary retention Status post left hip replacement Macrocytic anemia Chief Complaint 1 Y FU Reason for Visit Encounter for preven tative adult health care examination Gout Chief Complaint 1 Y FU occ abd pain ABD PAIN Reason for Visit Encounter for preven tative adult health care examination Gout Abdominal pain Kidney stones Left flank pain Chief Complaint Admit Date 6 M FU February 19, 2025 12: 55pm Reason for Visit Admit Date Elevated PSA February 19, 2025 12: 55pm Gout February 19, 2025 12: 55pm Hyperlipidemia February 19, 2025 12: 55pm Hypertension February 19, 2025 12: 55pm Osteoarthritis February 19, 2025 12: 55pm Additional Source Comments (unrecognized sect ion and content) No Status Records FoundNo Status Records Found INFORMATION SOURCE (unrecogn ized section and content) DATE CREATED [facility] CREATED AUTHOR AUTHOR'S KURT ATION 08/20/2025 [facility] Goals (unrecognized section and content) Goals may be documented in a n alternate sectionGoals may be documented in an alternate sectionGoals may be documented in an alternate sectionGoals may be documented in an alternate sectionGoals may be documented in an alternate sectionGoals may be documented in an alternate sectionGoals may be documented in an alternate sectionGoals may be documented in an alternate sectionGoals may be documented in an alternate section Care Teams (unrecognized sec tion and content) Team Status: Active Member Role Status Dates Dr. Gregg Powers MD Family Provider Active Dr. Gregg Powers MD Primary Care Provider Active Team Status: Inactive Member Role Status Dates Dr. Gregg Powers MD Primary Care Provider Active Dr. Eitan Patterson MD Attending Provider, Referr ing Provider Active Team Status: Inactive Member Role Status Dates Dr. Gregg Powers MD Primary Care Provider, Refer ring Provider Active Joon Phillip MEDICAL CLAIMS ANALYST, MEDICAL CLAIMS ANALYST-C Attending Provider Active Team Status: Inactive Member Role Status Dates Dr. Gregg Powers MD Primary Care Provider Active Joon Phillip MEDICAL CLAIMS ANALYST, MEDICAL CLAIMS ANALYST-C Attending Provider, Referring Prov ider Active Team Status: Inactive Member Role Status Dates Dr. Gregg Powers MD Primary Care P rovider, Attending Provider, Referring Provider Active Team Status: Inactive Member Role Status Dates Dr. Gregg Powers MD Primary Care Provider Active Start: February 19, 2025 End: February 19, 2025 Dr. Gregg Powers MD Attending Provider Active Start: February 19, 2025 End: February 19, 2025 Dr. Gregg Powers MD Referring Provider Active Start: February 19, 2025 End: February 19, 2025 Team Status: Inactive Member Role Status Dates Dr. Gregg Powers MD Primary Care Provider Active Start: March 05, 2025 End: March 05, 2025 Dr. Eitan Patterson MD Attending Provider Active Start: March 05, 2025 End: March 05, 2025 Dr. Eitan Patterson MD Referring Provider Active Start: March 05, 2025 End: March 05, 2025 FOR RECORDS PERTAINING TO PATIENTS WHO ARE OR HAVE BEEN ENROLLED IN A CHEMICAL DEPENDENCY/SUBSTANCEABUSE PROGRAM, SOME INFORMATION MAY BE OMITTED. This clinical summary was aggregated from multiple sources. Caution should be exercised in using it in the provision of clinical care. This summary normalizes information from multiple sources, and as a consequence, information in this document may materially change the coding, format and clinical context of patient data. In addition, data may be omitted in some cases. CLINICAL DECISIONS SHOULD BE BASED ON THE PRIMARY CLINICAL RECORDS. [facility] [employer] provides no warranty or guarantee of the accuracy or completeness of information in this document.
[2025-08-21 08:59] LABS: AST(SGOT) 20 U/L (<=37); Alanine Aminotransfer ALT/SGPT 13 U/L (<=46); Albumin, Serum 4.2 g/dL (3.4-4.8); Alkaline Phosphatase 79 U/L (40-129); Anion Gap 11 (5-15); BUN 16 mg/dL (4-19); BUN/Creat Ratio 16.1 RATIO (10-20); Calcium,Total 9.3 mg/dL (7.6-11.0); Carbon Dioxide 26.1 mmol/L (21.0-32.0); Chloride 103 mmol/L (98-108); Cholesterol 187 mg/dL (<=200); Globulin 2.5 g/dL (2.2-4.2); Glucose 87 mg/dL (70-99); Low Density Lipoprotein Calc. 112 mg/dL; Magnesium 2.1 mg/dL (1.5-2.2); Potassium 4.0 mmol/L (3.3-5.1); Triglycerides 114 mg/dL; Very Low Density Lipoprotein 23 mg/dL (5-40); cholesterol:hdl ratio screen 3.58
== END | disposition home or self-care (01) ==
LOC: LAB 07:08
PROVIDERS: PCP Internal Medicine; Referring Provider Internal Medicine; Visit Provider Internal Medicine
DX: I10 Essential (primary) hypertension (principal); E78.5 Hyperlipidemia, unspecified
CPT/HCPCS: 36415; 80053; 80061; 83735